=== PATIENT | female | born 1930 | race Caucasian/White ===

== ENCOUNTER 2017-12-12 15:03 | Inpatient (IN) | payer MEDICARE, BC ==
[~2017-12-12 15:03] MED LIST: ROCURONIUM BROMIDE INJ 50 MG/5 ML VIAL IV ONE; SUCCINYLCHOLINE CHLORIDE INJ 200 MG/10 ML VIAL ONE
--- NOTE | 2017-12-12 15:18 | ER Document Report ---
ED General - General Stated Complaint: VOMITING Time Seen by Provider: 12/12/17 15:17 Notes: 87-year-old female patient brought to the emergency department by her son for evaluation of nausea and vomiting. Vomiting started on Friday. Has gotten worse. States that she had abdominal pain in the central abdomen. Has never had this pain before. Denies any previous surgeries. Is hard of hearing but otherwise has no major issues. Does have difficulty ambulating but uses a walker. Takes care of her 94-year-old . TRAVEL OUTSIDE OF THE [place] IN LAST 30 DAYS: No - HPI Onset: Other - 3 days ago - Related Data Allergies/Adverse Reactions: No Known Allergies Allergy (Verified 12/12/17 17:51) Past Medical History - General Information source: Patient, Relative - Social History Smoking Status: Never Smoker Cigarette use (# per day): No Frequency of alcohol use: None Drug Abuse: None Lives with: Spouse/Significant other Family History: Reviewed & Not Pertinent - Past Medical History Cardiac Medical History: Reports: None Pulmonary Medical History: Reports: None Other: Glaucoma Neurological Medical History: Reports: None Endocrine Medical History: Reports: None Renal/ Medical History: Reports: None GI Medical History: Reports: None Psychiatric Medical History: Reports: Hx Dementia Infectious Medical History: Reports: None Past Surgical History: Reports: None Review of Systems - Review of Systems Constitutional: denies: Chills, Diaphoresis, Malaise, Weakness EENT: denies: Throat pain, Difficulty swallowing, Mouth swelling, Dental problem Respiratory: denies: Cough, Short of breath, Wheezing Gastrointestinal: Abdominal pain, Diarrhea, Nausea, Vomiting Musculoskeletal: No symptoms reported Skin: No symptoms reported Neurological/Psychological: No symptoms reported Physical Exam - Vital signs Vitals: Resp Pulse Ox 17 93 12/12/17 16:34 12/12/17 16:34 Interpretation: Tachycardic - General General appearance: Appears well, Alert - HEENT Head: Normocephalic, Atraumatic Eyes: Normal Pupils: PERRL Mucous membranes: Dry - Respiratory Respiratory status: No respiratory distress Chest status: Nontender Breath sounds: Normal Chest palpation: Normal - Cardiovascular Rhythm: Tachycardia Heart sounds: Normal auscultation Murmur: No - Abdominal Inspection: Normal Distension: No distension Bowel sounds: Normal Tenderness: Tender, Other - neg guarding, negative rebound, diffuse tenderness of the abdomen Organomegaly: No organomegaly - Back Back: Normal, Nontender - Extremities General upper extremity: Normal inspection, Nontender, Normal color, Normal ROM , Normal temperature General lower extremity: Normal inspection, Nontender, Normal color, Normal ROM , Normal temperature, Normal weight bearing. No: Summer's sign - Neurological Neuro grossly intact: Yes Cognition: Normal Orientation: AAOx4 [place] Coma Scale Eye Opening: Spontaneous Jinny Coma Scale Verbal: Oriented Pil[place] Coma Scale Motor: Obeys Commands Pilger Coma Scale Total: 15 Speech: Normal Motor strength normal: LUE, RUE, LLE, RLE Sensory: Normal - Psychological Associated symptoms: Normal affect, Normal mood - Skin Skin Temperature: Warm Skin Moisture: Dry Skin Color: Normal Course - Re-evaluation Re-evalutation: 12/12/17 16:56 CT scan of the abdomen and pelvis, labs, IV fluids, nausea control and reassess. 12/12/17 19:07 Patient now vomiting of bilious emesis. Will take to CT as continuing to drink contrast is futile. Favor more of a bowel obstruction pattern at this time. 12/12/17 19:33 CT scan reveals small bowel obstruction. NG tube ordered and will consult with surgery. Anticipate admit. 12/12/17 20:[address] Maldonado with general surgery. He will see patient shortly. 12/12/17 20:34 Surgeon in to see patient at this time. 12/12/17 20:54 Dr. Maldonado has seen patient. Will take to the OR tonight. - Vital Signs Vital signs: Temp Pulse Resp BP Pulse Ox 18 141/70 H 93 12/12/17 19:36 12/12/17 19:36 12/12/17 19:36 - Laboratory Result Diagrams: 12/12/17 16:25 12/12/17 16:25 Laboratory results interpreted by me: 12/12/17 12/12/17 12/12/17 16:25 16:25 18:30 WBC 13.0 H Seg Neutrophils % 78.4 H Lymphocytes % 9.9 L Absolute Neutrophils 10.2 H Absolute Monocytes 1.5 H Chloride 93 L Carbon Dioxide 38 H BUN 51 H Creatinine 1.31 H Est GFR ( Amer) 46 L Est GFR (Non-Af Amer) 38 L AST 59 H Urine Protein 30 H Urine Ketones TRACE H Urine Blood SMALL H Urine Urobilinogen 2.0 H Ur Leukocyte Esterase MODERATE H - EKG Interpretation by Me EKG shows normal: [place], Intervals, QRS Complexes, ST-T Waves Rate: Tachycardia Discharge - Discharge Clinical Impression: Small bowel obstruction Condition: Good Disposition: ADMITTED INPATIENT Admitting Provider: Radha Joyce [facility] [place] Unit Admitted: Medical Floor Referrals: CHINA CHAMBERLAIN FNP [Primary Care Provider] - Follow up as needed
[2017-12-12] MEDS ORDERED: ONDANSETRON HCL INJ/PF 4 MG/2 ML SDV IV ONE (15:53)
[2017-12-12 16:43] LABS: ABSOLUTE LYMPHOCYTES (AUTO) 1.3 10^3/uL (0.5-4.7); ABSOLUTE MONOCYTES (AUTO) 1.5 10^3/uL (0.1-1.4); ABSOLUTE NEUT (AUTO) 10.2 10^3/uL (1.7-8.2); BASOPHILS % (AUTO) 0.3 % (0-2); EOSINOPHILS % (AUTO) 0.2 % (0-6); HEMATOCRIT 39.4 % (36.0-47.0); HEMOGLOBIN 13.3 g/dL (12.0-15.5); LYMPHOCYTES % (AUTO) 9.9 % (13-45); MEAN CORPUSCULAR HEMOGLOBIN 32.1 pg (27.0-33.4); MEAN CORPUSCULAR HGB CONC 33.8 g/dL (32.0-36.0); MEAN CORPUSCULAR VOLUME 95 fl (80-97); MONOCYTES % (AUTO) 11.2 % (3-13); PLATELET COUNT 260 10^3/uL (150-450); RED BLOOD COUNT 4.15 10^6/uL (3.72-5.28); RED CELL DISTRIBUTION WIDTH 13.5 % (11.5-14.0); SEGMENTED NEUTROPHILS % (AUTO) 78.4 % (42-78); TOTAL CELLS COUNTED % (AUTO) 100 %
[2017-12-12 17:04] LABS: ALANINE AMINOTRANSFERASE 47 U/L (9-52); ALKALINE PHOSPHATASE 75 U/L (38-126); ANION GAP 10 (5-19); ASPARTATE AMINO TRANSFERASE 59 U/L (14-36); BILIRUBIN,DIRECT 0.3 mg/dL (0.0-0.4); BILIRUBIN,TOTAL 0.5 mg/dL (0.2-1.3); BLOOD UREA NITROGEN 51 mg/dL (7-20); CALCIUM 9.4 mg/dL (8.4-10.2); CARBON DIOXIDE 38 mmol/L (22-30); CHLORIDE 93 mmol/L (98-107); GLUCOSE 108 mg/dL (75-110); LIPASE 208.7 U/L (23-300); POTASSIUM 4.2 mmol/L (3.6-5.0); SODIUM 141.2 mmol/L (137-145); TOTAL PROTEIN 6.5 g/dL (6.3-8.2)
[2017-12-12] MEDS ORDERED: NORMAL SALINE 1000 ML 1,000 ML IV ONE (18:21)
[2017-12-12 19:05] LABS: A TYPE INFLUENZA AG NEGATIVE (NEGATIVE)
[2017-12-12 19:06] LABS: B INFLUENZA AG NEGATIVE (NEGATIVE)
[2017-12-12 19:18] LABS: APPEARANCE,URINE SLIGHTLY-CLOUDY; BILIRUBIN,URINE NEGATIVE (NEGATIVE); COLOR,URINE YELLOW; GLUCOSE, URINE NEGATIVE (NEGATIVE); KETONES,URINE TRACE mg/dL (NEGATIVE); LEUKOCYTE ESTERASE,URINE MODERATE (NEGATIVE); NITRITE,URINE NEGATIVE (NEGATIVE); PROTEIN,URINE 30 mg/dL (NEGATIVE); URINE SPECIFIC GRAVITY 1.019
--- NOTE | 2017-12-12 19:28 | RADIOLOGY REPORT (SQ) ---
EXAM DESCRIPTION: CT ABD/PELVIS WITH IV ORAL COMPLETED DATE/TIME: 12/12/2017 7:14 pm REASON FOR STUDY: diffuse abd pain COMPARISON: None. TECHNIQUE: CT scan of the abdomen and pelvis performed using helical scanning technique with dynamic intravenous contrast injection. Oral contrast also administered. Images reviewed with lung, soft ti ssue, and bone windows. Reconstructed coronal and sagittal MPR images reviewed. Delayed images for ev aluation of the urinary system also acquired. All images stored on PACS. All CT scanners at this facility use dose modulation, iterative reconstruction, and/or weight based d osing when appropriate to reduce radiation dose to as low as reasonably achievable (ALARA). [facility]: Dose Right [facility]: CareDose [facility]: Dose Right [facility]: Teradose 4D [facility]: Deskarma CONTRAST TYPE AND DOSE: contrast/concentration: Isovue 370.00 mg/ml; Total Contrast Delivered: 98.0 ml; Total Saline Delivered: 72.1 ml RENAL FUNCTION: Creatinine measures 1.31 RADIATION DOSE: CT Rad equipment meets quality standard of care and radiation dose reduction techniq ues were employed. CTDIvol: 6.0 - 8.3 mGy. DLP: 711 mGy-cm.. LIMITATIONS: None. FINDINGS: LOWER CHEST: Mild dependent subsegmental atelectasis. Small left pleural effusion. LIVER: Normal size. No masses. No dilated ducts. SPLEEN: Normal size. No focal lesions. PANCREAS: No masses. No significant calcifications. No adjacent inflammation or peripancreatic fluid collections. Pancreatic duct not dilated. GALLBLADDER: No identified stones by CT criteria. No inflammatory changes to suggest cholecystitis. ADRENAL GLANDS: No significant masses or asymmetry. RIGHT KIDNEY AND URETER: No solid masses. No significant calcifications. No hydronephrosis or hyd roureter. LEFT KIDNEY AND URETER: No solid masses. No significant calcifications. No hydronephrosis or hydr oureter. AORTA AND VESSELS: No aneurysm. No dissection. Renal arteries, SMA, celiac without stenosis. RETROPERITONEUM: No retroperitoneal adenopathy, hemorrhage or masses. BOWEL AND PERITONEAL CAVITY: There is fluid distended loops of small bowel measuring up to 4.2 cm. T here is a transition point is seen within the right lower quadrant on series 3, image 53 in series 60 1 image 31 compatible with high-grade small bowel obstruction. Note is made of inflammatory change i nvolving the terminal ileum distal to this transition point raising suspicion of infectious or inflam matory bowel disease. The colon is decompressed. There is mild stranding in nodularity involving th e omentum best seen on sagittal images 602 image 41 presumably reactive to the obstruction. There is no pneumatosis or free air. APPENDIX: Not visualized. PELVIS: No mass. No free fluid. Normal bladder. ABDOMINAL WALL: No masses. No hernias. BONES: No significant or acute findings. OTHER: No other significant finding. IMPRESSION: CT FINDINGS COMPATIBLE WITH HIGH GRADE DISTAL SMALL BOWEL OBSTRUCTION WITH TRANSITION PO INT IN THE RIGHT LOWER QUADRANT. ADDITIONAL NOTE MADE OF INFLAMMATION INVOLVING THE TERMINAL ILEUM S USPICIOUS FOR INFECTIOUS OR INFLAMMATORY BOWEL DISEASE. CORRELATE WITH PATIENT'S CLINICAL HISTORY. SMALL LEFT PLEURAL EFFUSION IN NODULAR INFLAMMATORY CHANGE INVOLVING THE OMENTUM PRESUMABLY REACTIVE TO OBSTRUCTION. TECHNICAL DOCUMENTATION: JOB ID: [id number] Quality ID # [id number]: Final reports with documentation of one or more dose reduction techniques (e.g., Au tomated exposure control, adjustment of the mA and/or kV according to patient size, use of iterative reconstruction technique) 2010 [employer]- All Rights Reserved
--- NOTE | 2017-12-12 21:00 | PDOC H&P ---
History of Present Illness Admission Date/PCP: DARRICK MONAHAN Patient complains of: nausea and bilious vomiting x 3 days History of Present Illness: BENJAMIN PRAJAPATI is a 87 year old female with 3 day hx of nausea and emesis, now bilious, progressive abdominal discomfort, obstipation for several days (not clear, she has poor memory). She has been brought ot the ER by her son who has provided most of the history. A CT scan AP has been done and it is significant for small bowel mechanical obstruction. She denies a previous hx of abdominal surgery. Past Medical History Cardiac Medical History: Reports: None Pulmonary Medical History: Reports: None Neurological Medical History: Reports: None Endocrine Medical History: Reports: None Renal/ Medical History: Reports: None GI Medical History: Reports: None Psychiatric Medical History: Reports: Dementia Infectious Medical History: Reports: None Past Surgical History Past Surgical History: Reports: None Social History Lives with: Spouse/Significant other Smoking Status: Never Smoker Family History Family History: Reviewed & Not Pertinent Parental Family History Reviewed: No Children Family History Reviewed: No Sibling(s) Family History Reviewed.: No Medication/Allergy Home Medications: Aspirin [Aspirin 81 mg Chewable Tablet] 81 mg PO DAILY 12/12/17 Brimonidine Tartrate [Alphagan P] 1 drop OD BID 12/12/17 Garlic 1,000 mg PO DAILY 12/12/17 Latanoprost [Latanoprost] 1 drop OU NOON 12/12/17 Lorazepam [Ativan 0.5 mg Tablet] 0.5 mg PO DAILY 12/12/17 Memantine HCl [Namenda 10 mg Tablet] 10 mg PO DAILY 12/12/17 Multivit with Iron,Minerals [Polyvitamin with Iron] 1 each PO DAILY 12/12/17 Ondansetron [Zofran Odt 4 mg Tablet] 1 - 2 tab PO Q4HP PRN 12/12/17 Sertraline HCl [Zoloft 50 mg Tablet] 75 mg PO DAILY 12/12/17 Spironolact/Hydrochlorothiazid [Aldactazide 50-50 Tablet] 1 each PO DAILY Allergies/Adverse Reactions: No Known Allergies Allergy (Verified 12/12/17 17:51) Physical Exam Vital Signs: Temp Pulse Resp BP Pulse Ox 18 141/70 H 93 12/12/17 19:36 12/12/17 19:36 12/12/17 19:36 General appearance: PRESENT: mild distress Head exam: PRESENT: normocephalic Eye exam: PRESENT: EOMI Neck exam: PRESENT: full ROM Cardiovascular exam: PRESENT: RRR GI/Abdominal exam: PRESENT: diminished bowel sounds, distended, tenderness - diffusely with facial grimacing Rectal exam: PRESENT: deferred Extremities exam: PRESENT: full ROM Neurological exam: PRESENT: alert, oriented to time, oriented to situation Skin exam: PRESENT: dry Results Laboratory Results: 12/12/17 16:25 12/12/17 16:25 12/12/17 12/12/17 12/12/17 16:25 16:25 16:25 WBC 13.0 H RBC 4.15 Hgb 13.3 Hct 39.4 MCV 95 MCH 32.1 MCHC 33.8 RDW 13.5 Plt Count 260 Seg Neutrophils % 78.4 H Lymphocytes % 9.9 L Monocytes % 11.2 Eosinophils % 0.2 Basophils % 0.3 Absolute Neutrophils 10.2 H Absolute Lymphocytes 1.3 Absolute Monocytes 1.5 H Absolute Eosinophils 0.0 Absolute Basophils 0.0 Sodium 141.2 Potassium 4.2 Chloride 93 L Carbon Dioxide 38 H Anion Gap 10 BUN 51 H Creatinine 1.31 H Est GFR ( Amer) 46 L Est GFR (Non-Af Amer) 38 L Glucose 108 Lactic Acid 1.0 Calcium 9.4 Total Bilirubin 0.5 AST 59 H ALT 47 Alkaline Phosphatase 75 Total Protein 6.5 Albumin 4.0 Lipase 208.7 Urine Color Urine Appearance Urine pH Ur Specific [place] Urine Protein Urine Glucose (UA) Urine Ketones Urine Blood Urine Nitrite Ur Leukocyte Esterase Urine WBC (Auto) Urine RBC (Auto) 12/12/17 18:30 WBC RBC Hgb Hct MCV MCH MCHC RDW Plt Count Seg Neutrophils % Lymphocytes % Monocytes % Eosinophils % Basophils % Absolute Neutrophils Absolute Lymphocytes Absolute Monocytes Absolute Eosinophils Absolute Basophils Sodium Potassium Chloride Carbon Dioxide Anion Gap BUN Creatinine Est GFR ( Amer) Est GFR (Non-Af Amer) Glucose Lactic Acid Calcium Total Bilirubin AST ALT Alkaline Phosphatase Total Protein Albumin Lipase Urine Color YELLOW Urine Appearance SLIGHTLY-CLOUDY Urine pH 6.0 Ur Specific [place] 1.019 Urine Protein 30 H Urine Glucose (UA) NEGATIVE Urine Ketones TRACE H Urine Blood SMALL H Urine Nitrite NEGATIVE Ur Leukocyte Esterase MODERATE H Urine WBC (Auto) 57 Urine RBC (Auto) 2 12/12/17 16:25 Troponin I 0.026 Impressions: Abdomen/Pelvis CT 12/12/17 00:00 IMPRESSION: CT FINDINGS COMPATIBLE WITH HIGH GRADE DISTAL SMALL BOWEL OBSTRUCTION WITH TRANSITION POINT IN THE RIGHT LOWER QUADRANT. ADDITIONAL NOTE MADE OF INFLAMMATION INVOLVING THE TERMINAL ILEUM SUSPICIOUS FOR INFECTIOUS OR INFLAMMATORY BOWEL DISEASE. CORRELATE WITH PATIENT'S CLINICAL HISTORY. SMALL LEFT PLEURAL EFFUSION IN NODULAR INFLAMMATORY CHANGE INVOLVING THE OMENTUM PRESUMABLY REACTIVE TO OBSTRUCTION. Assessment & Plan - Plan Summary Plan Summary: IV Aggressive hydration NGT placement preop Consent for exploratory laparotomy, lysis of adhesions, bowel resection, possible ostomy emergently tonight Procedure, risks benefits, complications, including infection, stroke, discussed with the patient and son; their questions were answered and the patient decided to proceed.
[2017-12-12] MEDS ORDERED: NORMAL SALINE 1000 ML 1,000 ML IV PRN (21:05)
[2017-12-12] MEDS ORDERED: MIDAZOLAM 2 MG/2 ML INJ ONE (21:17)
[2017-12-12] MEDS ORDERED: FENTANYL CITRATE INJ/PF 100 MCG/2 ML AMPUL ONE (21:17)
[2017-12-12] MEDS ORDERED: PROPOFOL INJ 200 MG/20 ML VIAL IV ONE (21:17)
[2017-12-12] MEDS ORDERED: MORPHINE SULFATE 10 MG/ML INJ ONE (21:18)
[2017-12-12] MEDS ORDERED: ACETAMINOPHEN 0 ML IV ONE (21:18)
[2017-12-12] MEDS ORDERED: EPHEDRINE SULFATE INJ 50 MG/1 ML AMPULE ONE (21:29)
[2017-12-12] MEDS ORDERED: BUPIVACAINE HCL 0.25 % INJ/PF (2.5 MG/1 ML) 30 ML VIAL ONE (21:29)
[2017-12-12] MEDS ORDERED: BUPIVACAINE INJ/PF LIPOSOME/PF 266 MG/20 ML SDV ONE (21:29)
[2017-12-12] MEDS ORDERED: FAMOTIDINE INJ/PF 20 MG/2 ML SDV IV SCH (22:00)
[2017-12-12] MEDS ORDERED: BUPIVACAINE HCL 0.25% /EPINEPHRINE INJ/PF 30 ML SDV ONE (22:34)
[2017-12-12] MEDS ORDERED: BUPIVACAINE HCL 0.5%-EPI 1:200000 INJ/PF 30 ML VIAL ONE ×2 (22:34→22:39)
[2017-12-12] MEDS ORDERED: CEFOXITIN 1 GM/D5W RTU 2 GM/100 ML RTUPB IV ONE (22:37)
[2017-12-12] MEDS ORDERED: MORPHINE SULFATE 10 MG/ML INJ IV PRN (23:22)
--- NOTE | 2017-12-12 23:22 | Operative Report ---
Operative Report DATE OF SURGERY: 12/12/17 PREOPERATIVE DIAGNOSIS: mechanical small bowel obstruction POSTOPERATIVE DIAGNOSIS: same, secondary to adhesions OPERATION: eexploratory laparotomy, lysis of adhesions SURGEON: JANI SALGUERO 1ST THROUGH FREIGHT ENGINEER: none ANESTHESIA: GA - plus 40 mL 05% marcaine with epi COMPLICATIONS: none ESTIMATED BLOOD LOSS: < 10 mL INTRAOPERATIVE FINDINGS: adhesive bands which were compressing the lumen of two loops if terminal ileum PROCEDURE: Exploratory laparotomy, lysis of adhesions
[2017-12-12] MEDS ORDERED: PROPOFOL 100 ML IV ONE (23:37)
--- NOTE | 2017-12-13 00:38 | RADIOLOGY REPORT (SQ) ---
EXAM DESCRIPTION: CHEST SINGLE VIEW CLINICAL HISTORY: 87 years, Female, intubation COMPARISON: None. NUMBER OF VIEWS: 1 LIMITATIONS: None. FINDINGS: Mild emphysematous hyperinflation, small left basilar opacity-effusion, tip of an endotracheal tube is likely 2.8 cm from the juan a; juan a is partially obscured by an overlying EKG leads. Normal cardiac silhouette. Atherosclerosis. Likely adequate enteric tube partially obscured at its tip. No pneumothorax. Mild osteoarthritis. IMPRESSION: Small left basilar opacity-fusion. Lines and tubes. 2010 [employer]- All Rights Reserved
[2017-12-13] MEDS: CEFOXITIN 1 GM/D5W RTU 1 GM/50 ML RTUPB IV SCH ×4 (02:29→21:10)
[2017-12-13] MEDS: FAMOTIDINE INJ/PF 20 MG/2 ML SDV IV SCH ×2 (02:29→21:11)
[2017-12-13] MEDS: HYDROMORPHONE HCL INJ/PF 2 MG/ML AMPULE IV PRN ×2 (02:39→08:01)
[2017-12-13 05:28] LABS: HEMATOCRIT 35.7 % (36.0-47.0); HEMOGLOBIN 12.3 g/dL (12.0-15.5); MEAN CORPUSCULAR HEMOGLOBIN 32.6 pg (27.0-33.4); MEAN CORPUSCULAR HGB CONC 34.4 g/dL (32.0-36.0); MEAN CORPUSCULAR VOLUME 95 fl (80-97); PLATELET COUNT 205 10^3/uL (150-450); RED BLOOD COUNT 3.78 10^6/uL (3.72-5.28); RED CELL DISTRIBUTION WIDTH 13.2 % (11.5-14.0); WHITE BLOOD COUNT 17.6 10^3/uL (4.0-10.5)
[2017-12-13 05:53] LABS: ARTERIAL BLOOD BASE EXCESS 8.2 mmol/L; ARTERIAL BLOOD H2CO3 1.06 mmol/L (1.05-1.35); ARTERIAL BLOOD HCO3 30.7 mmol/L (20-26); ARTERIAL BLOOD O2 SATURATION 95.4 % (94-98); ARTERIAL BLOOD PCO2 35.1 mmHg (35-45); ARTERIAL BLOOD PH 7.56 (7.35-7.45); ARTERIAL BLOOD PO2 66.2 mmHg (80-100); ARTERIAL BLOOD TOTAL CO2 31.8 mmol/L (21-25)
[2017-12-13 05:54] LABS: ANION GAP 7 (5-19); BLOOD UREA NITROGEN 35 mg/dL (7-20); CALCIUM 7.8 mg/dL (8.4-10.2); CARBON DIOXIDE 32 mmol/L (22-30); CHLORIDE 101 mmol/L (98-107); GLUCOSE 108 mg/dL (75-110); MAGNESIUM 2.2 mg/dL (1.6-2.3); POTASSIUM 3.3 mmol/L (3.6-5.0); SODIUM 139.9 mmol/L (137-145)
[2017-12-13 05:57] LABS: ARTERIAL BLOOD FIO2 40%
[2017-12-13] MEDS: PROPOFOL 100 ML IV PRN ×2 (06:09→19:32)
--- NOTE | 2017-12-13 07:46 | RADIOLOGY REPORT (SQ) ---
EXAM DESCRIPTION: CHEST SINGLE VIEW CLINICAL HISTORY: 87 years, Female, ETT COMPARISON: 12/12/17. NUMBER OF VIEWS: 1 LIMITATIONS: None. FINDINGS: Small bibasilar opacity-effusion, moderate lung volume, adequate appearing endotracheal tube and enteric tube, no pneumothorax, normal cardiac silhouette, atherosclerosis, and mild osteoarthritis. IMPRESSION: No significant change.
--- NOTE | 2017-12-13 08:53 | PDOC PROGRESS REPORT ---
Subjective Progress Note for:: 12/13/17 Subjective:: intubated, comfortable, off sedation Reason For Visit: SMALL BOWEL OBSTRUCTION Physical Exam Vital Signs: Temp Pulse Resp BP Pulse Ox 98.8 F 69 12 114/56 L 96 12/13/17 08:00 12/13/17 08:00 12/13/17 08:00 12/13/17 08:00 12/13/17 08:00 Intake & Output 12/12/17 12/13/17 12/14/17 06:59 06:59 06:59 Intake Total 2878 Output Total 2009 50 Balance 868 -50 Weight 55.6 kg General appearance: PRESENT: no acute distress Respiratory exam: PRESENT: clear to auscultation sacha Cardiovascular exam: PRESENT: RRR GI/Abdominal exam: PRESENT: soft Results Laboratory Results: 12/13/17 05:10 12/13/17 05:10 12/12/17 12/13/17 12/13/17 22:05 05:10 05:10 WBC 17.6 H RBC 3.78 Hgb 12.3 Hct 35.7 L MCV 95 MCH 32.6 MCHC 34.4 RDW 13.2 Plt Count 205 Carbonic Acid HCO3/H2CO3 Ratio ABG pH ABG pCO2 ABG pO2 ABG HCO3 ABG O2 Saturation ABG Base Excess FiO2 Sodium 139.9 Potassium 3.3 L Chloride 101 Carbon Dioxide 32 H Anion Gap 7 BUN 35 H Creatinine 1.09 Est GFR ( Amer) 57 L Est GFR (Non-Af Amer) 47 L Glucose 108 Calcium 7.8 L Magnesium 2.2 Blood Type B NEGATIVE Antibody Screen POSITIVE 12/13/17 05:30 WBC RBC Hgb Hct MCV MCH MCHC RDW Plt Count Carbonic Acid 1.06 HCO3/H2CO3 Ratio 28:1 ABG pH 7.56 H ABG pCO2 35.1 ABG pO2 66.2 L ABG HCO3 30.7 H ABG O2 Saturation 95.4 ABG Base Excess 8.2 FiO2 40% Sodium Potassium Chloride Carbon Dioxide Anion Gap BUN Creatinine Est GFR ( Amer) Est GFR (Non-Af Amer) Glucose Calcium Magnesium Blood Type Antibody Screen Impressions: Abdomen/Pelvis CT 12/12/17 00:00 IMPRESSION: CT FINDINGS COMPATIBLE WITH HIGH GRADE DISTAL SMALL BOWEL OBSTRUCTION WITH TRANSITION POINT IN THE RIGHT LOWER QUADRANT. ADDITIONAL NOTE MADE OF INFLAMMATION INVOLVING THE TERMINAL ILEUM SUSPICIOUS FOR INFECTIOUS OR INFLAMMATORY BOWEL DISEASE. CORRELATE WITH PATIENT'S CLINICAL HISTORY. SMALL LEFT PLEURAL EFFUSION IN NODULAR INFLAMMATORY CHANGE INVOLVING THE OMENTUM PRESUMABLY REACTIVE TO OBSTRUCTION. Chest X-Ray 12/13/17 06:00 IMPRESSION: No significant change. Assessment & Plan - Plan Summary Plan Summary: A/ Apneic episodes off sedation POD #1 after expl. laparotomy, SHANKAR good UO still moderate NGT output Low K marginal ABG's P/ Replace K 40 mEq IVPB Continue IVF/NPO I would keep patient in the ICU for today Slow extubation
--- NOTE | 2017-12-13 08:54 | PDOC CONSULTATION ---
Consultation Consult Date: 12/13/17 Attending physician:: Dr Maldonado Consult reason:: Postoperative medical management History of Present Illness Admission Date/PCP: 12/12/17 21:01 DARRICK MONAHAN Patient complains of: Severe abdominal pain History of Present Illness: This is an 87-year-old old who presented to the ED with severe abdominal pain and was diagnosed of small bowel obstruction Patient underwent laparotomy with lysis of adhesions on Surgery was uncomplicated, patient was left intubated overnight in the intensive care unit Past Medical History Cardiac Medical History: Reports: None Pulmonary Medical History: Reports: None EENT Medical History: Reports: Other - Glaucoma Neurological Medical History: Reports: None Endocrine Medical History: Reports: None Renal/ Medical History: Reports: None GI Medical History: Reports: None Psychiatric Medical History: Reports: Dementia Infectious Medical History: Reports: None Past Surgical History Past Surgical History: Reports: None Social History Information Source: Relative Lives with: Spouse/Significant other Smoking Status: Unknown if Ever Smoked Frequency of Alcohol Use: None Hx Recreational Drug Use: No - unk Drugs: None Hx Prescription Drug Abuse: No - Advance Directive Resuscitation Status: Full Code Surrogate healthcare decision maker:: Cali Richard Family History Parental Family History Reviewed: Yes - Father of an [place] ; mother had dementia Children Family History Reviewed: NA Sibling(s) Family History Reviewed.: NA - Patient is an only child Medication/Allergy Home Medications: Aspirin [Aspirin 81 mg Chewable Tablet] 81 mg PO DAILY 12/12/17 Brimonidine Tartrate [Alphagan P] 1 drop OD BID 12/12/17 Garlic 1,000 mg PO DAILY 12/12/17 Latanoprost [Latanoprost] 1 drop OU NOON 12/12/17 Lorazepam [Ativan 0.5 mg Tablet] 0.5 mg PO DAILY 12/12/17 Memantine HCl [Namenda 10 mg Tablet] 10 mg PO DAILY 12/12/17 Multivit with Iron,Minerals [Polyvitamin with Iron] 1 each PO DAILY 12/12/17 Ondansetron [Zofran Odt 4 mg Tablet] 1 - 2 tab PO Q4HP PRN 12/12/17 Sertraline HCl [Zoloft 50 mg Tablet] 75 mg PO DAILY 12/12/17 Spironolact/Hydrochlorothiazid [Aldactazide 50-50 Tablet] 1 each PO DAILY Allergies/Adverse Reactions: No Known Allergies Allergy (Verified 12/12/17 17:51) Review of Systems ROS unobtainable: Due to endotracheal tube Physical Exam Vital Signs: Temp Pulse Resp BP Pulse Ox 98.8 F 69 12 114/56 L 96 12/13/17 08:00 12/13/17 08:00 12/13/17 08:00 12/13/17 08:00 12/13/17 08:00 Intake & Output 12/12/17 12/13/17 12/14/17 00:59 00:59 00:59 Intake Total 2000 878 Output Total 1610 450 Balance 390 428 Weight 55.6 kg General appearance: PRESENT: no acute distress, well-developed, well-nourished Head exam: PRESENT: atraumatic, normocephalic Eye exam: PRESENT: conjunctiva pink, EOMI, PERRLA. ABSENT: scleral icterus Ear exam: PRESENT: normal external ear exam Mouth exam: PRESENT: moist, tongue midline Neck exam: ABSENT: carotid bruit, JVD, lymphadenopathy, thyromegaly Respiratory exam: PRESENT: clear to auscultation sacha. ABSENT: rales, rhonchi, wheezes Cardiovascular exam: PRESENT: RRR. ABSENT: diastolic murmur, rubs, systolic murmur Pulses: PRESENT: normal dorsalis pedis pul Vascular exam: PRESENT: normal capillary refill GI/Abdominal exam: PRESENT: normal bowel sounds, soft. ABSENT: distended, guarding, mass, organolmegaly, rebound, tenderness Rectal exam: PRESENT: deferred Neurological exam: PRESENT: other - Cannot evaluate patient is intubated and sedated Skin exam: PRESENT: dry, intact, warm. ABSENT: cyanosis, rash Results Laboratory Results: 12/13/17 05:10 12/13/17 05:10 12/12/17 12/13/17 12/13/17 22:05 05:10 05:10 WBC 17.6 H RBC 3.78 Hgb 12.3 Hct 35.7 L MCV 95 MCH 32.6 MCHC 34.4 RDW 13.2 Plt Count 205 Carbonic Acid HCO3/H2CO3 Ratio ABG pH ABG pCO2 ABG pO2 ABG HCO3 ABG O2 Saturation ABG Base Excess FiO2 Sodium 139.9 Potassium 3.3 L Chloride 101 Carbon Dioxide 32 H Anion Gap 7 BUN 35 H Creatinine 1.09 Est GFR ( Amer) 57 L Est GFR (Non-Af Amer) 47 L Glucose 108 Calcium 7.8 L Magnesium 2.2 Blood Type B NEGATIVE Antibody Screen POSITIVE 12/13/17 05:30 WBC RBC Hgb Hct MCV MCH MCHC RDW Plt Count Carbonic Acid 1.06 HCO3/H2CO3 Ratio 28:1 ABG pH 7.56 H ABG pCO2 35.1 ABG pO2 66.2 L ABG HCO3 30.7 H ABG O2 Saturation 95.4 ABG Base Excess 8.2 FiO2 40% Sodium Potassium Chloride Carbon Dioxide Anion Gap BUN Creatinine Est GFR ( Amer) Est GFR (Non-Af Amer) Glucose Calcium Magnesium Blood Type Antibody Screen EKG Comments: SINUS TACHYCARDIA [MVSPC] . MULTIPLE PREMATURE COMPLEXES, VENT & SUPRAVEN Impressions: Abdomen/Pelvis CT 12/12/17 00:00 IMPRESSION: CT FINDINGS COMPATIBLE WITH HIGH GRADE DISTAL SMALL BOWEL OBSTRUCTION WITH TRANSITION POINT IN THE RIGHT LOWER QUADRANT. ADDITIONAL NOTE MADE OF INFLAMMATION INVOLVING THE TERMINAL ILEUM SUSPICIOUS FOR INFECTIOUS OR INFLAMMATORY BOWEL DISEASE. CORRELATE WITH PATIENT'S CLINICAL HISTORY. SMALL LEFT PLEURAL EFFUSION IN NODULAR INFLAMMATORY CHANGE INVOLVING THE OMENTUM PRESUMABLY REACTIVE TO OBSTRUCTION. Chest X-Ray 12/13/17 06:00 IMPRESSION: No significant change. Assessment & Plan - Diagnosis (1) UTI (urinary tract infection) Is this a current diagnosis for this admission?: Yes Plan: Patient does have leukocytosis in the urine analysis is suggestive of UTI She is currently on cefoxitin which is adequate coverage for UTI Continue present medications Her urine cultures pending (2) Small bowel obstruction Is this a current diagnosis for this admission?: Yes Plan: Management as per surgery Patient is status post laparotomy and lysis of adhesions (3) Glaucoma Qualifiers: Open angle glaucoma type: unspecified type Laterality: unspecified laterality Glaucoma stage: stage unspecified Is this a current diagnosis for this admission?: Yes Plan: Resume prior meds (4) Dementia Qualifiers: Dementia type: unspecified type Dementia behavioral disturbance: without behavioral disturbance Qualified Code(s): F03.90 - Unspecified dementia without behavioral disturbance Is this a current diagnosis for this admission?: Yes Plan: Avoid opiates and benzos (5) Ambulatory dysfunction Is this a current diagnosis for this admission?: Yes Plan: PT evaluation when clinically possible - Time Time Spent with patient: Patient will be extubated this morning We will follow Time Spent: 50 to 70 Minutes
[2017-12-13] MEDS: POTASSI CL 20 MEQ/50 ML RIDER 20 MEQ/50 ML RTUPB IV SCH ×2 (09:52→12:00)
[2017-12-13] MEDS: ENOXAPARIN SODIUM INJ 30 MG/0.3 ML DISP.SYRIN SUBCUT SCH (09:53)
[2017-12-13] MEDS ORDERED: DILTIAZEM HCL INJ 25 MG/5 ML VIAL ONE (10:03)
--- NOTE | 2017-12-13 10:16 | EKG REPORT ---
SEVERITY:- ABNORMAL ECG - SINUS TACHYCARDIA MULTIPLE PREMATURE COMPLEXES, SUPRAVEN : Confirmed by: Suri Wade 13-Dec-2017 10:16:28
--- NOTE | 2017-12-13 10:17 | EKG REPORT ---
SEVERITY:- ABNORMAL ECG - SINUS TACHYCARDIA PROBABLE POSTERIOR INFARCT : Confirmed by: Suri Wade 13-Dec-2017 10:16:33
[2017-12-13] MEDS ORDERED: DILTIAZEM HCL INJ 25 MG/5 ML VIAL IV ONE (10:30)
[2017-12-13] MEDS ORDERED: NORMAL SALINE 500 ML IV ONE (10:30)
[2017-12-13] MEDS ORDERED: NORMAL SALINE 500 ML IV PRN (11:40)
--- NOTE | 2017-12-13 11:45 | Progress Note ---
Provider Note Provider Note: Patient had an episode of paroxysmal A. fib at a rate of 140-160 She responded to fluid bolus and Cardizem 10 mg IV push She is now in A. fib at a rate of 100 with a blood pressure systolic at 90/50 We will order an EKG CT of the chest to rule out PE, serial troponins Attempt to withdraw ventilatory support earlier this morning failed this patient had apneic episodes cardiology and pulmonary consult were requested
[2017-12-13] MEDS ORDERED: MORPHINE SULFATE 10 MG/ML INJ ONE (13:09)
[2017-12-13] MEDS: DILTIAZEM HCL/D5W 125 MG/125 ML RTUINJ IV PRN (16:20)
[2017-12-13] MEDS: MORPHINE SULFATE 10 MG/ML INJ IV PRN ×2 (17:24→21:13)
[2017-12-13] MEDS: LATANOPROST 0.005% OPH SOLN 2.5 ML OU SCH (18:50)
--- NOTE | 2017-12-13 19:03 | OPERATIVE REPORT E ---
Operative Report NAME: BENJAMIN PRAJAPATI : 1930 AGE: 87Y DATE OF SURGERY: 12/12/2017 ROOM: 606 PREOPERATIVE DIAGNOSIS: MECHANICAL SMALL-BOWEL OBSTRUCTION. POSTOPERATIVE DIAGNOSIS: MECHANICAL SMALL-BOWEL OBSTRUCTION SECONDARY TO ADHESIONS. PROCEDURES: 1. Exploratory laparotomy. 2. Lysis of adhesions. SURGEON: JANI SALGUERO M.D. FORMATION FRACTURING OPERATOR: None. ESTIMATED BLOOD LOSS: Less than 10 mL. COMPLICATIONS: None. ANESTHESIA: General plus 40 mL of 0.5% Marcaine with epinephrine. FLUIDS: 2000 URINE OUTPUT: 50 DRAINS: None. INDICATION AND FINDINGS: An 87-year-old female with a 3-4 day history of abdominal pain, distention, nausea, vomiting, now bilious, who presents to the emergency room with the above symptoms. CT scan of the abdomen and pelvis was done with IV and oral contrast, demonstrating a small-bowel obstruction. The patient was quickly prepared for surgery by administration of IV fluids and scheduled to undergo exploratory laparotomy, possible lysis of adhesions, possible bowel resection, possible ostomy. Procedures, benefits, complications explained to the patient and her son. She was told the above and decided to proceed. DESCRIPTION OF PROCEDURE: It was done in the operating room. The patient was placed in supine position. General anesthesia induced by endotracheal intubation. Snider catheter and NGT were placed. Abdomen was prepped and draped in the usual fashion. Following a timeout, an incision was made along the midline from above to just below the umbilicus. The linea alba was divided with a Bovie. The peritoneal cavity was entered. A small amount of ascites was identified and aspirated. The small bowel was then eviscerated. The proximal jejunum and ileum were found to be completely distended. Terminal ileum was found to be collapsed. During evisceration of the small bowel, several bands of scar tissue causing kinking and compression of the lumen of the mid ileum were bluntly divided. The first small bowel was completely eviscerated. The ileocecal valve and the terminal ileum were identified. The small bowel was then traced in a distal-proximal fashion, and then again in a proximal-distal fashion, without evidence of additional adhesive bands. The small bowel vascularity was checked with the Doppler and found to be acceptable throughout the entire loops of jejunum and ileum. The nasogastric tube position was then verified by hand. The small bowel was replaced within the peritoneal cavity. The linea alba was then closed with a running #1 looped PDS suture. The subcutaneous tissue was infiltrated with Marcaine 0.5% with epinephrine. The skin edges were then closed with jennifer. Sterile dressings were applied. The patient tolerated the procedure well, left intubated, and transferred to the ICU in satisfactory condition. DICTATING PHYSICIAN: JANI SALGUERO M.D. [id number] PHY#: [id number] ID: [id number] JOB#: [id number] ACCT: [id number] cc:JANI SALGUERO M.D. > MTDD
[2017-12-13] MEDS ORDERED: BRIMONIDINE TARTRATE 0.2% OPH SOLN 5 ML ONE (19:35)
[2017-12-13] MEDS: BRIMONIDINE TARTRATE 0.2% OPH SOLN 5 ML OD SCH (19:48)
--- NOTE | 2017-12-13 22:11 | EKG REPORT ---
SEVERITY:- BORDERLINE ECG - SINUS RHYTHM BORDERLINE PROLONGED QT INTERVAL : Confirmed by: Suri Wade 13-Dec-2017 22:10:37
[2017-12-13 22:37] LABS: ARTERIAL BLOOD BASE EXCESS 0.2 mmol/L; ARTERIAL BLOOD HCO3 25.3 mmol/L (20-26); ARTERIAL BLOOD O2 SATURATION 95.6 % (94-98); ARTERIAL BLOOD PCO2 43.1 mmHg (35-45); ARTERIAL BLOOD PH 7.39 (7.35-7.45); ARTERIAL BLOOD PO2 79.4 mmHg (80-100); ARTERIAL BLOOD TOTAL CO2 26.7 mmol/L (21-25)
[2017-12-13 22:38] LABS: ARTERIAL BLOOD FIO2 35%
[2017-12-13] MEDS: LEVALBUTEROL HCL NEB 0.63 MG/3 ML AMPUL NEB SCH (23:35)
[2017-12-14] MEDS ORDERED: FENTANYL CITRATE INJ/PF 100 MCG/2 ML AMPUL IV ONE (02:15)
[2017-12-14 04:24] LABS: ABSOLUTE LYMPHOCYTES (AUTO) 0.9 10^3/uL (0.5-4.7); ABSOLUTE NEUT (AUTO) 9.6 10^3/uL (1.7-8.2); BASOPHILS % (AUTO) 0.1 % (0-2); EOSINOPHILS % (AUTO) 0.2 % (0-6); HEMATOCRIT 31.9 % (36.0-47.0); HEMOGLOBIN 10.5 g/dL (12.0-15.5); LYMPHOCYTES % (AUTO) 7.8 % (13-45); MEAN CORPUSCULAR HEMOGLOBIN 31.8 pg (27.0-33.4); MEAN CORPUSCULAR HGB CONC 33.1 g/dL (32.0-36.0); MEAN CORPUSCULAR VOLUME 96 fl (80-97); MONOCYTES % (AUTO) 8.8 % (3-13); PLATELET COUNT 181 10^3/uL (150-450); RED BLOOD COUNT 3.31 10^6/uL (3.72-5.28); RED CELL DISTRIBUTION WIDTH 13.5 % (11.5-14.0); SEGMENTED NEUTROPHILS % (AUTO) 83.1 % (42-78); TOTAL CELLS COUNTED % (AUTO) 100 %; WHITE BLOOD COUNT 11.5 10^3/uL (4.0-10.5)
[2017-12-14 04:35] LABS: ARTERIAL BLOOD BASE EXCESS -0.3 mmol/L; ARTERIAL BLOOD H2CO3 1.01 mmol/L (1.05-1.35); ARTERIAL BLOOD HCO3 23.2 mmol/L (20-26); ARTERIAL BLOOD O2 SATURATION 96.3 % (94-98); ARTERIAL BLOOD PCO2 33.7 mmHg (35-45); ARTERIAL BLOOD PH 7.46 (7.35-7.45); ARTERIAL BLOOD PO2 78.6 mmHg (80-100); ARTERIAL BLOOD TOTAL CO2 24.2 mmol/L (21-25)
[2017-12-14 04:41] LABS: ALANINE AMINOTRANSFERASE 40 U/L (9-52); ALBUMIN 2.5 g/dL (3.5-5.0); ALKALINE PHOSPHATASE 52 U/L (38-126); ANION GAP 7 (5-19); ASPARTATE AMINO TRANSFERASE 37 U/L (14-36); BILIRUBIN,DIRECT 0.4 mg/dL (0.0-0.4); BILIRUBIN,TOTAL 0.5 mg/dL (0.2-1.3); BLOOD UREA NITROGEN 24 mg/dL (7-20); CALCIUM 7.7 mg/dL (8.4-10.2); CARBON DIOXIDE 24 mmol/L (22-30); CHLORIDE 109 mmol/L (98-107); GLUCOSE 92 mg/dL (75-110); MAGNESIUM 2.2 mg/dL (1.6-2.3); POTASSIUM 3.7 mmol/L (3.6-5.0); SODIUM 140.4 mmol/L (137-145); TOTAL PROTEIN 4.4 g/dL (6.3-8.2)
[2017-12-14 04:41] LABS: ARTERIAL BLOOD FIO2 35%
[2017-12-14] MEDS: CEFOXITIN 1 GM/D5W RTU 1 GM/50 ML RTUPB IV SCH ×2 (05:46→14:39)
[2017-12-14] MEDS: DILTIAZEM HCL/D5W 125 MG/125 ML RTUINJ IV PRN ×2 (05:46→14:52)
[2017-12-14] MEDS: LEVALBUTEROL HCL NEB 0.63 MG/3 ML AMPUL NEB SCH ×3 (07:30→23:33)
--- NOTE | 2017-12-14 07:56 | RADIOLOGY REPORT (SQ) ---
EXAM DESCRIPTION: CHEST SINGLE VIEW CLINICAL HISTORY: 87 years, Female, resp failure COMPARISON: 12/13/17. NUMBER OF VIEWS: 1 LIMITATIONS: None. FINDINGS: Moderate left basilar opacity, small right basilar patchiness, no pneumothorax, normal cardiac silhouette, atherosclerosis, adequate appearing and endotracheal tube, likely adequate enteric tube obscured distally, mild/moderate osteoarthritis. IMPRESSION: No significant change.
--- NOTE | 2017-12-14 08:40 | PDOC PROGRESS REPORT ---
Subjective Progress Note for:: 12/14/17 Subjective:: alert, intubated, off sedation, responsive to commands Reason For Visit: SMALL BOWEL OBSTRUCTION Physical Exam Vital Signs: Temp Pulse Resp BP Pulse Ox 99.8 F 112 H 21 H 135/54 H 100 12/14/17 07:56 12/14/17 08:02 12/14/17 07:56 12/14/17 07:56 12/14/17 07:56 Intake & Output 12/13/17 12/14/17 12/15/17 06:59 06:59 06:59 Intake Total 287 3177 Output Total 20095 90 Balance 868 2482 -90 Weight 55.6 kg General appearance: PRESENT: no acute distress, cooperative Respiratory exam: PRESENT: clear to auscultation sacha Cardiovascular exam: PRESENT: RRR GI/Abdominal exam: PRESENT: normal bowel sounds, soft, other - wound c/d/i, Neurological exam: PRESENT: alert, other - 4 exrtemities motor function intact Results Laboratory Results: 12/14/17 04:14 12/14/17 04:14 12/12/17 12/13/17 12/13/17 22:05 18:36 22:30 WBC RBC Hgb Hct MCV MCH MCHC RDW Plt Count Seg Neutrophils % Lymphocytes % Monocytes % Eosinophils % Basophils % Absolute Neutrophils Absolute Lymphocytes Absolute Monocytes Absolute Eosinophils Absolute Basophils Carbonic Acid 1.30 HCO3/H2CO3 Ratio 19:1 ABG pH 7.39 ABG pCO2 43.1 ABG pO2 79.4 L ABG HCO3 25.3 ABG O2 Saturation 95.6 ABG Base Excess 0.2 FiO2 35% Sodium Potassium 3.8 Chloride Carbon Dioxide Anion Gap BUN Creatinine Est GFR ( Amer) Est GFR (Non-Af Amer) Glucose Calcium Magnesium Total Bilirubin AST ALT Alkaline Phosphatase Total Protein Albumin Blood Type B NEGATIVE Antibody Screen POSITIVE 12/14/17 12/14/17 12/14/17 04:14 04:14 04:20 WBC 11.5 H RBC 3.31 L Hgb 10.5 L Hct 31.9 L MCV 96 MCH 31.8 MCHC 33.1 RDW 13.5 Plt Count 181 Seg Neutrophils % 83.1 H Lymphocytes % 7.8 L Monocytes % 8.8 Eosinophils % 0.2 Basophils % 0.1 Absolute Neutrophils 9.6 H Absolute Lymphocytes 0.9 Absolute Monocytes 1.0 Absolute Eosinophils 0.0 Absolute Basophils 0.0 Carbonic Acid 1.01 L HCO3/H2CO3 Ratio 22:1 ABG pH 7.46 H ABG pCO2 33.7 L ABG pO2 78.6 L ABG HCO3 23.2 ABG O2 Saturation 96.3 ABG Base Excess -0.3 FiO2 35% Sodium 140.4 Potassium 3.7 Chloride 109 H Carbon Dioxide 24 Anion Gap 7 BUN 24 H Creatinine 0.81 Est GFR ( Amer) > 60 Est GFR (Non-Af Amer) > 60 Glucose 92 Calcium 7.7 L Magnesium 2.2 Total Bilirubin 0.5 AST 37 H ALT 40 Alkaline Phosphatase 52 Total Protein 4.4 L Albumin 2.5 L Blood Type Antibody Screen 12/13/17 12/13/17 12/14/17 12:33 18:36 00:30 Troponin I 0.021 0.018 0.020 Impressions: Abdomen/Pelvis CT 12/12/17 00:00 IMPRESSION: CT FINDINGS COMPATIBLE WITH HIGH GRADE DISTAL SMALL BOWEL OBSTRUCTION WITH TRANSITION POINT IN THE RIGHT LOWER QUADRANT. ADDITIONAL NOTE MADE OF INFLAMMATION INVOLVING THE TERMINAL ILEUM SUSPICIOUS FOR INFECTIOUS OR INFLAMMATORY BOWEL DISEASE. CORRELATE WITH PATIENT'S CLINICAL HISTORY. SMALL LEFT PLEURAL EFFUSION IN NODULAR INFLAMMATORY CHANGE INVOLVING THE OMENTUM PRESUMABLY REACTIVE TO OBSTRUCTION. Chest X-Ray 12/14/17 06:00 IMPRESSION: No significant change. Assessment & Plan - Diagnosis (1) Small bowel obstruction Is this a current diagnosis for this admission?: Yes - Plan Summary Plan Summary: A/ POD#2 after expl. laparotomy, SHANKAR VSS, AF Alert, cooperative after sedation off PE unremarkable good ABG's lab work acceptable P/ Extubation as per Pulmonary today clamp NGT after extubation, if residual < 150 mL, remove NGT and start clear liquid diet
[2017-12-14] MEDS: ENOXAPARIN SODIUM INJ 30 MG/0.3 ML DISP.SYRIN SUBCUT SCH (09:00)
[2017-12-14] MEDS: BRIMONIDINE TARTRATE 0.2% OPH SOLN 5 ML OD SCH (09:02)
--- NOTE | 2017-12-14 10:15 | PDOC PROGRESS REPORT ---
Subjective Progress Note for:: 12/14/17 Subjective:: 87-year-old female with past medical history of Dementia Glaucoma Presented to the hospital on December 12 with a 3 day history of nausea vomiting abdominal pain and obstipation. She was brought to the emergency room by her son who provided most of the history. CAT scan of the abdomen and pelvis showed significant small bowel mechanical obstruction. Was taken for emergent exploratory laparotomy lysis of adhesions and bowel resection. Surgery was uncomplicated, patient was left intubated and transferred to the ICU. She is currently undergoing a trial of wean. Her eyes are open. She follows commands. She is on a Cardizem drip at 10 mg/h. She is in atrial fibrillation which is rate controlled. Reason For Visit: SMALL BOWEL OBSTRUCTION Physical Exam Vital Signs: Temp Pulse Resp BP Pulse Ox 98.9 F 88 7 L 98/50 L 99 12/13/17 18:00 12/13/17 23:40 12/14/17 02:46 12/14/17 02:45 12/14/17 04:00 Intake & Output 12/12/17 12/13/17 12/14/17 06:59 06:59 06:59 Intake Total 2878 2097 Output Total 2009 Balance 868 1402 Weight 55.6 kg Additional comments: Frail elderly female lying in bed she is dated and undergoing trial of wean NG tube to low wall suction Pupils equal and reactive light moist pink oropharyngeal mucosa Neck is supple Lungs: Clear to auscultation bilaterally Cardiac: S1-S2 irregular no peripheral edema no cyanosis no calf tenderness Abdomen: Midline surgical scar present, mild generalized tenderness, normal bowel sounds Skin: Warm and dry Results Laboratory Results: 12/14/17 04:14 12/14/17 04:14 12/12/17 12/13/17 12/13/17 22:05 18:36 22:30 WBC RBC Hgb Hct MCV MCH MCHC RDW Plt Count Seg Neutrophils % Lymphocytes % Monocytes % Eosinophils % Basophils % Absolute Neutrophils Absolute Lymphocytes Absolute Monocytes Absolute Eosinophils Absolute Basophils Carbonic Acid 1.30 HCO3/H2CO3 Ratio 19:1 ABG pH 7.39 ABG pCO2 43.1 ABG pO2 79.4 L ABG HCO3 25.3 ABG O2 Saturation 95.6 ABG Base Excess 0.2 FiO2 35% Sodium Potassium 3.8 Chloride Carbon Dioxide Anion Gap BUN Creatinine Est GFR ( Amer) Est GFR (Non-Af Amer) Glucose Calcium Magnesium Total Bilirubin AST ALT Alkaline Phosphatase Total Protein Albumin Blood Type B NEGATIVE Antibody Screen POSITIVE 12/14/17 12/14/17 12/14/17 04:14 04:14 04:20 WBC 11.5 H RBC 3.31 L Hgb 10.5 L Hct 31.9 L MCV 96 MCH 31.8 MCHC 33.1 RDW 13.5 Plt Count 181 Seg Neutrophils % 83.1 H Lymphocytes % 7.8 L Monocytes % 8.8 Eosinophils % 0.2 Basophils % 0.1 Absolute Neutrophils 9.6 H Absolute Lymphocytes 0.9 Absolute Monocytes 1.0 Absolute Eosinophils 0.0 Absolute Basophils 0.0 Carbonic Acid 1.01 L HCO3/H2CO3 Ratio 22:1 ABG pH 7.46 H ABG pCO2 33.7 L ABG pO2 78.6 L ABG HCO3 23.2 ABG O2 Saturation 96.3 ABG Base Excess -0.3 FiO2 35% Sodium 140.4 Potassium 3.7 Chloride 109 H Carbon Dioxide 24 Anion Gap 7 BUN 24 H Creatinine 0.81 Est GFR ( Amer) > 60 Est GFR (Non-Af Amer) > 60 Glucose 92 Calcium 7.7 L Magnesium 2.2 Total Bilirubin 0.5 AST 37 H ALT 40 Alkaline Phosphatase 52 Total Protein 4.4 L Albumin 2.5 L Blood Type Antibody Screen 12/13/17 12/13/17 12/14/17 12:33 18:36 00:30 Troponin I 0.021 0.018 0.020 Impressions: Abdomen/Pelvis CT 12/12/17 00:00 IMPRESSION: CT FINDINGS COMPATIBLE WITH HIGH GRADE DISTAL SMALL BOWEL OBSTRUCTION WITH TRANSITION POINT IN THE RIGHT LOWER QUADRANT. ADDITIONAL NOTE MADE OF INFLAMMATION INVOLVING THE TERMINAL ILEUM SUSPICIOUS FOR INFECTIOUS OR INFLAMMATORY BOWEL DISEASE. CORRELATE WITH PATIENT'S CLINICAL HISTORY. SMALL LEFT PLEURAL EFFUSION IN NODULAR INFLAMMATORY CHANGE INVOLVING THE OMENTUM PRESUMABLY REACTIVE TO OBSTRUCTION. Chest X-Ray 12/13/17 06:00 IMPRESSION: No significant change. Assessment & Plan - Diagnosis (1) UTI (urinary tract infection) Is this a current diagnosis for this admission?: Yes Plan: Day 3 of Cefoxitin. Urine cultures are growing gram-negative rods. Identification pending. (2) Small bowel obstruction Is this a current diagnosis for this admission?: Yes Plan: Management per surgical service. (3) Ambulatory dysfunction Is this a current diagnosis for this admission?: Yes (4) Dementia Qualifiers: Dementia type: unspecified type Dementia behavioral disturbance: without behavioral disturbance Qualified Code(s): F03.90 - Unspecified dementia without behavioral disturbance Is this a current diagnosis for this admission?: Yes (5) Glaucoma Qualifiers: Open angle glaucoma type: unspecified type Laterality: unspecified laterality Glaucoma stage: stage unspecified Is this a current diagnosis for this admission?: Yes Plan: Continue eyedrops.
--- NOTE | 2017-12-14 17:37 | PDOC CONSULTATION ---
Consultation Consult Date: 12/13/17 Attending physician:: JEFF DEL CID Consult reason:: resp failure History of Present Illness Admission Date/PCP: 12/12/17 21:01 DARRICK MONAHAN History of Present Illness: All history from chart:This is an 87-year-old old who presented to the ED with severe abdominal pain and was diagnosed of small bowel obstruction Patient underwent laparotomy with lysis of adhesions on Surgery was uncomplicated, patient was left intubated overnight in the intensive care unit Past Medical History Cardiac Medical History: Reports: None Pulmonary Medical History: Reports: None EENT Medical History: Reports: Other - Glaucoma Denies: Ears Neurological Medical History: Reports: None Denies: Multiple Sclerosis, Seizures Endocrine Medical History: Reports: None Denies: Gestational Diabetes, Obesity Renal/ Medical History: Denies: Nephrolithiasis GI Medical History: Denies: Crohn's Disease, Ulcerative Colitis Musculoskeltal Medical History: Denies: Fibromyalgia Skin Medical History: Denies: Psoriasis Psychiatric Medical History: Reports: Dementia Traumatic Medical History: Denies: Traumatic Brain Injury Hematology: Reports: Other - Glaucoma Denies: Sickle Cell Disease Infectious Medical History: Denies: Hepatitis B, Hepatitis C Past Surgical History Past Surgical History: Reports: None Social History Information Source: [facility] Records Lives with: Spouse/Significant other Smoking Status: Unknown if Ever Smoked Frequency of Alcohol Use: None Hx Recreational Drug Use: No - unk Drugs: None Hx Prescription Drug Abuse: No Do you have pets?: No Have you had any respiratory illnesses as a child?: No Have you travelled outside of [place] in the past 12 months?: No - Advance Directive Resuscitation Status: Full Code Family History Parental Family History Reviewed: No Children Family History Reviewed: No Sibling(s) Family History Reviewed.: No Medication/Allergy Home Medications: Brimonidine Tartrate [Alphagan P] 1 drop OD BID 12/13/17 Latanoprost [Xalatan] 1 drop OU QHS 12/13/17 Lorazepam [Ativan 0.5 mg Tablet] 0.5 mg PO BIDP PRN 12/13/17 Memantine HCl [Namenda 10 mg Tablet] 10 mg PO DAILY 12/13/17 Sertraline HCl [Zoloft 50 mg Tablet] 75 mg PO DAILY 12/13/17 Spironolactone [Aldactone] 50 mg PO QAMP PRN 12/13/17 Allergies/Adverse Reactions: No Known Allergies Allergy (Verified 12/12/17 17:51) Review of Systems ROS unobtainable: Due to endotracheal tube Physical Exam Vital Signs: Temp Pulse Resp BP Pulse Ox 98.9 F 105 H 14 96/56 L 96 12/13/17 18:00 12/13/17 18:00 12/13/17 19:45 12/13/17 19:45 12/13/17 19:45 Intake & Output 12/12/17 12/13/17 12/14/17 06:59 06:59 06:59 Intake Total 2878 7 Output Total 2009 260 Balance 868 1837 Weight 55.6 kg General appearance: PRESENT: no acute distress, disheveled, thin. ABSENT: cooperative, mild distress, morbidly obese, obese, severe distress Head exam: PRESENT: atraumatic, normocephalic Eye exam: PRESENT: conjunctiva pale. ABSENT: conjunctival injection, conjunctiva pink, nystagmus, periorbital swelling, scleral icterus Mouth exam: PRESENT: dry mucosa, neck supple, tongue midline, other - ET tube. ABSENT: laceration, moist Neck exam: ABSENT: carotid bruit, JVD, lymphadenopathy, thyromegaly, tracheal deviation, tracheostomy Respiratory exam: PRESENT: decreased breath sounds, prolonged expiratory phas, rhonchi, symmetrical, unlabored. ABSENT: accessory muscle use, chest wall tenderness, clear to auscultation sacha, crackles, rales, retraction, stridor, tachypnea Cardiovascular exam: PRESENT: RRR, +S1, +S2 Pulses: PRESENT: normal radial pulses GI/Abdominal exam: PRESENT: other - s/p surdery Gentrourinary exam: PRESENT: indwelling catheter Extremities exam: ABSENT: clubbing, joint swelling Musculoskeletal exam: ABSENT: ambulatory, deformity, dislocation Neurological exam: ABSENT: alert, awake Skin exam: PRESENT: dry, warm Results Laboratory Results: 12/13/17 05:10 12/13/17 18:36 12/12/17 12/13/17 12/13/17 22:05 05:10 05:10 WBC 17.6 H RBC 3.78 Hgb 12.3 Hct 35.7 L MCV 95 MCH 32.6 MCHC 34.4 RDW 13.2 Plt Count 205 Carbonic Acid HCO3/H2CO3 Ratio ABG pH ABG pCO2 ABG pO2 ABG HCO3 ABG O2 Saturation ABG Base Excess FiO2 Sodium 139.9 Potassium 3.3 L Chloride 101 Carbon Dioxide 32 H Anion Gap 7 BUN 35 H Creatinine 1.09 Est GFR ( Amer) 57 L Est GFR (Non-Af Amer) 47 L Glucose 108 Calcium 7.8 L Magnesium 2.2 Blood Type B NEGATIVE Antibody Screen POSITIVE 12/13/17 12/13/17 05:30 18:36 WBC RBC Hgb Hct MCV MCH MCHC RDW Plt Count Carbonic Acid 1.06 HCO3/H2CO3 Ratio 28:1 ABG pH 7.56 H ABG pCO2 35.1 ABG pO2 66.2 L ABG HCO3 30.7 H ABG O2 Saturation 95.4 ABG Base Excess 8.2 FiO2 40% Sodium Potassium 3.8 Chloride Carbon Dioxide Anion Gap BUN Creatinine Est GFR ( Amer) Est GFR (Non-Af Amer) Glucose Calcium Magnesium Blood Type Antibody Screen 12/13/17 12/13/17 12:33 18:36 Troponin I 0.021 0.018 Impressions: Abdomen/Pelvis CT 12/12/17 00:00 IMPRESSION: CT FINDINGS COMPATIBLE WITH HIGH GRADE DISTAL SMALL BOWEL OBSTRUCTION WITH TRANSITION POINT IN THE RIGHT LOWER QUADRANT. ADDITIONAL NOTE MADE OF INFLAMMATION INVOLVING THE TERMINAL ILEUM SUSPICIOUS FOR INFECTIOUS OR INFLAMMATORY BOWEL DISEASE. CORRELATE WITH PATIENT'S CLINICAL HISTORY. SMALL LEFT PLEURAL EFFUSION IN NODULAR INFLAMMATORY CHANGE INVOLVING THE OMENTUM PRESUMABLY REACTIVE TO OBSTRUCTION. Chest X-Ray 12/13/17 06:00 IMPRESSION: No significant change. Assessment & Plan - Diagnosis (1) Ambulatory dysfunction Is this a current diagnosis for this admission?: Yes (2) Dementia Qualifiers: Dementia type: unspecified type Dementia behavioral disturbance: without behavioral disturbance Qualified Code(s): F03.90 - Unspecified dementia without behavioral disturbance Is this a current diagnosis for this admission?: Yes (3) Glaucoma Qualifiers: Open angle glaucoma type: unspecified type Laterality: unspecified laterality Glaucoma stage: stage unspecified Is this a current diagnosis for this admission?: Yes (4) Small bowel obstruction Is this a current diagnosis for this admission?: Yes Plan: as per surgery - Time Total Critical Time (Minutes): 60
--- NOTE | 2017-12-14 17:41 | PDOC PROGRESS REPORT ---
Subjective Progress Note for:: 12/14/17 Subjective:: awake Reason For Visit: SMALL BOWEL OBSTRUCTION Physical Exam Vital Signs: Temp Pulse Resp BP Pulse Ox 98.9 F 88 21 H 117/57 L 96 12/13/17 18:00 12/13/17 23:40 12/14/17 06:45 12/14/17 06:30 12/14/17 06:45 Intake & Output 12/13/17 12/14/17 12/15/17 06:59 06:59 06:59 Intake Total 2878 3177 Output Total 2009 Balance 868 2482 Weight 55.6 kg General appearance: PRESENT: no acute distress, disheveled, thin. ABSENT: mild distress, morbidly obese, obese, severe distress Head exam: PRESENT: atraumatic, normocephalic Eye exam: PRESENT: conjunctiva pale, EOMI. ABSENT: conjunctival injection, conjunctiva pink, nystagmus, periorbital swelling, scleral icterus Mouth exam: PRESENT: dry mucosa. ABSENT: laceration, moist Neck exam: ABSENT: carotid bruit, JVD, lymphadenopathy, thyromegaly, tracheal deviation, tracheostomy Respiratory exam: PRESENT: decreased breath sounds, prolonged expiratory phas, rales, rhonchi, symmetrical, unlabored. ABSENT: accessory muscle use, chest wall tenderness, clear to auscultation sacha, crackles, retraction, stridor, tachypnea Cardiovascular exam: PRESENT: RRR, +S1, +S2 Pulses: PRESENT: normal radial pulses GI/Abdominal exam: PRESENT: other - s/p surgery Gentrourinary exam: PRESENT: indwelling catheter Extremities exam: ABSENT: clubbing, joint swelling Musculoskeletal exam: ABSENT: ambulatory, deformity, dislocation Neurological exam: PRESENT: awake Focused psych exam: PRESENT: delusional Skin exam: PRESENT: dry, warm Results Laboratory Results: 12/14/17 04:14 12/14/17 04:14 12/12/17 12/13/17 12/13/17 22:05 18:36 22:30 WBC RBC Hgb Hct MCV MCH MCHC RDW Plt Count Seg Neutrophils % Lymphocytes % Monocytes % Eosinophils % Basophils % Absolute Neutrophils Absolute Lymphocytes Absolute Monocytes Absolute Eosinophils Absolute Basophils Carbonic Acid 1.30 HCO3/H2CO3 Ratio 19:1 ABG pH 7.39 ABG pCO2 43.1 ABG pO2 79.4 L ABG HCO3 25.3 ABG O2 Saturation 95.6 ABG Base Excess 0.2 FiO2 35% Sodium Potassium 3.8 Chloride Carbon Dioxide Anion Gap BUN Creatinine Est GFR ( Amer) Est GFR (Non-Af Amer) Glucose Calcium Magnesium Total Bilirubin AST ALT Alkaline Phosphatase Total Protein Albumin Blood Type B NEGATIVE Antibody Screen POSITIVE 12/14/17 12/14/17 12/14/17 04:14 04:14 04:20 WBC 11.5 H RBC 3.31 L Hgb 10.5 L Hct 31.9 L MCV 96 MCH 31.8 MCHC 33.1 RDW 13.5 Plt Count 181 Seg Neutrophils % 83.1 H Lymphocytes % 7.8 L Monocytes % 8.8 Eosinophils % 0.2 Basophils % 0.1 Absolute Neutrophils 9.6 H Absolute Lymphocytes 0.9 Absolute Monocytes 1.0 Absolute Eosinophils 0.0 Absolute Basophils 0.0 Carbonic Acid 1.01 L HCO3/H2CO3 Ratio 22:1 ABG pH 7.46 H ABG pCO2 33.7 L ABG pO2 78.6 L ABG HCO3 23.2 ABG O2 Saturation 96.3 ABG Base Excess -0.3 FiO2 35% Sodium 140.4 Potassium 3.7 Chloride 109 H Carbon Dioxide 24 Anion Gap 7 BUN 24 H Creatinine 0.81 Est GFR ( Amer) > 60 Est GFR (Non-Af Amer) > 60 Glucose 92 Calcium 7.7 L Magnesium 2.2 Total Bilirubin 0.5 AST 37 H ALT 40 Alkaline Phosphatase 52 Total Protein 4.4 L Albumin 2.5 L Blood Type Antibody Screen 12/13/17 12/13/17 12/14/17 12:33 18:36 00:30 Troponin I 0.021 0.018 0.020 Impressions: Abdomen/Pelvis CT 12/12/17 00:00 IMPRESSION: CT FINDINGS COMPATIBLE WITH HIGH GRADE DISTAL SMALL BOWEL OBSTRUCTION WITH TRANSITION POINT IN THE RIGHT LOWER QUADRANT. ADDITIONAL NOTE MADE OF INFLAMMATION INVOLVING THE TERMINAL ILEUM SUSPICIOUS FOR INFECTIOUS OR INFLAMMATORY BOWEL DISEASE. CORRELATE WITH PATIENT'S CLINICAL HISTORY. SMALL LEFT PLEURAL EFFUSION IN NODULAR INFLAMMATORY CHANGE INVOLVING THE OMENTUM PRESUMABLY REACTIVE TO OBSTRUCTION. Assessment & Plan - Diagnosis (1) Respiratory failure Is this a current diagnosis for this admission?: Yes Plan: per pcp extubate exspect she will do well (2) Ambulatory dysfunction Is this a current diagnosis for this admission?: Yes (3) Dementia Qualifiers: Dementia type: unspecified type Dementia behavioral disturbance: without behavioral disturbance Qualified Code(s): F03.90 - Unspecified dementia without behavioral disturbance Is this a current diagnosis for this admission?: Yes (4) Glaucoma Qualifiers: Open angle glaucoma type: unspecified type Laterality: unspecified laterality Glaucoma stage: stage unspecified Is this a current diagnosis for this admission?: Yes (5) Small bowel obstruction Is this a current diagnosis for this admission?: Yes Plan: as per surgery - Time Total Critical Time (Minutes): 45
[2017-12-14] MEDS: LATANOPROST 0.005% OPH SOLN 2.5 ML OU SCH (18:06)
[2017-12-14] MEDS: NORMAL SALINE 1000 ML 1,000 ML IV PRN (18:37)
[2017-12-14] MEDS ORDERED: DIPHENHYDRAMINE HCL 25 MG CAPSULE ONE (20:14)
[2017-12-14] MEDS ORDERED: DIPHENHYDRAMINE HCL 50 MG CAPSULE PO ONE (20:15)
[2017-12-15] MEDS: MORPHINE SULFATE 10 MG/ML INJ IV PRN ×2 (02:31→21:00)
[2017-12-15] MEDS: BRIMONIDINE TARTRATE 0.2% OPH SOLN 5 ML OD SCH ×3 (06:27→21:00)
[2017-12-15] MEDS: CEFOXITIN 1 GM/D5W RTU 1 GM/50 ML RTUPB IV SCH ×2 (06:28→06:31)
[2017-12-15] MEDS: FAMOTIDINE INJ/PF 20 MG/2 ML SDV IV SCH ×2 (06:31→21:01)
[2017-12-15 06:43] LABS: ABSOLUTE EOSINOPHILS # (AUTO) 0.1 10^3/uL (0.0-0.6); ABSOLUTE MONOCYTES (AUTO) 0.9 10^3/uL (0.1-1.4); ABSOLUTE NEUT (AUTO) 8.4 10^3/uL (1.7-8.2); BASOPHILS % (AUTO) 0.2 % (0-2); EOSINOPHILS % (AUTO) 0.9 % (0-6); HEMATOCRIT 28.4 % (36.0-47.0); HEMOGLOBIN 9.6 g/dL (12.0-15.5); LYMPHOCYTES % (AUTO) 9.7 % (13-45); MEAN CORPUSCULAR HEMOGLOBIN 32.5 pg (27.0-33.4); MEAN CORPUSCULAR HGB CONC 33.8 g/dL (32.0-36.0); MEAN CORPUSCULAR VOLUME 96 fl (80-97); MONOCYTES % (AUTO) 8.9 % (3-13); PLATELET COUNT 172 10^3/uL (150-450); RED BLOOD COUNT 2.96 10^6/uL (3.72-5.28); RED CELL DISTRIBUTION WIDTH 13.4 % (11.5-14.0); SEGMENTED NEUTROPHILS % (AUTO) 80.3 % (42-78); TOTAL CELLS COUNTED % (AUTO) 100 %; WHITE BLOOD COUNT 10.5 10^3/uL (4.0-10.5)
[2017-12-15 07:07] LABS: BLOOD UREA NITROGEN 16 mg/dL (7-20); CALCIUM 7.8 mg/dL (8.4-10.2); CARBON DIOXIDE 24 mmol/L (22-30); CHLORIDE 113 mmol/L (98-107); GLUCOSE 95 mg/dL (75-110); POTASSIUM 3.2 mmol/L (3.6-5.0); SODIUM 142.5 mmol/L (137-145)
[2017-12-15 07:08] LABS: ANION GAP 6 (5-19); MAGNESIUM 2.2 mg/dL (1.6-2.3)
[2017-12-15 07:56] LABS: ARTERIAL BLOOD BASE EXCESS -1.1 mmol/L; ARTERIAL BLOOD FIO2 7L; ARTERIAL BLOOD H2CO3 1.25 mmol/L (1.05-1.35); ARTERIAL BLOOD O2 SATURATION 98.2 % (94-98); ARTERIAL BLOOD PCO2 41.6 mmHg (35-45); ARTERIAL BLOOD PH 7.38 (7.35-7.45); ARTERIAL BLOOD PO2 116.1 mmHg (80-100); ARTERIAL BLOOD TOTAL CO2 25.3 mmol/L (21-25)
[2017-12-15] MEDS: LEVALBUTEROL HCL NEB 0.63 MG/3 ML AMPUL NEB SCH ×2 (08:46→15:59)
--- NOTE | 2017-12-15 08:50 | RADIOLOGY REPORT (SQ) ---
EXAM DESCRIPTION: CHEST SINGLE VIEW COMPLETED DATE/TIME: 12/15/2017 7:41 am REASON FOR STUDY: resp failure COMPARISON: Chest films 12/13/2017, 12/14/2017 EXAM PARAMETERS: NUMBER OF VIEWS: One view. TECHNIQUE: Single frontal radiographic view of the chest acquired. RADIATION DOSE: NA LIMITATIONS: Kyphotic patient FINDINGS: LUNGS AND PLEURA: Loss of the discrete left hemidiaphragm with retrocardiac air bronchogra ms from left lower lobe airspace disease atelectasis versus pneumonia. This is new compared to 2017. Right lung grossly clear. No gross pleural effusions or pneumothorax. MEDIASTINUM AND HILAR STRUCTURES: No masses. Contour normal. HEART AND VASCULAR STRUCTURES: Moderate cardiomegaly BONES: No acute findings. HARDWARE: None in the chest. OTHER: No other significant finding. IMPRESSION: Left retrocardiac consolidation atelectasis versus pneumonia TECHNICAL DOCUMENTATION: JOB ID: [id number] [email or web address]- All Rights Reserved
--- NOTE | 2017-12-15 09:46 | PDOC PROGRESS REPORT ---
Subjective Progress Note for:: 12/15/17 Subjective:: Patient confused overnight. Did receive morphine earlier this morning; following simple commands Reason For Visit: SMALL BOWEL OBSTRUCTION Physical Exam Vital Signs: Temp Pulse Resp BP Pulse Ox 99.5 F 89 13 112/60 98 12/15/17 08:00 12/15/17 09:19 12/15/17 08:00 12/15/17 08:00 12/15/17 08:00 Intake & Output 12/14/17 12/15/17 12/16/17 06:59 06:59 06:59 Intake Total 3177 1293 Output Total 695 820 60 Balance 2482 473 -60 General appearance: PRESENT: other - Eyes open; follows simple commands Respiratory exam: PRESENT: other - Some upper respiratory gurgling GI/Abdominal exam: PRESENT: other - Dressing removed; jennifer intact. Results Laboratory Results: 12/15/17 06:18 12/15/17 06:18 12/15/17 12/15/17 12/15/17 06:18 06:18 07:30 WBC 10.5 RBC 2.96 L Hgb 9.6 L Hct 28.4 L MCV 96 MCH 32.5 MCHC 33.8 RDW 13.4 Plt Count 172 Seg Neutrophils % 80.3 H Lymphocytes % 9.7 L Monocytes % 8.9 Eosinophils % 0.9 Basophils % 0.2 Absolute Neutrophils 8.4 H Absolute Lymphocytes 1.0 Absolute Monocytes 0.9 Absolute Eosinophils 0.1 Absolute Basophils 0.0 Carbonic Acid 1.25 HCO3/H2CO3 Ratio 19:1 ABG pH 7.38 ABG pCO2 41.6 ABG pO2 116.1 H ABG HCO3 24.0 ABG O2 Saturation 98.2 H ABG Base Excess -1.1 FiO2 7L Sodium 142.5 Potassium 3.2 L Chloride 113 H Carbon Dioxide 24 Anion Gap 6 BUN 16 Creatinine 0.73 Est GFR ( Amer) > 60 Est GFR (Non-Af Amer) > 60 Glucose 95 Calcium 7.8 L Magnesium 2.2 12/13/17 12/13/17 12/14/17 12:33 18:36 00:30 Troponin I 0.021 0.018 0.020 Impressions: Abdomen/Pelvis CT 12/12/17 00:00 IMPRESSION: CT FINDINGS COMPATIBLE WITH HIGH GRADE DISTAL SMALL BOWEL OBSTRUCTION WITH TRANSITION POINT IN THE RIGHT LOWER QUADRANT. ADDITIONAL NOTE MADE OF INFLAMMATION INVOLVING THE TERMINAL ILEUM SUSPICIOUS FOR INFECTIOUS OR INFLAMMATORY BOWEL DISEASE. CORRELATE WITH PATIENT'S CLINICAL HISTORY. SMALL LEFT PLEURAL EFFUSION IN NODULAR INFLAMMATORY CHANGE INVOLVING THE OMENTUM PRESUMABLY REACTIVE TO OBSTRUCTION. Chest X-Ray 12/15/17 06:00 IMPRESSION: Left retrocardiac consolidation atelectasis versus pneumonia Status: Imported from PACS Assessment & Plan - Diagnosis (1) Small bowel obstruction Is this a current diagnosis for this admission?: Yes Plan: Patient now postoperative day 3 status post exploratory laparotomy, moderate extensive lysis of adhesions open, doing reasonably well, extubated, tolerating clear liquids; pulmonary toilet needs closer attention. Plan: 1. Discontinue IV antibiotics 2. Will step up pulmonary toilet, cough and deep breathing coughing and out of bed to chair: Will get speech therapy involved. 3. Potentially transfer patient to the floor. 4. Potassium of 3.2 being replaced intravenously.
--- NOTE | 2017-12-15 10:29 | PDOC PROGRESS REPORT ---
Subjective Progress Note for:: 12/15/17 Subjective:: 87-year-old female with past medical history of Dementia Glaucoma She presented to the hospital on December 12 with a 3 day history of nausea vomiting abdominal pain and obstipation. CAT scan of the abdomen and pelvis showed significant small bowel mechanical obstruction. Was taken for emergent exploratory laparotomy lysis of adhesions and bowel resection. Surgery was uncomplicated, patient was left intubated and transferred to the ICU. She developed A. fib RVR and was up on a Cardizem drip. She was successfully extubated on December 14. Reason For Visit: SMALL BOWEL OBSTRUCTION Physical Exam Vital Signs: Temp Pulse Resp BP Pulse Ox 99.5 F 89 13 112/60 98 12/15/17 08:00 12/15/17 09:19 12/15/17 08:00 12/15/17 08:00 12/15/17 08:00 Intake & Output 12/14/17 12/15/17 12/16/17 06:59 06:59 06:59 Intake Total 3177 1293 Output Total 695 820 60 Balance 2482 473 -60 Additional comments: Frail elderly female lying in bed not in acute distress, she has a nonrebreather. Pupils equal and reactive light moist pink oropharyngeal mucosa Neck is supple, trachea is midline Lungs: Clear to auscultation bilaterally Cardiac: S1-S2 irregular no peripheral edema no cyanosis no calf tenderness Abdomen: Midline surgical scar present, mild generalized tenderness, normal bowel sounds Skin: Warm and dry Results Laboratory Results: 12/15/17 06:18 12/15/17 06:18 12/15/17 12/15/17 12/15/17 06:18 06:18 07:30 WBC 10.5 RBC 2.96 L Hgb 9.6 L Hct 28.4 L MCV 96 MCH 32.5 MCHC 33.8 RDW 13.4 Plt Count 172 Seg Neutrophils % 80.3 H Lymphocytes % 9.7 L Monocytes % 8.9 Eosinophils % 0.9 Basophils % 0.2 Absolute Neutrophils 8.4 H Absolute Lymphocytes 1.0 Absolute Monocytes 0.9 Absolute Eosinophils 0.1 Absolute Basophils 0.0 Carbonic Acid 1.25 HCO3/H2CO3 Ratio 19:1 ABG pH 7.38 ABG pCO2 41.6 ABG pO2 116.1 H ABG HCO3 24.0 ABG O2 Saturation 98.2 H ABG Base Excess -1.1 FiO2 7L Sodium 142.5 Potassium 3.2 L Chloride 113 H Carbon Dioxide 24 Anion Gap 6 BUN 16 Creatinine 0.73 Est GFR ( Amer) > 60 Est GFR (Non-Af Amer) > 60 Glucose 95 Calcium 7.8 L Magnesium 2.2 12/13/17 12/13/17 12/14/17 12:33 18:36 00:30 Troponin I 0.021 0.018 0.020 Impressions: Abdomen/Pelvis CT 12/12/17 00:00 IMPRESSION: CT FINDINGS COMPATIBLE WITH HIGH GRADE DISTAL SMALL BOWEL OBSTRUCTION WITH TRANSITION POINT IN THE RIGHT LOWER QUADRANT. ADDITIONAL NOTE MADE OF INFLAMMATION INVOLVING THE TERMINAL ILEUM SUSPICIOUS FOR INFECTIOUS OR INFLAMMATORY BOWEL DISEASE. CORRELATE WITH PATIENT'S CLINICAL HISTORY. SMALL LEFT PLEURAL EFFUSION IN NODULAR INFLAMMATORY CHANGE INVOLVING THE OMENTUM PRESUMABLY REACTIVE TO OBSTRUCTION. Chest X-Ray 12/15/17 06:00 IMPRESSION: Left retrocardiac consolidation atelectasis versus pneumonia Assessment & Plan - Diagnosis (1) UTI (urinary tract infection) Is this a current diagnosis for this admission?: Yes Plan: Day 4 of Cefoxitin. Urine cultures are growing E. coli. (2) Small bowel obstruction Is this a current diagnosis for this admission?: Yes Plan: Management per surgical service. (3) Ambulatory dysfunction Is this a current diagnosis for this admission?: Yes Plan: PT evaluation, discharge planning consult for possible SNF placement for subacute rehabilitation. (4) Dementia Qualifiers: Dementia type: unspecified type Dementia behavioral disturbance: without behavioral disturbance Qualified Code(s): F03.90 - Unspecified dementia without behavioral disturbance Is this a current diagnosis for this admission?: Yes (5) Glaucoma Qualifiers: Open angle glaucoma type: unspecified type Laterality: unspecified laterality Glaucoma stage: stage unspecified Is this a current diagnosis for this admission?: Yes Plan: Continue eyedrops. (6) Atrial fibrillation Is this a current diagnosis for this admission?: Yes Plan: We will start her on p.o. Cardizem. - Time Time Spent with patient: 35 or more minutes
[2017-12-15] MEDS: ENOXAPARIN SODIUM INJ 30 MG/0.3 ML DISP.SYRIN SUBCUT SCH (10:56)
[2017-12-15] MEDS ORDERED: FUROSEMIDE INJ/PF 20 MG/2 ML SDV IV ONE (12:00)
[2017-12-15] MEDS ORDERED: DILTIAZEM HCL 30 MG TABLET PO SCH (12:00)
[2017-12-15] MEDS ORDERED: DIGOXIN INJ 0.5 MG/2 ML AMPULE IV ONE (13:00)
[2017-12-15] MEDS ORDERED: DILTIAZEM HCL INJ 25 MG/5 ML VIAL IV ONE (13:00)
[2017-12-15] MEDS: NORMAL SALINE 1000 ML 1,000 ML IV PRN ×2 (13:28→19:32)
[2017-12-15] MEDS: POTASSI CL 20 MEQ/50 ML RIDER 20 MEQ/50 ML RTUPB IV SCH ×2 (13:28→15:20)
--- NOTE | 2017-12-15 17:16 | PDOC PROGRESS REPORT ---
Subjective Progress Note for:: 12/15/17 Subjective:: Lethargic but awake Reason For Visit: SMALL BOWEL OBSTRUCTION Physical Exam Vital Signs: Temp Pulse Resp BP Pulse Ox 99.5 F 89 13 112/60 98 12/15/17 08:00 12/15/17 09:19 12/15/17 08:00 12/15/17 08:00 12/15/17 08:00 Intake & Output 12/14/17 12/15/17 12/16/17 06:59 06:59 06:59 Intake Total 3177 1293 Output Total 695 820 60 Balance 2482 473 -60 General appearance: PRESENT: no acute distress, cooperative, disheveled, thin. ABSENT: mild distress, morbidly obese, obese, severe distress Head exam: PRESENT: atraumatic, normocephalic Eye exam: PRESENT: conjunctiva pale. ABSENT: conjunctival injection, conjunctiva pink, nystagmus, periorbital swelling, scleral icterus Mouth exam: PRESENT: laceration, neck supple, tongue midline. ABSENT: dry mucosa, moist Neck exam: ABSENT: carotid bruit, JVD, lymphadenopathy, thyromegaly, tracheal deviation, tracheostomy Respiratory exam: PRESENT: decreased breath sounds, prolonged expiratory phas, rhonchi, symmetrical, unlabored. ABSENT: accessory muscle use, chest wall tenderness, clear to auscultation sacha, crackles, rales, retraction, stridor, tachypnea Cardiovascular exam: PRESENT: RRR, +S1, +S2 Pulses: PRESENT: normal radial pulses GI/Abdominal exam: PRESENT: other - Status post surgical intervention Extremities exam: ABSENT: clubbing, full ROM, joint swelling Musculoskeletal exam: ABSENT: ambulatory, deformity, dislocation, full ROM Neurological exam: PRESENT: altered Skin exam: PRESENT: dry, warm Results Laboratory Results: 12/15/17 06:18 12/15/17 06:18 12/15/17 12/15/17 12/15/17 06:18 06:18 07:30 WBC 10.5 RBC 2.96 L Hgb 9.6 L Hct 28.4 L MCV 96 MCH 32.5 MCHC 33.8 RDW 13.4 Plt Count 172 Seg Neutrophils % 80.3 H Lymphocytes % 9.7 L Monocytes % 8.9 Eosinophils % 0.9 Basophils % 0.2 Absolute Neutrophils 8.4 H Absolute Lymphocytes 1.0 Absolute Monocytes 0.9 Absolute Eosinophils 0.1 Absolute Basophils 0.0 Carbonic Acid 1.25 HCO3/H2CO3 Ratio 19:1 ABG pH 7.38 ABG pCO2 41.6 ABG pO2 116.1 H ABG HCO3 24.0 ABG O2 Saturation 98.2 H ABG Base Excess -1.1 FiO2 7L Sodium 142.5 Potassium 3.2 L Chloride 113 H Carbon Dioxide 24 Anion Gap 6 BUN 16 Creatinine 0.73 Est GFR ( Amer) > 60 Est GFR (Non-Af Amer) > 60 Glucose 95 Calcium 7.8 L Magnesium 2.2 12/13/17 12/13/17 12/14/17 12:33 18:36 00:30 Troponin I 0.021 0.018 0.020 Impressions: Abdomen/Pelvis CT 12/12/17 00:00 IMPRESSION: CT FINDINGS COMPATIBLE WITH HIGH GRADE DISTAL SMALL BOWEL OBSTRUCTION WITH TRANSITION POINT IN THE RIGHT LOWER QUADRANT. ADDITIONAL NOTE MADE OF INFLAMMATION INVOLVING THE TERMINAL ILEUM SUSPICIOUS FOR INFECTIOUS OR INFLAMMATORY BOWEL DISEASE. CORRELATE WITH PATIENT'S CLINICAL HISTORY. SMALL LEFT PLEURAL EFFUSION IN NODULAR INFLAMMATORY CHANGE INVOLVING THE OMENTUM PRESUMABLY REACTIVE TO OBSTRUCTION. Chest X-Ray 12/15/17 06:00 IMPRESSION: Left retrocardiac consolidation atelectasis versus pneumonia Assessment & Plan - Diagnosis (1) Ambulatory dysfunction Is this a current diagnosis for this admission?: Yes (2) Dementia Qualifiers: Dementia type: unspecified type Dementia behavioral disturbance: without behavioral disturbance Qualified Code(s): F03.90 - Unspecified dementia without behavioral disturbance Is this a current diagnosis for this admission?: Yes (3) Glaucoma Qualifiers: Open angle glaucoma type: unspecified type Laterality: unspecified laterality Glaucoma stage: stage unspecified Is this a current diagnosis for this admission?: Yes (4) Small bowel obstruction Is this a current diagnosis for this admission?: Yes Plan: as per surgery (5) Respiratory failure Is this a current diagnosis for this admission?: Yes Plan: 24 hours status post extubation stable at this time
[2017-12-15] MEDS ORDERED: ACETAMINOPHEN 650 MG SUPP.RECT PR PRN (17:32)
--- NOTE | 2017-12-15 17:58 | XCELERA REPORT ---
[address] [address] Transthoracic Echocardiogram Report Name: BENJAMIN PRAJAPATI Age: 87 yrs Gender: Female : 1930 Patient Status: Inpatient Patient Location: ICU^606^A Study Date: 12/15/2017 03:04 PM Height: 63 in Weight: 122 lb BSA: 1.6 m2 Procedure: A two-dimensional transthoracic echocardiogram with color flow Doppler was performed. Study Quality: Fair. Reason For Study: Atrial fib / chf History: Atrial fib / chf. Ordering Physician: ROSETTE OLIVER Performed By: Soila Lewis Interpretation Summary A two-dimensional transthoracic echocardiogram with color flow Doppler was performed. Atrial fib / chf The left ventricle is normal in size. There is normal left ventricular wall thickness. LV EF is > than 60% Left ventricular systolic function is normal. Doppler measurements suggest normal left ventricular diastolic function The left ventricular wall motion is normal. There is no thrombus. The right ventricle is normal in size and function. The right atrium is normal. The left atrial size is normal. There is no evidence of mitral valve prolapse. There is no mitral valve stenosis. There is a trace amount of mitral regurgitation There is no aortic valvular vegetation. There is no aortic valve stenosis No aortic regurgitation is present. There is no tricuspid stenosis. There is a mild to moderate amount of tricuspid regurgitation There is moderate pulmonary hypertension by echo RVSP is 50 mm of Hg , with RA mean of 10. There is no pulmonic valvular stenosis. There is a trace amount of pulmonic regurgitation The aortic root is normal size. There is no pericardial effusion. MMode/2D Measurements & Calculations RVDd: 2.4 cm LVIDd: 3.5 cm FS: 26.9 % Ao root diam: 2.4 cm IVSd: 0.96 cm LVIDs: 2.5 cm EDV(Teich): 50.3 ml LVPWd: 0.96 cm ESV(Teich): 23.3 ml Ao root area: 4.5 cm2 EF(Teich): 53.6 % LA dimension: 3.0 cm Doppler Measurements & Calculations MV E max eun: MV P1/2t max eun: Ao V2 max: LV V1 max P.9 cm/sec 123.9 cm/sec 114.6 cm/sec 4.8 mmHg MV A max eun: MV P1/2t: 55.6 msec Ao max PG: LV V1 max: 113.5 cm/sec 5.3 mmHg 109.6 cm/sec MV E/A: 1.1 MVA(P1/2t): 4.0 cm2 MV dec slope: 652.9 cm/sec2 MV dec time: 0.18 sec PA V2 max: PI end-d eun: TR max eun: 75.5 cm/sec 115.4 cm/sec 316.3 cm/sec PA max PG: TR max P.3 mmHg 40.0 mmHg Left Ventricle The left ventricle is normal in size. There is normal left ventricular wall thickness. LV EF is > than 60%. Left ventricular systolic function is normal. Doppler measurements suggest normal left ventricular diastolic function. The left ventricular wall motion is normal. There is no thrombus. Right Ventricle The right ventricle is normal in size and function. Atria The right atrium is normal. The left atrial size is normal. Mitral Valve There is mild mitral annular calcification. There is no evidence of mitral valve prolapse. There is no vegetation seen on the mitral valve. There is no mitral valve stenosis. There is a trace amount of mitral regurgitation. Aortic Valve There is no aortic valvular vegetation. There is no aortic valve stenosis. There is no LVOT obstruction. No aortic regurgitation is present. Tricuspid Valve There is no tricuspid stenosis. There is a mild to moderate amount of tricuspid regurgitation. There is moderate pulmonary hypertension by echo. RVSP is 50 mm of Hg , with RA mean of 10. Pulmonic Valve There is no pulmonic valvular stenosis. There is a trace amount of pulmonic regurgitation. Great Vessels The aortic root is normal size. Effusions There is no pericardial effusion. : ROSETTE OLIVER > Rosette Oliver
[2017-12-15] MEDS ORDERED: FUROSEMIDE INJ/PF 20 MG/2 ML SDV IV SCH (18:00)
--- NOTE | 2017-12-15 18:30 | EKG REPORT ---
SEVERITY:- ABNORMAL ECG - ATRIAL FLUTTER FIBRILLATION CONSIDER POSTERIOR INFARCT MINIMAL ST DEPRESSION, DIFFUSE LEADS : Confirmed by: Suri Wade 15-Dec-2017 18:29:33
[2017-12-15] MEDS: LATANOPROST 0.005% OPH SOLN 2.5 ML OU SCH (19:31)
[2017-12-15] MEDS: DILTIAZEM HCL/D5W 125 MG/125 ML RTUINJ IV PRN (19:33)
[2017-12-15] MEDS ORDERED: LORAZEPAM INJ 2 MG/1 ML VIAL ONE (21:31)
[2017-12-15] MEDS ORDERED: LORAZEPAM INJ 2 MG/1 ML VIAL IV SCH (22:00)
[2017-12-15] MEDS ORDERED: LEVOFLOXACIN 500 MG/D5W RTU 500 MG/100 ML RTUPB IV ONE (23:00)
--- NOTE | 2017-12-15 23:14 | CONSULTATION REPORT E ---
Consultation Report NAME: BENJAMIN PRAJAPATI : 1930 AGE: 87Y DATE: 12/15/2017 606 A TO: ANGÉLICA OLIVER M.D. FROM: CARLO MARTIN M.D. Requesting Physician Note, 45 minutes spent on this patient, with more than 50% of the time spent on direct patient care. Note that the patient is demented and cannot give a history. History obtained from the patient's son, who has the healthcare power of criminal attorney on the patient. HISTORY OF PRESENT ILLNESS: Patient is an 87-year-old female admitted on 12/12/2017 with a 3-day history of vomiting, nausea and abdominal pain. The patient, on the 12 of December, underwent surgery for a mechanical small bowel obstruction, secondary to adhesions, and had an exploratory laparotomy and lysis of adhesions. The patient subsequently was doing well and was left on the ventilator. She had a brief run of atrial fibrillation, which converted to sinus rhythm after the patient was given some intravenous Cardizem 2 days ago; that is, on the . Subsequently today, the patient has gone back into atrial fibrillation with ventricular response being 119 beats per minute. The patient appears to be comfortable, although the patient is presently confused. The patient does not seem to be in any acute distress. Her blood pressure is on the lower side. As per the patient's son, the patient has no past history of atrial fibrillation, except for this brief episode 2 days ago. PAST MEDICAL HISTORY: Negative for any history of coronary artery disease, hypertension, diabetes mellitus, asthma, COPD, sleep apnea or congestive heart failure or cardiac arrhythmia. PAST SURGICAL HISTORY: The present surgery that she had on the , which is exploratory laparotomy and lysis of adhesions for releasing the small bowel obstruction. SOCIAL HISTORY: The patient has never smoked. There is no history of ETOH abuse. FAMILY HISTORY: Positive for patient's father dying of an MT and mother had dementia. ALLERGIES: The patient has no known allergies. MEDICATIONS: Include: 1. Cardizem drip at 10 mg/hr. 2. Tylenol *------* mg per rectally q.4 hours p.r.n. 3. Brimonidine tartrate 1 drop, right eye, q.12 hours. 4. Lovenox 30 mg subcutaneously b.i.d. 5. Pepcid 20 mg IV at bedtime. 6. Lasix 40 mg IV push x1. 7. Normal saline at 150 mL/hr. 8. Xalatan 1 drop both eyes q. p.m. 9. Xopenex 0.63 nebulizer treatment q.8 hours. 10. Lorazepam 2 mg IV x1. 11. Lorazepam 0.5 mg IV at bedtime. 12. Morphine sulfate 0.5 mg IV q.4 hours p.r.n. REVIEW OF SYSTEMS: CONSTITUTIONAL: As per the patient's son, there is no history of fever, chills or rigors. NEUROLOGIC: There are no headaches or dizziness. EYES: No history of amblyopia or diplopia. She has a history of glaucoma and is on drops for that. EARS: No history of hearing loss. No history of tinnitus. No recurrent ear infections. NOSE: No history of nosebleeds. No history of hay fever. MOUTH: No history of ulcers in the mouth or bleeding from the gums. THROAT: No odynophagia or dysphagia. SKIN: No skin rashes. No petechiae or ecchymosis. No skin cancer. No pruritus. No yellowish discoloration of the skin. NECK: No symptoms of C-spine arthritis. No goiter. LUNGS: No history of asthma or COPD. No history of cough or sputum production. The patient's chest x-ray today shows moderate cardiomegaly. No congestive heart failure. Left lower lobe azygos disease. Atelectasis with pneumonia. This is new compared to 12/14/2017. It seems to be a consolidation in the left retrocardiac area. No history of sleep apnea. No history of wheezing. No history of cough with sputum production. No pleuritic chest pain. No hemoptysis. No history of pulmonary embolism. CARDIAC: No history of hypertension. No history of coronary artery disease. No anginal symptoms. No chest pain. No history of syncope. No history of PND, orthopnea or leg edema. No history of congestive heart failure. MUSCULOSKELETAL: No history of arthritis or cardiovascular disease. RENAL: No history of chronic kidney disease. No symptoms of UTI. No history of hematuria or dysuria. ENDOCRINE: No history of diabetes mellitus. No history of thyroid disease. No history of polydipsia or polyuria. GI: History of abdominal pain, as mentioned earlier, with patient having small bowel mechanical obstruction status post surgery in the form of exploratory laparotomy and lysis of adhesions. There is no prior history of giardia or GI bleed. No history of jaundice. No history of cirrhosis. No history of fatty food intolerance. IS SUPPORT ANALYST: No history of TIA or CVA. No history of headaches, migraines or seizures. The patient has significant dementia. As per the son, the patient, prior to her having abdominal pain, was walking around and eating well, and had a good appetite. PSYCHIATRIC: Patient has dementia without any behavioral changes. There is no agitation. HEMATOLOGIC: No history of bleeding diastasis. No history of clotting disorders. PHYSICAL EXAMINATION: VITAL SIGNS: Patient's temperature is 99.4 degrees Fahrenheit, pulse is 108 beats per minute, which is atrial fibrillation. Blood pressure initially was 115/57; subsequently went to a heart rate of 85 beats per minute with atrial fibrillation and blood pressure of 99/51. Her respirations are 14 per minute. O2 sats are 94% on 2 liters nasal cannula. HEENT: Head is atraumatic, normocephalic. Eyes: Pupils are equal, round, regular, reactive to light and accommodation. Extraocular movements are normal. Ears: Tympanic membranes are intact. External auditory canals are clear. Nose: There is no deviated nasal septum. There is no inflammation of nasal mucous membranes. Mouth: Mucous membranes of the mouth are moist. Tongue is moist. There are no ulcerations. There is no bleeding from the gums. Throat: There is no redness of the oropharynx. There are no exudates. SKIN: There are no skin rashes. There is no petechia or ecchymosis. There are no skin lesions. NECK: Supple. There is no JVD. Carotids are equal. There is no bruit. There is no goiter. There is no lymphadenopathy. There is no accessory muscle respiration use. LUNGS: There are dry crackles at the left base and egophony at the left base suggestive of lower lobe consolidation/pneumonia. There is no chest wall tenderness. CARDIAC: S1, S2 are heard. S1 is of variable intensity. There is no S3 gallop. There is no S4 gallop. There is a systolic murmur at left sternal border, at the apex. There is no rub. ABDOMEN: Soft, nontender. There is no hepatosplenomegaly. Bowel sounds are well-heard. There are no tender areas or masses. The dressing is dry. Note that the patient has not had a bowel movement as yet. She started clear liquids yesterday, without nausea or vomiting. EXTREMITIES: Femorals are diminished. There are no femoral bruits. Leg pulses are diminished. There is no pedal edema. There is no cyanosis or clubbing. There is no cellulitis or DVT. There is no calf tenderness. There is no pedal edema. IS SUPPORT ANALYST: The patient is conscious, awake, but pleasantly confused, but moves all 4 extremities. PSYCHIATRIC: The patient does not appear to be agitated. DIAGNOSTIC STUDIES: As mentioned earlier, the patient's chest x-ray shows moderate cardiomegaly, with evidence of pneumonia in the left retrocardiac area. The patient's EKG shows atrial fibrillation, nonspecific ST depression, inferior leads. The patient's echocardiogram shows left ventricle is normal size. Left ventricular wall thickness is normal. There is no LVH. LV ejection fraction is 16%. There is no wall motion abnormality. Doppler measurements suggest normal left ventricular diastolic function. Right atrium is normal. Left atrial size is normal. There is no evidence of mitral reflux. There is a trace amount of mitral regurgitation. There is no mitral valve stenosis. There is no aortic valve stenosis. There is no aortic regurgitation. There is no tricuspid regurgitation. There is mild to moderate amount of tricuspid regurgitation. There is moderate pulmonary hypertension by echo. Right ventricular systolic pressure is 50 mmHg, with an artery mean of 10. There is no pericardial effusion. The patient's white count is 10,500, hemoglobin is 9.6, hematocrit is 28.4 and the platelet count is 172,000. The patient's sodium is 142.5, potassium is low at 3.2, chloride is 113, CO2 is 24. The patient's BUN is 16, creatinine 0.73. GFR is greater than 60. Glucose is 95. Her calcium is 7.8 and her magnesium is 2.2. The patient's liver function tests showed an elevated AST yesterday of 37. The rest of the liver function tests were normal. The patient's albumin is low at 2.5. Total protein is 4.4. Troponin I is negative x4. The patient's anti-proBNP is 4580. IMPRESSION: 1. Atrial fibrillation with somewhat fast ventricular response. Note that the patient's blood pressure is coming down. We will give 1 dose of Digoxin 0.125 mg IV and Cardizem 5 mg bolus x1, and decrease the patient's Cardizem drip to 5 mg per hour. Note that the patient's age and the patient's frail build and dementia make the patient a high risk for chronic anticoagulation therapy. This has been discussed in detail with the son; hence, will not use chronic anticoagulation therapy. 2. Hypokalemia. The patient did get 2 x 20 mEq potassium riders intravenously. 3. Status post surgery for small bowel obstruction. 4. Left lower lobe/retrocardiac pneumonia. 5. Severe dementia. 6. Glaucoma. 7. Moderate pulmonary hypertension. RECOMMENDATIONS: Would replete the patient's potassium, as has been done. Continue the patient on IV Cardizem and use Digoxin periodically. Continue hydration. Would not use Lasix, since anti-proBNP can be elevated in pneumonia and pulmonary hypertension. Would recommend starting the patient on antibiotic, in view of the patient's pneumonia. Note that the patient was on ceftriaxone until yesterday, which has been discontinued. Continue respiratory treatments. Continue glaucoma medication. Note, 45 minutes spent on this patient, with more than 50% of the time spent on direct patient care. Discussed the case with the patient's son and also with the attending physician on the case. Patient's medications were reviewed and medication changes made, as mentioned earlier. Echo findings have been discussed with the patient's son. Dr. Wade will follow the patient tomorrow. Note, medical decision-making is of high complexity. Thanking you. DICTATING PHYSICIAN: ANGÉLICA OLIVER M.D. [id number] [facility]#: [id number] ID: [id number] JOB#: [id number] ACCT: [id number] cc:ANGÉLICA OLIVER M.D. >
[2017-12-16] MEDS: LEVALBUTEROL HCL NEB 0.63 MG/3 ML AMPUL NEB SCH ×3 (00:22→16:25)
[2017-12-16] MEDS ORDERED: LORAZEPAM INJ 2 MG/1 ML VIAL IV ONE (01:30)
[2017-12-16] MEDS: NORMAL SALINE 1000 ML 1,000 ML IV PRN ×2 (03:26→11:30)
[2017-12-16 04:11] LABS: HEMATOCRIT 30.1 % (36.0-47.0); HEMOGLOBIN 10.1 g/dL (12.0-15.5); MEAN CORPUSCULAR HEMOGLOBIN 32.5 pg (27.0-33.4); MEAN CORPUSCULAR HGB CONC 33.7 g/dL (32.0-36.0); MEAN CORPUSCULAR VOLUME 96 fl (80-97); PLATELET COUNT 180 10^3/uL (150-450); RED BLOOD COUNT 3.13 10^6/uL (3.72-5.28); RED CELL DISTRIBUTION WIDTH 13.5 % (11.5-14.0); WHITE BLOOD COUNT 10.9 10^3/uL (4.0-10.5)
[2017-12-16 04:30] LABS: ALANINE AMINOTRANSFERASE 36 U/L (9-52); ALBUMIN 2.6 g/dL (3.5-5.0); ALKALINE PHOSPHATASE 57 U/L (38-126); ANION GAP 8 (5-19); ASPARTATE AMINO TRANSFERASE 30 U/L (14-36); BILIRUBIN,DIRECT 0.3 mg/dL (0.0-0.4); BILIRUBIN,TOTAL 0.4 mg/dL (0.2-1.3); BLOOD UREA NITROGEN 13 mg/dL (7-20); CALCIUM 7.9 mg/dL (8.4-10.2); CARBON DIOXIDE 21 mmol/L (22-30); CHLORIDE 114 mmol/L (98-107); GLUCOSE 83 mg/dL (75-110); PHOSPHORUS 1.6 mg/dL (2.5-4.5); POTASSIUM 3.5 mmol/L (3.6-5.0); TOTAL PROTEIN 4.5 g/dL (6.3-8.2)
[2017-12-16 05:40] LABS: ABSOLUTE LYMPHOCYTES# (MANUAL) 0.4 10^3/uL (0.5-4.7); ABSOLUTE MONOCYTES # (MANUAL) 0.1 10^3/uL (0.1-1.4); ABSOLUTE NEUTROPHILS# (MANUAL) 10.2 10^3/uL (1.7-8.2); BAND NEUTROPHILS % (MANUAL) 6 % (3-5); BASOPHILS % (MANUAL) 0 % (0-2); EOSINOPHILS % (MANUAL) 1 % (0-6); LYMPHOCYTES % (MANUAL) 4 % (13-45); MONOCYTES % (MANUAL) 1 % (3-13); TOTAL CELLS COUNTED 100
[2017-12-16 05:42] LABS: PLATELET COMMENT ADEQUATE; SCHISTOCYTES 1+; TEAR DROP CELLS SLIGHT; TOXIC GRANULATION 1+
--- NOTE | 2017-12-16 09:07 | PDOC PROGRESS REPORT ---
Subjective Progress Note for:: 12/16/17 Subjective:: Confused, alert, not swallowing, gurgling noise while breathing Reason For Visit: SMALL BOWEL OBSTRUCTION Physical Exam Vital Signs: Temp Pulse Resp BP Pulse Ox 98.2 F 92 18 128/75 H 94 12/16/17 08:00 12/16/17 08:23 12/16/17 08:00 12/16/17 08:00 12/16/17 08:00 Intake & Output 12/15/17 12/16/17 12/17/17 06:59 06:59 06:59 Intake Total 1293 2979 Output Total 820 1290 225 Balance 473 1689 -225 Weight 62.4 kg 62.4 kg General appearance: PRESENT: mild distress, thin Respiratory exam: PRESENT: clear to auscultation sacha Cardiovascular exam: PRESENT: RRR GI/Abdominal exam: PRESENT: normal bowel sounds, soft, other - wound c/d/i Results Laboratory Results: 12/16/17 03:45 12/16/17 03:45 12/13/17 12/16/17 12/16/17 10:50 03:45 03:45 WBC 10.9 H RBC 3.13 L Hgb 10.1 L Hct 30.1 L MCV 96 MCH 32.5 MCHC 33.7 RDW 13.5 Plt Count 180 Seg Neutrophils % Not Reportable Lymphocytes % Not Reportable Monocytes % Not Reportable Eosinophils % Not Reportable Basophils % Not Reportable Absolute Neutrophils Not Reportable Absolute Lymphocytes Not Reportable Absolute Monocytes Not Reportable Absolute Eosinophils Not Reportable Absolute Basophils Not Reportable Sodium Cancelled 143.0 Potassium Cancelled 3.5 L Chloride Cancelled 114 H Carbon Dioxide Cancelled 21 L Anion Gap Cancelled 8 BUN Cancelled 13 Creatinine Cancelled 0.62 Est GFR ( Amer) Cancelled > 60 Est GFR (Non-Af Amer) Cancelled > 60 Glucose Cancelled 83 Calcium Cancelled 7.9 L Phosphorus 1.6 L Magnesium 2.0 Total Bilirubin Cancelled 0.4 AST Cancelled 30 ALT Cancelled 36 Alkaline Phosphatase Cancelled 57 Total Protein Cancelled 4.5 L Albumin Cancelled 2.6 L Triglycerides Cancelled Cholesterol Cancelled LDL Cholesterol Direct Cancelled VLDL Cholesterol Cancelled HDL Cholesterol Cancelled 12/13/17 12/13/17 12/14/17 12:33 18:36 00:30 Troponin I 0.021 0.018 0.020 NT-Pro-B Natriuret Pep 12/15/17 12/16/17 06:18 03:45 Troponin I NT-Pro-B Natriuret Pep 4580 H 4980 H Impressions: Abdomen/Pelvis CT 12/12/17 00:00 IMPRESSION: CT FINDINGS COMPATIBLE WITH HIGH GRADE DISTAL SMALL BOWEL OBSTRUCTION WITH TRANSITION POINT IN THE RIGHT LOWER QUADRANT. ADDITIONAL NOTE MADE OF INFLAMMATION INVOLVING THE TERMINAL ILEUM SUSPICIOUS FOR INFECTIOUS OR INFLAMMATORY BOWEL DISEASE. CORRELATE WITH PATIENT'S CLINICAL HISTORY. SMALL LEFT PLEURAL EFFUSION IN NODULAR INFLAMMATORY CHANGE INVOLVING THE OMENTUM PRESUMABLY REACTIVE TO OBSTRUCTION. Chest X-Ray 12/15/17 06:00 IMPRESSION: Left retrocardiac consolidation atelectasis versus pneumonia Assessment & Plan - Diagnosis (1) Small bowel obstruction Is this a current diagnosis for this admission?: Yes - Plan Summary Plan Summary: A/ POD #4 s/p exploratory laparotomy / SHANKAR VSS, AF Heart rate under good control with Cardizem drip Alert, but disoriented and confused (pain meds and narcotics?) Patient not swallowing with gurgling noise while breathing Good urine output No bowel function present, despite good bowel sounds P/ Ok to floor Up in chair Sitter Keep patient off narcotics Tylenol only for pain Dulcolax suppository Speech and Swallow therapist to evaluate patient Decrease IVF
[2017-12-16] MEDS ORDERED: DIPHENHYDRAMINE HCL 50 MG/ML VIAL IV PRN (09:17)
[2017-12-16] MEDS: BRIMONIDINE TARTRATE 0.2% OPH SOLN 5 ML OD SCH ×2 (09:18→22:44)
[2017-12-16] MEDS: ENOXAPARIN SODIUM INJ 30 MG/0.3 ML DISP.SYRIN SUBCUT SCH (09:21)
[2017-12-16] MEDS: BISACODYL 10 MG SUPP.RECT PR SCH ×2 (10:09→17:29)
[2017-12-16] MEDS: POTASSI CL 20 MEQ/50 ML RIDER 20 MEQ/50 ML RTUPB IV SCH ×2 (10:09→11:36)
--- NOTE | 2017-12-16 11:12 | PDOC PROGRESS REPORT ---
Subjective Progress Note for:: 12/16/17 Subjective:: Patient seems to be doing better with gradual improvement. Pt is denying any chest arm or neck discomfort. Patient denying any PND, orthopnea. Patient denied any sustained palpitations, dizziness, syncope, near syncope. Patient denying any fever chills. Patient denying any other significant discomfort. Patient is maintaining atrial fibrillation heart rates somewhat on the high side. Patient noted to tolerate pured diet. Review of systems: Rest review of systems negative. Medications: Medications have been reviewed. Reason For Visit: SMALL BOWEL OBSTRUCTION Physical Exam Vital Signs: Temp Pulse Resp BP Pulse Ox 98.2 F 102 H 18 128/75 H 97 12/16/17 08:00 12/16/17 08:39 12/16/17 08:39 12/16/17 08:00 12/16/17 08:39 Intake & Output 12/15/17 12/16/17 12/17/17 06:59 06:59 06:59 Intake Total 1293 2979 Output Total 820 1290 225 Balance 473 1689 -225 Weight 62.4 kg 62.4 kg Exam: GENERAL: well-nourished and in no acute distress. Patient is alert but not oriented to place time or person. HEAD: Atraumatic, normocephalic. EYES: Pupils equal round and reactive to light, extraocular movements intact, sclera anicteric, conjunctiva are normal. ENT: TMs normal, nares patent, oropharynx clear without exudates. Moist mucous membranes. No oral ulcerations or bleeding gums noted NECK: supple without lymphadenopathy or JVD. Trachea is central. No cervical or axillary lymphadenopathy noted. Carotids are 2+ LUNGS: Breath sounds bibasilar fine crackles at bases. No significant dullness noted. CHEST: Palpation of chest wall shows no significant chest wall tenderness. 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 ABDOMEN: Soft, no significant tenderness appreciated, normoactive bowel sounds. No guarding, no rebound. No rigidity noted . No masses appreciated. EXTREMITIES: Pedal pulses are 1-2+, no calf tenderness noted, Trace + pedal edema noted. No clubbing or cyanosis. NEUROLOGICAL: Patient is alert but is not able to participate in neurological exam because of patient's current mental status PSYCH: Patient cannot participate in a neurologic and psych exam because of the patient's current mental status SKIN: No significant ecchymosis, rash, ulcerations or signs of pruritus noted. MUSCULOSKELETAL EXAM: No significant joint swelling noted. Results Laboratory Results: 12/16/17 03:45 12/16/17 03:45 12/13/17 12/16/17 12/16/17 10:50 03:45 03:45 WBC 10.9 H RBC 3.13 L Hgb 10.1 L Hct 30.1 L MCV 96 MCH 32.5 MCHC 33.7 RDW 13.5 Plt Count 180 Seg Neutrophils % Not Reportable Lymphocytes % Not Reportable Monocytes % Not Reportable Eosinophils % Not Reportable Basophils % Not Reportable Absolute Neutrophils Not Reportable Absolute Lymphocytes Not Reportable Absolute Monocytes Not Reportable Absolute Eosinophils Not Reportable Absolute Basophils Not Reportable Sodium Cancelled 143.0 Potassium Cancelled 3.5 L Chloride Cancelled 114 H Carbon Dioxide Cancelled 21 L Anion Gap Cancelled 8 BUN Cancelled 13 Creatinine Cancelled 0.62 Est GFR ( Amer) Cancelled > 60 Est GFR (Non-Af Amer) Cancelled > 60 Glucose Cancelled 83 Calcium Cancelled 7.9 L Phosphorus 1.6 L Magnesium 2.0 Total Bilirubin Cancelled 0.4 AST Cancelled 30 ALT Cancelled 36 Alkaline Phosphatase Cancelled 57 Total Protein Cancelled 4.5 L Albumin Cancelled 2.6 L Triglycerides Cancelled Cholesterol Cancelled LDL Cholesterol Direct Cancelled VLDL Cholesterol Cancelled HDL Cholesterol Cancelled 12/13/17 12/13/17 12/14/17 12:33 18:36 00:30 Troponin I 0.021 0.018 0.020 NT-Pro-B Natriuret Pep 12/15/17 12/16/17 06:18 03:45 Troponin I NT-Pro-B Natriuret Pep 4580 H 4980 H EKG Comments: Showed atrial fibrillation with controlled ventricular response. Impressions: Abdomen/Pelvis CT 12/12/17 00:00 IMPRESSION: CT FINDINGS COMPATIBLE WITH HIGH GRADE DISTAL SMALL BOWEL OBSTRUCTION WITH TRANSITION POINT IN THE RIGHT LOWER QUADRANT. ADDITIONAL NOTE MADE OF INFLAMMATION INVOLVING THE TERMINAL ILEUM SUSPICIOUS FOR INFECTIOUS OR INFLAMMATORY BOWEL DISEASE. CORRELATE WITH PATIENT'S CLINICAL HISTORY. SMALL LEFT PLEURAL EFFUSION IN NODULAR INFLAMMATORY CHANGE INVOLVING THE OMENTUM PRESUMABLY REACTIVE TO OBSTRUCTION. Chest X-Ray 12/15/17 06:00 IMPRESSION: Left retrocardiac consolidation atelectasis versus pneumonia Assessment & Plan - Diagnosis (1) Atrial fibrillation Qualifiers: Atrial fibrillation type: persistent Qualified Code(s): I48.1 - Persistent atrial fibrillation Is this a current diagnosis for this admission?: Yes (2) Respiratory failure Is this a current diagnosis for this admission?: Yes (3) Small bowel obstruction Is this a current diagnosis for this admission?: Yes (4) Dementia Qualifiers: Dementia type: unspecified type Dementia behavioral disturbance: without behavioral disturbance Qualified Code(s): F03.90 - Unspecified dementia without behavioral disturbance Is this a current diagnosis for this admission?: Yes (5) Hypokalemia Is this a current diagnosis for this admission?: Yes (6) Pneumonia Qualifiers: Pneumonia type: due to unspecified organism Lung location: unspecified part of lung Is this a current diagnosis for this admission?: Yes - Notes Notes: Atrial fibrillation with rapid ventricular response. Currently seems persistent. Currently on Cardizem drip. Will switch patient to p.o. Cardizem, 60 mg every 6. Parameters written for holding Cardizem. Respiratory failure: Patient has been extubated and maintaining her O2 sat. Continue oxygen saturation. Patient noted to have atelectasis versus pneumonia on yesterday's chest x-ray. Recommend pulmonary toilet and antibiotics as needed. Pneumonia: Continue antibiotic therapy. Hypokalemia: Potassium improved but still on the low side. Small bowel obstruction: Patient is status post surgical intervention currently stable. Dementia: Chronic. We will continue to follow patient expectantly. - Time Time with patient: Greater than 35 minutes - CODE STATUS was discussed, patient remains full code. Surrogate decision-maker unchanged. Multiple medical problems were addressed. More than 50% of the time spent coordinating care, discussing management plans with involved caregivers. Management plans discussed with involved personnels. Medical decision making was of moderate to high complexity, patient's has multiple comorbidities. Medications reviewed and adjusted accordingly: Yes
[2017-12-16] MEDS: DILTIAZEM HCL 60 MG TABLET PO SCH ×2 (11:30→17:29)
[2017-12-16] MEDS ORDERED: LORAZEPAM 0.5 MG TABLET PO PRN (13:50)
--- NOTE | 2017-12-16 14:31 | PDOC PROGRESS REPORT ---
Subjective Progress Note for:: 12/16/17 Subjective:: Patient is a 87-year-old female with a history of dementia and glaucoma who presented with a 3 day history of abdominal pain, obstipation and nausea and vomiting and was found to have a significant small bowel mechanical obstruction. Patient taken to the OR and is status post ex-exploratory laparotomy with lysis of adhesions and bowel resection. Patient was intubated and placed in ICU. Patient was extubated on December 14. Patient did develop A. fib with RVR was on Cardizem drip. Patient does have a history of dementia but is having some delirium with hallucinations. Patient is seeing worms in stating that they are crawling around because of food. Patient's son is at the bedside and stated that this is the first time this has ever happened. Patient normally takes Ativan as needed at home and an antidepressant which have been discontinued during this hospitalization. Reason For Visit: SMALL BOWEL OBSTRUCTION Physical Exam Vital Signs: Temp Pulse Resp BP Pulse Ox 98.2 F 103 H 21 H 123/66 100 12/16/17 08:00 12/16/17 10:00 12/16/17 13:20 12/16/17 13:20 12/16/17 13:20 Intake & Output 12/15/17 12/16/17 12/17/17 06:59 06:59 06:59 Intake Total 1293 2979 Output Total 820 1290 425 Balance 473 1689 -425 Weight 62.4 kg 62.4 kg General appearance: PRESENT: no acute distress, well-developed, well-nourished, other - Up in chair Head exam: PRESENT: normocephalic Eye exam: PRESENT: EOMI. ABSENT: scleral icterus Ear exam: PRESENT: normal external ear exam Mouth exam: PRESENT: moist Neck exam: ABSENT: carotid bruit, JVD, lymphadenopathy, thyromegaly Respiratory exam: PRESENT: clear to auscultation sacha. ABSENT: rales, rhonchi, wheezes Cardiovascular exam: PRESENT: RRR. ABSENT: diastolic murmur, rubs, systolic murmur Pulses: PRESENT: normal dorsalis pedis pul Vascular exam: PRESENT: normal capillary refill GI/Abdominal exam: PRESENT: normal bowel sounds, soft, other - Surgical dressing in place. ABSENT: distended, guarding, mass, organolmegaly, rebound, tenderness Rectal exam: PRESENT: deferred Extremities exam: PRESENT: full ROM. ABSENT: calf tenderness, clubbing, pedal edema Neurological exam: PRESENT: alert, awake, oriented to person, oriented to time, CN II-XII grossly intact, other. ABSENT: motor sensory deficit Psychiatric exam: PRESENT: appropriate affect, normal mood. ABSENT: homicidal ideation, suicidal ideation Focused psych exam: PRESENT: delusional Skin exam: PRESENT: dry, intact, warm. ABSENT: cyanosis, rash Results Laboratory Results: 12/16/17 03:45 12/16/17 03:45 12/16/17 12/16/17 03:45 03:45 WBC 10.9 H RBC 3.13 L Hgb 10.1 L Hct 30.1 L MCV 96 MCH 32.5 MCHC 33.7 RDW 13.5 Plt Count 180 Seg Neutrophils % Not Reportable Lymphocytes % Not Reportable Monocytes % Not Reportable Eosinophils % Not Reportable Basophils % Not Reportable Absolute Neutrophils Not Reportable Absolute Lymphocytes Not Reportable Absolute Monocytes Not Reportable Absolute Eosinophils Not Reportable Absolute Basophils Not Reportable Sodium 143.0 Potassium 3.5 L Chloride 114 H Carbon Dioxide 21 L Anion Gap 8 BUN 13 Creatinine 0.62 Est GFR ( Amer) > 60 Est GFR (Non-Af Amer) > 60 Glucose 83 Calcium 7.9 L Phosphorus 1.6 L Magnesium 2.0 Total Bilirubin 0.4 AST 30 ALT 36 Alkaline Phosphatase 57 Total Protein 4.5 L Albumin 2.6 L 12/13/17 12/13/17 12/14/17 12:33 18:36 00:30 Troponin I 0.021 0.018 0.020 NT-Pro-B Natriuret Pep 12/15/17 12/16/17 06:18 03:45 Troponin I NT-Pro-B Natriuret Pep 4580 H 4980 H Impressions: Abdomen/Pelvis CT 12/12/17 00:00 IMPRESSION: CT FINDINGS COMPATIBLE WITH HIGH GRADE DISTAL SMALL BOWEL OBSTRUCTION WITH TRANSITION POINT IN THE RIGHT LOWER QUADRANT. ADDITIONAL NOTE MADE OF INFLAMMATION INVOLVING THE TERMINAL ILEUM SUSPICIOUS FOR INFECTIOUS OR INFLAMMATORY BOWEL DISEASE. CORRELATE WITH PATIENT'S CLINICAL HISTORY. SMALL LEFT PLEURAL EFFUSION IN NODULAR INFLAMMATORY CHANGE INVOLVING THE OMENTUM PRESUMABLY REACTIVE TO OBSTRUCTION. Chest X-Ray 12/15/17 06:00 IMPRESSION: Left retrocardiac consolidation atelectasis versus pneumonia Assessment & Plan - Diagnosis (1) UTI (urinary tract infection) Is this a current diagnosis for this admission?: Yes Plan: No E. coli UTI. Patient was on Levaquin however due to her advanced age and dementia thought it was best to switch her to something like ceftriaxone. (2) Ambulatory dysfunction Is this a current diagnosis for this admission?: Yes Plan: PT OT consulted plan is for discharge to [facility] for rehabilitation. (3) Atrial fibrillation Qualifiers: Atrial fibrillation type: persistent Qualified Code(s): I48.1 - Persistent atrial fibrillation Is this a current diagnosis for this admission?: Yes Plan: Appears to be new onset. Cardiology consulted. Patient on Cardizem drip. Heart rate still in the high 90s to low 100s. Patient started on oral diltiazem 60 mg every 6 by cardiology. (4) Dementia Qualifiers: Dementia type: unspecified type Dementia behavioral disturbance: without behavioral disturbance Qualified Code(s): F03.90 - Unspecified dementia without behavioral disturbance Is this a current diagnosis for this admission?: Yes Plan: Patient now having some delirium along with her dementia. Patient restarted on her home Namenda. Patient normally takes benzos and this has been discontinued however concerned that patient may be having some withdrawal will restart patient on her Ativan. Per patient's son patient takes this medication scheduled. Also will restart her Zoloft. (5) Glaucoma Qualifiers: Open angle glaucoma type: unspecified type Laterality: unspecified laterality Glaucoma stage: stage unspecified Is this a current diagnosis for this admission?: Yes Plan: Continue her medicated eyedrops. (6) Respiratory failure Is this a current diagnosis for this admission?: Yes Plan: She was intubated during the procedure and is currently extubated and doing well. (7) Small bowel obstruction Is this a current diagnosis for this admission?: Yes Plan: Patient is status post exploratory lap with lysis of adhesions and resection of bowel. Patient is currently doing well. Patient did eat a little today. Treatment per surgery. (8) Volume overload Qualifiers: Hypervolemia type: unspecified Qualified Code(s): E87.70 - Fluid overload, unspecified Is this a current diagnosis for this admission?: Yes Plan: She became volume overloaded after she is receiving IV fluids. The infusion was decreased and patient was diuresed with IV Lasix. Patient no longer sounds congested. - Time Time Spent with patient: 15-24 minutes Anticipated discharge: SNF - Inpatient Certification Medical Necessity: Need for IV Antibiotics, Other - Decision to discharge patient is per surgery's recommendations as they are the primary service.
[2017-12-16] MEDS ORDERED: DIGOXIN INJ 0.5 MG/2 ML AMPULE IV ONE (17:00)
[2017-12-16] MEDS: LATANOPROST 0.005% OPH SOLN 2.5 ML OU SCH (17:31)
[2017-12-16] MEDS ORDERED: (PENDING PHARMACY ID) (Brimonidine Tartrate [Alphagan P] 1 DROP) OD SCH (18:00)
[2017-12-16] MEDS ORDERED: LEVOFLOXACIN 500 MG/D5W RTU 500 MG/100 ML RTUPB IV SCH (22:00)
[2017-12-16] MEDS: LORAZEPAM 0.5 MG TABLET PO SCH (22:40)
[2017-12-16] MEDS: FAMOTIDINE INJ/PF 20 MG/2 ML SDV IV SCH (22:40)
[2017-12-17] MEDS: LEVALBUTEROL HCL NEB 0.63 MG/3 ML AMPUL NEB SCH ×3 (00:07→15:56)
[2017-12-17] MEDS: DILTIAZEM HCL 60 MG TABLET PO SCH ×4 (00:50→17:18)
[2017-12-17 06:53] LABS: HEMOGLOBIN 10.8 g/dL (12.0-15.5); MEAN CORPUSCULAR HEMOGLOBIN 32.4 pg (27.0-33.4); MEAN CORPUSCULAR HGB CONC 33.8 g/dL (32.0-36.0); MEAN CORPUSCULAR VOLUME 96 fl (80-97); PLATELET COUNT 244 10^3/uL (150-450); RED BLOOD COUNT 3.34 10^6/uL (3.72-5.28); WHITE BLOOD COUNT 11.1 10^3/uL (4.0-10.5)
[2017-12-17 07:19] LABS: ANION GAP 7 (5-19); BLOOD UREA NITROGEN 11 mg/dL (7-20); CALCIUM 8.1 mg/dL (8.4-10.2); CARBON DIOXIDE 22 mmol/L (22-30); CHLORIDE 114 mmol/L (98-107); GLUCOSE 104 mg/dL (75-110); POTASSIUM 3.7 mmol/L (3.6-5.0); SODIUM 142.6 mmol/L (137-145)
[2017-12-17 07:37] LABS: ABSOLUTE LYMPHOCYTES# (MANUAL) 1.2 10^3/uL (0.5-4.7); ABSOLUTE MONOCYTES # (MANUAL) 1.1 10^3/uL (0.1-1.4); ABSOLUTE NEUTROPHILS# (MANUAL) 8.3 10^3/uL (1.7-8.2); BAND NEUTROPHILS % (MANUAL) 4 % (3-5); BASOPHILS % (MANUAL) 0 % (0-2); EOSINOPHILS % (MANUAL) 4 % (0-6); LYMPHOCYTES % (MANUAL) 10 % (13-45); METAMYELOCYTES % (MANUAL) 2 % (0); MONOCYTES % (MANUAL) 10 % (3-13); OVALOCYTES 1+; PLATELET COMMENT ADEQUATE; POIKILOCYTOSIS 1+; SEGMENTED NEUTROPHILS % (MAN) 69 % (42-78); TOTAL CELLS COUNTED 100; TOXIC GRANULATION SLIGHT
[2017-12-17] MEDS: BRIMONIDINE TARTRATE 0.2% OPH SOLN 5 ML OD SCH ×2 (09:40→22:07)
[2017-12-17] MEDS: MEMANTINE HCL 10 MG TABLET PO SCH (09:41)
[2017-12-17] MEDS: LORAZEPAM 0.5 MG TABLET PO SCH (09:41)
[2017-12-17] MEDS: NORMAL SALINE 1000 ML 1,000 ML IV PRN (09:42)
[2017-12-17] MEDS: ENOXAPARIN SODIUM INJ 30 MG/0.3 ML DISP.SYRIN SUBCUT SCH (09:42)
[2017-12-17] MEDS: BISACODYL 10 MG SUPP.RECT PR SCH ×2 (09:49→17:18)
[2017-12-17 09:52] LABS: SEGMENTED NEUTROPHILS % (MAN) 88 % (42-78)
[2017-12-17 09:57] LABS: PATH REVIEW PATHOLOGIST REVIEWED
[2017-12-17] MEDS ORDERED: CEFTRIAXONE 1 GM/D5W RTU 1 GM/50 ML RTUPB IV SCH (10:00)
[2017-12-17] MEDS ORDERED: SERTRALINE HCL 50 MG TABLET PO SCH (10:00)
[2017-12-17] MEDS ORDERED: CEFTRIAXONE SODIUM 1,000 MG in DEXTROSE 5%-WATER 50 ML IV SCH (10:00)
[2017-12-17] MEDS ORDERED: ACETAMINOPHEN 650 MG SUPP.RECT PR PRN (13:32)
--- NOTE | 2017-12-17 13:32 | PDOC PROGRESS REPORT ---
Subjective Progress Note for:: 12/17/17 Reason For Visit: SMALL BOWEL OBSTRUCTION Physical Exam Vital Signs: Temp Pulse Resp BP Pulse Ox 97.5 F 91 20 111/53 L 97 12/17/17 12:00 12/17/17 12:00 12/17/17 12:00 12/17/17 12:00 12/17/17 12:00 Intake & Output 12/16/17 12/17/17 12/18/17 06:59 06:59 06:59 Intake Total 2979 1550 50 Output Total 1290 985 300 Balance 1689 565 -250 Weight 62.4 kg 64 kg General appearance: PRESENT: other - sleepy Respiratory exam: PRESENT: clear to auscultation sacha Cardiovascular exam: PRESENT: RRR GI/Abdominal exam: PRESENT: soft, other - wound c/d/i Results Laboratory Results: 12/17/17 06:17 12/17/17 05:17 12/17/17 12/17/17 05:17 06:17 WBC 11.1 H RBC 3.34 L Hgb 10.8 L Hct 32.0 L MCV 96 MCH 32.4 MCHC 33.8 RDW 13.0 Plt Count 244 Seg Neutrophils % Not Reportable Lymphocytes % Not Reportable Monocytes % Not Reportable Eosinophils % Not Reportable Basophils % Not Reportable Absolute Neutrophils Not Reportable Absolute Lymphocytes Not Reportable Absolute Monocytes Not Reportable Absolute Eosinophils Not Reportable Absolute Basophils Not Reportable Sodium 142.6 Potassium 3.7 Chloride 114 H Carbon Dioxide 22 Anion Gap 7 BUN 11 Creatinine 0.65 Est GFR ( Amer) > 60 Est GFR (Non-Af Amer) > 60 Glucose 104 Calcium 8.1 L 12/13/17 12/13/17 12/14/17 12:33 18:36 00:30 Troponin I 0.021 0.018 0.020 NT-Pro-B Natriuret Pep 12/15/17 12/16/17 06:18 03:45 Troponin I NT-Pro-B Natriuret Pep 4580 H 4980 H Impressions: Abdomen/Pelvis CT 12/12/17 00:00 IMPRESSION: CT FINDINGS COMPATIBLE WITH HIGH GRADE DISTAL SMALL BOWEL OBSTRUCTION WITH TRANSITION POINT IN THE RIGHT LOWER QUADRANT. ADDITIONAL NOTE MADE OF INFLAMMATION INVOLVING THE TERMINAL ILEUM SUSPICIOUS FOR INFECTIOUS OR INFLAMMATORY BOWEL DISEASE. CORRELATE WITH PATIENT'S CLINICAL HISTORY. SMALL LEFT PLEURAL EFFUSION IN NODULAR INFLAMMATORY CHANGE INVOLVING THE OMENTUM PRESUMABLY REACTIVE TO OBSTRUCTION. Chest X-Ray 12/15/17 06:00 IMPRESSION: Left retrocardiac consolidation atelectasis versus pneumonia Assessment & Plan - Diagnosis (1) Small bowel obstruction Is this a current diagnosis for this admission?: Yes - Plan Summary Plan Summary: A/ Sleepy POD #5 after laparotomy SHANKAR VSS, AF Bowel function returned Blood work WNL P/ Stop Ativan encourage oral intake of solids ad fluids Discharge planning involved for post- discharge placement decrease IVF
[2017-12-17] MEDS ORDERED: NORMAL SALINE 1000 ML 1,000 ML IV PRN (13:36)
[2017-12-17] MEDS: LATANOPROST 0.005% OPH SOLN 2.5 ML OU SCH (17:17)
--- NOTE | 2017-12-17 19:16 | PDOC PROGRESS REPORT ---
Subjective Progress Note for:: 12/17/17 Subjective:: Patient's at bedside. Patient noted to be in mild respiratory distress but maintaining good O2 sat. Pt is denying any chest arm or neck discomfort. Patient denying any PND, orthopnea. Patient denied any sustained palpitations, dizziness, syncope, near syncope. Patient denying any fever chills. Patient denying any other significant discomfort. Patient is maintaining atrial fibrillation heart rates somewhat on the high side , but reasonably well-controlled. Review of systems: Rest review of systems negative. Medications: Medications have been reviewed. Reason For Visit: SMALL BOWEL OBSTRUCTION Physical Exam Vital Signs: Temp Pulse Resp BP Pulse Ox 98.4 F 91 22 H 104/51 L 91 L 12/17/17 15:14 12/17/17 15:56 12/17/17 15:56 12/17/17 15:14 12/17/17 15:56 Intake & Output 12/16/17 12/17/17 12/18/17 06:59 06:59 06:59 Intake Total 2979 1550 600 Output Total 1290 985 600 Balance 1689 565 0 Weight 62.4 kg 64 kg Exam: GENERAL: well-nourished and in no acute distress. Patient is alert but not oriented to place time or person. Patient was noted to be lethargic however. HEAD: Atraumatic, normocephalic. EYES: Pupils equal round and reactive to light, extraocular movements intact, sclera anicteric, conjunctiva are normal. ENT: TMs normal, nares patent, oropharynx clear without exudates. Moist mucous membranes. No oral ulcerations or bleeding gums noted NECK: supple without lymphadenopathy or JVD. Trachea is central. No cervical or axillary lymphadenopathy noted. Carotids are 2+ LUNGS: Breath sounds bibasilar fine crackles at bases. Bibasilar mild wheezing noted. No significant dullness noted. CHEST: Palpation of chest wall shows no significant chest wall tenderness. 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 ABDOMEN: Soft, no significant tenderness appreciated, normoactive bowel sounds. No guarding, no rebound. No rigidity noted . No masses appreciated. EXTREMITIES: Pedal pulses are 1-2+, no calf tenderness noted, Trace + pedal edema noted. No clubbing or cyanosis. NEUROLOGICAL: Patient is alert but is not able to participate in neurological exam because of patient's current mental status PSYCH: Patient cannot participate in a neurologic and psych exam because of the patient's current mental status SKIN: No significant ecchymosis, rash, ulcerations or signs of pruritus noted. MUSCULOSKELETAL EXAM: No significant joint swelling noted. Results Laboratory Results: 12/17/17 06:17 12/17/17 05:17 12/17/17 12/17/17 05:17 06:17 WBC 11.1 H RBC 3.34 L Hgb 10.8 L Hct 32.0 L MCV 96 MCH 32.4 MCHC 33.8 RDW 13.0 Plt Count 244 Seg Neutrophils % Not Reportable Lymphocytes % Not Reportable Monocytes % Not Reportable Eosinophils % Not Reportable Basophils % Not Reportable Absolute Neutrophils Not Reportable Absolute Lymphocytes Not Reportable Absolute Monocytes Not Reportable Absolute Eosinophils Not Reportable Absolute Basophils Not Reportable Sodium 142.6 Potassium 3.7 Chloride 114 H Carbon Dioxide 22 Anion Gap 7 BUN 11 Creatinine 0.65 Est GFR ( Amer) > 60 Est GFR (Non-Af Amer) > 60 Glucose 104 Calcium 8.1 L 12/13/17 12/13/17 12/14/17 12:33 18:36 00:30 Troponin I 0.021 0.018 0.020 NT-Pro-B Natriuret Pep 12/15/17 12/16/17 06:18 03:45 Troponin I NT-Pro-B Natriuret Pep 4580 H 4980 H EKG Comments: Showed atrial fibrillation with reasonably well-controlled heart rate. Impressions: Abdomen/Pelvis CT 12/12/17 00:00 IMPRESSION: CT FINDINGS COMPATIBLE WITH HIGH GRADE DISTAL SMALL BOWEL OBSTRUCTION WITH TRANSITION POINT IN THE RIGHT LOWER QUADRANT. ADDITIONAL NOTE MADE OF INFLAMMATION INVOLVING THE TERMINAL ILEUM SUSPICIOUS FOR INFECTIOUS OR INFLAMMATORY BOWEL DISEASE. CORRELATE WITH PATIENT'S CLINICAL HISTORY. SMALL LEFT PLEURAL EFFUSION IN NODULAR INFLAMMATORY CHANGE INVOLVING THE OMENTUM PRESUMABLY REACTIVE TO OBSTRUCTION. Chest X-Ray 12/15/17 06:00 IMPRESSION: Left retrocardiac consolidation atelectasis versus pneumonia Assessment & Plan - Diagnosis (1) Atrial fibrillation Qualifiers: Atrial fibrillation type: persistent Qualified Code(s): I48.1 - Persistent atrial fibrillation Is this a current diagnosis for this admission?: Yes (2) Respiratory failure Is this a current diagnosis for this admission?: Yes (3) Small bowel obstruction Is this a current diagnosis for this admission?: Yes (4) Dementia Qualifiers: Dementia type: unspecified type Dementia behavioral disturbance: without behavioral disturbance Qualified Code(s): F03.90 - Unspecified dementia without behavioral disturbance Is this a current diagnosis for this admission?: Yes (5) Hypokalemia Is this a current diagnosis for this admission?: Yes (6) Pneumonia Qualifiers: Pneumonia type: due to unspecified organism Lung location: unspecified part of lung Is this a current diagnosis for this admission?: Yes - Notes Notes: Respiratory failure: Stable. Improving Atrial fibrillation: Rate better controlled. Pneumonia: Continue antibiotic therapy. Hypokalemia: Potassium improved but still on the low side. Patient remains quite sick with some mild respiratory distress. Generally however she is much improved. Patient remains in atrial fibrillation. Do not feel if whether patient would be a good candidate for chronic anticoagulation in view of dementia, marked general debility. If Eliquis is used, would recommend low-dose at 2.5 mg p.o. twice daily. Maybe it is best left to patient 's primary care md. Will continue to follow. - Time Time with patient: 15-25 minutes - CODE STATUS was discussed, patient remains full code. Surrogate decision-maker patient's in conjunction with son. Multiple medical problems were addressed. More than 50% of the time spent coordinating care, discussing management plans with involved caregivers. Management plans discussed with involved personnels. Medical decision making was of moderate to high complexity, patient's has multiple comorbidities. Medications reviewed and adjusted accordingly: Yes
[2017-12-17] MEDS: DIPHENHYDRAMINE HCL 50 MG/ML VIAL IV PRN (22:06)
[2017-12-17] MEDS: GABAPENTIN 100 MG CAPSULE PO SCH (22:06)
--- NOTE | 2017-12-17 23:53 | PDOC PROGRESS REPORT ---
Subjective Progress Note for:: 12/17/17 Subjective:: Patient is a 87-year-old female with a history of dementia and glaucoma who presented with a 3 day history of abdominal pain, obstipation and nausea and vomiting and was found to have a significant small bowel mechanical obstruction. Patient taken to the OR and is status post ex-exploratory laparotomy with lysis of adhesions and bowel resection. Patient was intubated and placed in ICU. Patient was extubated on December 14. Patient did develop A. fib with RVR was on Cardizem drip. Patient no longer with hallucinations. Shes just stating she would like to go home. Reason For Visit: SMALL BOWEL OBSTRUCTION Physical Exam Vital Signs: Temp Pulse Resp BP Pulse Ox 97.9 F 97 20 133/63 H 92 12/17/17 21:23 12/17/17 21:23 12/17/17 21:23 12/17/17 21:23 12/17/17 21:23 Intake & Output 12/16/17 12/17/17 12/18/17 06:59 06:59 06:59 Intake Total 2979 1550 600 Output Total 1290 985 600 Balance 1689 565 0 Weight 62.4 kg 64 kg General appearance: PRESENT: no acute distress, well-developed, well-nourished Head exam: PRESENT: normocephalic Eye exam: ABSENT: scleral icterus Mouth exam: PRESENT: moist, tongue midline Neck exam: ABSENT: carotid bruit, JVD, lymphadenopathy, thyromegaly Respiratory exam: PRESENT: clear to auscultation sacha. ABSENT: rales, rhonchi, wheezes Cardiovascular exam: PRESENT: RRR. ABSENT: diastolic murmur, rubs, systolic murmur Pulses: PRESENT: normal dorsalis pedis pul Vascular exam: PRESENT: normal capillary refill GI/Abdominal exam: PRESENT: normal bowel sounds, soft, other - mildline jennifer in place.. ABSENT: distended, guarding, mass, organolmegaly, rebound, tenderness Rectal exam: PRESENT: deferred Extremities exam: PRESENT: full ROM. ABSENT: calf tenderness, clubbing, pedal edema Neurological exam: PRESENT: alert, awake, oriented to person, oriented to place , oriented to time, oriented to situation, CN II-XII grossly intact. ABSENT: motor sensory deficit Psychiatric exam: PRESENT: appropriate affect, normal mood. ABSENT: homicidal ideation, suicidal ideation Skin exam: PRESENT: dry, intact, warm. ABSENT: cyanosis, rash Results Laboratory Results: 12/17/17 06:17 12/17/17 05:17 12/17/17 12/17/17 05:17 06:17 WBC 11.1 H RBC 3.34 L Hgb 10.8 L Hct 32.0 L MCV 96 MCH 32.4 MCHC 33.8 RDW 13.0 Plt Count 244 Seg Neutrophils % Not Reportable Lymphocytes % Not Reportable Monocytes % Not Reportable Eosinophils % Not Reportable Basophils % Not Reportable Absolute Neutrophils Not Reportable Absolute Lymphocytes Not Reportable Absolute Monocytes Not Reportable Absolute Eosinophils Not Reportable Absolute Basophils Not Reportable Sodium 142.6 Potassium 3.7 Chloride 114 H Carbon Dioxide 22 Anion Gap 7 BUN 11 Creatinine 0.65 Est GFR ( Amer) > 60 Est GFR (Non-Af Amer) > 60 Glucose 104 Calcium 8.1 L 12/13/17 12/13/17 12/14/17 12:33 18:36 00:30 Troponin I 0.021 0.018 0.020 NT-Pro-B Natriuret Pep 12/15/17 12/16/17 06:18 03:45 Troponin I NT-Pro-B Natriuret Pep 4580 H 4980 H Impressions: Abdomen/Pelvis CT 12/12/17 00:00 IMPRESSION: CT FINDINGS COMPATIBLE WITH HIGH GRADE DISTAL SMALL BOWEL OBSTRUCTION WITH TRANSITION POINT IN THE RIGHT LOWER QUADRANT. ADDITIONAL NOTE MADE OF INFLAMMATION INVOLVING THE TERMINAL ILEUM SUSPICIOUS FOR INFECTIOUS OR INFLAMMATORY BOWEL DISEASE. CORRELATE WITH PATIENT'S CLINICAL HISTORY. SMALL LEFT PLEURAL EFFUSION IN NODULAR INFLAMMATORY CHANGE INVOLVING THE OMENTUM PRESUMABLY REACTIVE TO OBSTRUCTION. Chest X-Ray 12/15/17 06:00 IMPRESSION: Left retrocardiac consolidation atelectasis versus pneumonia Assessment & Plan - Diagnosis (1) UTI (urinary tract infection) Is this a current diagnosis for this admission?: Yes Plan: E. coli UTI. Continue ceftrixaxone for 2 more days. (2) Ambulatory dysfunction Is this a current diagnosis for this admission?: Yes Plan: PT OT consulted plan is for discharge to [facility] for rehabilitation. Awaiting placement. (3) Atrial fibrillation Qualifiers: Atrial fibrillation type: persistent Qualified Code(s): I48.1 - Persistent atrial fibrillation Is this a current diagnosis for this admission?: Yes Plan: Appears to be new onset. Cardiology consulted. Now in sinus rhythm. Continue oral diltiazem 60 mg every 6 by cardiology. (4) Dementia Qualifiers: Dementia type: unspecified type Dementia behavioral disturbance: without behavioral disturbance Qualified Code(s): F03.90 - Unspecified dementia without behavioral disturbance Is this a current diagnosis for this admission?: Yes Plan: Patient now having some delirium along with her dementia. Patient restarted on her home Namenda. Patient normally takes benzos and SSRI scheduled. These should not be abruptly discontinued if possible. Weaning is best. However since they were discontinued, will try to stopped possible withdrawal symptoms by starting patient on gabapentin scheduled. (5) Glaucoma Qualifiers: Open angle glaucoma type: unspecified type Laterality: unspecified laterality Glaucoma stage: stage unspecified Is this a current diagnosis for this admission?: Yes Plan: Continue medicated eyedrops. (6) Respiratory failure Is this a current diagnosis for this admission?: Yes Plan: She was intubated during the procedure and is currently extubated and doing well. (7) Small bowel obstruction Is this a current diagnosis for this admission?: Yes Plan: Patient is status post exploratory lap with lysis of adhesions and resection of bowel. Patient is currently doing well. Patient did eat a little today. Treatment per surgery. (8) Volume overload Qualifiers: Hypervolemia type: unspecified Qualified Code(s): E87.70 - Fluid overload, unspecified Is this a current diagnosis for this admission?: Yes Plan: She became volume overloaded after she is receiving IV fluids. The infusion was decreased and patient was diuresed with IV Lasix. Patient no longer sounds congested. - Time Time Spent with patient: Less than 15 minutes Anticipated discharge: SNF Within: when bed available
[2017-12-18] MEDS: LEVALBUTEROL HCL NEB 0.63 MG/3 ML AMPUL NEB SCH ×3 (00:14→16:36)
[2017-12-18] MEDS: DILTIAZEM HCL 60 MG TABLET PO SCH ×4 (00:50→17:38)
[2017-12-18 05:21] LABS: HEMATOCRIT 31.4 % (36.0-47.0); HEMOGLOBIN 10.7 g/dL (12.0-15.5); MEAN CORPUSCULAR HEMOGLOBIN 32.4 pg (27.0-33.4); MEAN CORPUSCULAR VOLUME 95 fl (80-97); PLATELET COUNT 240 10^3/uL (150-450); RED CELL DISTRIBUTION WIDTH 13.4 % (11.5-14.0)
[2017-12-18 05:49] LABS: ANION GAP 7 (5-19); BLOOD UREA NITROGEN 8 mg/dL (7-20); CALCIUM 7.9 mg/dL (8.4-10.2); CARBON DIOXIDE 23 mmol/L (22-30); CHLORIDE 113 mmol/L (98-107); GLUCOSE 97 mg/dL (75-110); POTASSIUM 3.7 mmol/L (3.6-5.0); SODIUM 142.8 mmol/L (137-145)
[2017-12-18 05:51] LABS: ABSOLUTE LYMPHOCYTES# (MANUAL) 0.7 10^3/uL (0.5-4.7); BAND NEUTROPHILS % (MANUAL) 4 % (3-5); BASOPHILS % (MANUAL) 0 % (0-2); EOSINOPHILS % (MANUAL) 3 % (0-6); LYMPHOCYTES % (MANUAL) 8 % (13-45); MONOCYTES % (MANUAL) 11 % (3-13); SEGMENTED NEUTROPHILS % (MAN) 74 % (42-78); TOTAL CELLS COUNTED 100
[2017-12-18 05:52] LABS: PLATELET COMMENT ADEQUATE; RBC MORPHOLOGY COMMENT NORMO-CYTIC/CHROMIC; TOXIC GRANULATION SLIGHT; TOXIC VACUOLATION PRESENT
[2017-12-18] MEDS: GABAPENTIN 100 MG CAPSULE PO SCH (06:48)
[2017-12-18] MEDS: BRIMONIDINE TARTRATE 0.2% OPH SOLN 5 ML OD SCH ×2 (11:48→20:54)
[2017-12-18] MEDS: MEMANTINE HCL 10 MG TABLET PO SCH (11:48)
[2017-12-18] MEDS: ENOXAPARIN SODIUM INJ 30 MG/0.3 ML DISP.SYRIN SUBCUT SCH (11:49)
[2017-12-18] MEDS: CEFTRIAXONE SODIUM 1,000 MG in NORMAL SALINE 50 ML IV SCH (11:49)
[2017-12-18] MEDS: BISACODYL 10 MG SUPP.RECT PR SCH ×2 (12:02→17:35)
--- NOTE | 2017-12-18 13:54 | PDOC PROGRESS REPORT ---
Subjective Progress Note for:: 12/16/17 Subjective:: Lethargic Reason For Visit: SMALL BOWEL OBSTRUCTION Physical Exam Vital Signs: Temp Pulse Resp BP Pulse Ox 97.8 F 92 19 136/60 H 94 12/18/17 12:11 12/18/17 12:11 12/18/17 12:11 12/18/17 12:11 12/18/17 12:11 Intake & Output 12/17/17 12/18/17 12/19/17 06:59 06:59 06:59 Intake Total 1550 1160 0 Output Total 985 1050 400 Balance 565 110 -400 Weight 64 kg 64.3 kg General appearance: PRESENT: no acute distress, disheveled, obese Head exam: PRESENT: atraumatic, normocephalic Eye exam: PRESENT: conjunctiva pale, EOMI. ABSENT: conjunctival injection, conjunctiva pink, nystagmus, periorbital swelling, scleral icterus Mouth exam: PRESENT: dry mucosa, neck supple, tongue midline. ABSENT: laceration, moist Neck exam: ABSENT: carotid bruit, JVD, lymphadenopathy, thyromegaly, tracheal deviation, tracheostomy Respiratory exam: PRESENT: decreased breath sounds, prolonged expiratory phas, rhonchi, symmetrical, unlabored. ABSENT: accessory muscle use, chest wall tenderness, clear to auscultation sacha, crackles, retraction Cardiovascular exam: PRESENT: RRR, +S1, +S2 Pulses: PRESENT: normal radial pulses GI/Abdominal exam: PRESENT: diminished bowel sounds, soft Extremities exam: PRESENT: pedal edema. ABSENT: calf tenderness, clubbing, joint swelling Musculoskeletal exam: ABSENT: ambulatory, deformity, dislocation Neurological exam: PRESENT: awake Skin exam: PRESENT: dry, warm Results Laboratory Results: 12/18/17 04:55 12/18/17 04:55 12/18/17 12/18/17 04:55 04:55 WBC 9.0 RBC 3.30 L Hgb 10.7 L Hct 31.4 L MCV 95 MCH 32.4 MCHC 34.0 RDW 13.4 Plt Count 240 Seg Neutrophils % Not Reportable Lymphocytes % Not Reportable Monocytes % Not Reportable Eosinophils % Not Reportable Basophils % Not Reportable Absolute Neutrophils Not Reportable Absolute Lymphocytes Not Reportable Absolute Monocytes Not Reportable Absolute Eosinophils Not Reportable Absolute Basophils Not Reportable Sodium 142.8 Potassium 3.7 Chloride 113 H Carbon Dioxide 23 Anion Gap 7 BUN 8 Creatinine 0.60 Est GFR ( Amer) > 60 Est GFR (Non-Af Amer) > 60 Glucose 97 Calcium 7.9 L 12/13/17 12/13/17 12/14/17 12:33 18:36 00:30 Troponin I 0.021 0.018 0.020 NT-Pro-B Natriuret Pep 12/15/17 12/16/17 06:18 03:45 Troponin I NT-Pro-B Natriuret Pep 4580 H 4980 H Impressions: Abdomen/Pelvis CT 12/12/17 00:00 IMPRESSION: CT FINDINGS COMPATIBLE WITH HIGH GRADE DISTAL SMALL BOWEL OBSTRUCTION WITH TRANSITION POINT IN THE RIGHT LOWER QUADRANT. ADDITIONAL NOTE MADE OF INFLAMMATION INVOLVING THE TERMINAL ILEUM SUSPICIOUS FOR INFECTIOUS OR INFLAMMATORY BOWEL DISEASE. CORRELATE WITH PATIENT'S CLINICAL HISTORY. SMALL LEFT PLEURAL EFFUSION IN NODULAR INFLAMMATORY CHANGE INVOLVING THE OMENTUM PRESUMABLY REACTIVE TO OBSTRUCTION. Chest X-Ray 12/15/17 06:00 IMPRESSION: Left retrocardiac consolidation atelectasis versus pneumonia Assessment & Plan - Diagnosis (1) Ambulatory dysfunction Is this a current diagnosis for this admission?: Yes (2) Dementia Qualifiers: Dementia type: unspecified type Dementia behavioral disturbance: without behavioral disturbance Qualified Code(s): F03.90 - Unspecified dementia without behavioral disturbance Is this a current diagnosis for this admission?: Yes Plan: unchanged (3) Glaucoma Qualifiers: Open angle glaucoma type: unspecified type Laterality: unspecified laterality Glaucoma stage: stage unspecified Is this a current diagnosis for this admission?: Yes (4) Small bowel obstruction Is this a current diagnosis for this admission?: Yes Plan: as per surgery (5) Respiratory failure Is this a current diagnosis for this admission?: Yes Plan: 48 hours status post extubation remains stable at this time
--- NOTE | 2017-12-18 13:58 | PDOC PROGRESS REPORT ---
Subjective Progress Note for:: 12/17/17 Subjective:: awake Reason For Visit: SMALL BOWEL OBSTRUCTION Physical Exam Vital Signs: Temp Pulse Resp BP Pulse Ox 97.8 F 92 19 136/60 H 94 12/18/17 12:11 12/18/17 12:11 12/18/17 12:11 12/18/17 12:11 12/18/17 12:11 Intake & Output 12/17/17 12/18/17 12/19/17 06:59 06:59 06:59 Intake Total 1550 1160 0 Output Total 985 1050 400 Balance 565 110 -400 Weight 64 kg 64.3 kg General appearance: PRESENT: no acute distress, disheveled, obese Head exam: PRESENT: atraumatic, normocephalic Eye exam: PRESENT: conjunctiva pale, EOMI Mouth exam: PRESENT: dry mucosa, neck supple, tongue midline. ABSENT: laceration, moist Neck exam: ABSENT: carotid bruit, JVD, lymphadenopathy, thyromegaly, tracheal deviation, tracheostomy Respiratory exam: PRESENT: decreased breath sounds, prolonged expiratory phas, rhonchi, symmetrical, unlabored. ABSENT: accessory muscle use, chest wall tenderness, clear to auscultation sacha, crackles, retraction, stridor, tachypnea Cardiovascular exam: PRESENT: RRR, +S1, +S2 Pulses: PRESENT: normal radial pulses GI/Abdominal exam: PRESENT: diminished bowel sounds, soft Extremities exam: ABSENT: clubbing, full ROM Musculoskeletal exam: ABSENT: ambulatory, deformity, dislocation Neurological exam: PRESENT: awake Skin exam: PRESENT: dry, warm Results Laboratory Results: 12/18/17 04:55 12/18/17 04:55 12/18/17 12/18/17 04:55 04:55 WBC 9.0 RBC 3.30 L Hgb 10.7 L Hct 31.4 L MCV 95 MCH 32.4 MCHC 34.0 RDW 13.4 Plt Count 240 Seg Neutrophils % Not Reportable Lymphocytes % Not Reportable Monocytes % Not Reportable Eosinophils % Not Reportable Basophils % Not Reportable Absolute Neutrophils Not Reportable Absolute Lymphocytes Not Reportable Absolute Monocytes Not Reportable Absolute Eosinophils Not Reportable Absolute Basophils Not Reportable Sodium 142.8 Potassium 3.7 Chloride 113 H Carbon Dioxide 23 Anion Gap 7 BUN 8 Creatinine 0.60 Est GFR ( Amer) > 60 Est GFR (Non-Af Amer) > 60 Glucose 97 Calcium 7.9 L 12/13/17 12/13/17 12/14/17 12:33 18:36 00:30 Troponin I 0.021 0.018 0.020 NT-Pro-B Natriuret Pep 12/15/17 12/16/17 06:18 03:45 Troponin I NT-Pro-B Natriuret Pep 4580 H 4980 H Impressions: Abdomen/Pelvis CT 12/12/17 00:00 IMPRESSION: CT FINDINGS COMPATIBLE WITH HIGH GRADE DISTAL SMALL BOWEL OBSTRUCTION WITH TRANSITION POINT IN THE RIGHT LOWER QUADRANT. ADDITIONAL NOTE MADE OF INFLAMMATION INVOLVING THE TERMINAL ILEUM SUSPICIOUS FOR INFECTIOUS OR INFLAMMATORY BOWEL DISEASE. CORRELATE WITH PATIENT'S CLINICAL HISTORY. SMALL LEFT PLEURAL EFFUSION IN NODULAR INFLAMMATORY CHANGE INVOLVING THE OMENTUM PRESUMABLY REACTIVE TO OBSTRUCTION. Chest X-Ray 12/15/17 06:00 IMPRESSION: Left retrocardiac consolidation atelectasis versus pneumonia Assessment & Plan - Diagnosis (1) Ambulatory dysfunction Is this a current diagnosis for this admission?: Yes (2) Dementia Qualifiers: Dementia type: unspecified type Dementia behavioral disturbance: without behavioral disturbance Qualified Code(s): F03.90 - Unspecified dementia without behavioral disturbance Is this a current diagnosis for this admission?: Yes Plan: unchanged (3) Glaucoma Qualifiers: Open angle glaucoma type: unspecified type Laterality: unspecified laterality Glaucoma stage: stage unspecified Is this a current diagnosis for this admission?: Yes Plan: Home Meds Table Brimonidine Tartrate [Alphagan P] 1 drop OD BID 12/13/17 Latanoprost [Xalatan] 1 drop OU QHS 12/13/17 (4) Small bowel obstruction Is this a current diagnosis for this admission?: Yes Plan: as per surgery (5) Respiratory failure Is this a current diagnosis for this admission?: Yes Plan: remains stable at this time
--- NOTE | 2017-12-18 14:00 | PDOC PROGRESS REPORT ---
Subjective Progress Note for:: 12/18/17 Subjective:: Lethargic Reason For Visit: SMALL BOWEL OBSTRUCTION Physical Exam Vital Signs: Temp Pulse Resp BP Pulse Ox 97.8 F 92 19 136/60 H 94 12/18/17 12:11 12/18/17 12:11 12/18/17 12:11 12/18/17 12:11 12/18/17 12:11 Intake & Output 12/17/17 12/18/17 12/19/17 06:59 06:59 06:59 Intake Total 1550 1160 0 Output Total 985 1050 400 Balance 565 110 -400 Weight 64 kg 64.3 kg General appearance: PRESENT: no acute distress, disheveled, obese Head exam: PRESENT: atraumatic, normocephalic Eye exam: PRESENT: conjunctiva pale, EOMI Neck exam: ABSENT: carotid bruit, JVD, lymphadenopathy, thyromegaly, tracheal deviation, tracheostomy Respiratory exam: PRESENT: decreased breath sounds, prolonged expiratory phas, rhonchi, symmetrical, unlabored. ABSENT: accessory muscle use, chest wall tenderness, clear to auscultation sacha, crackles, rales, retraction, stridor, tachypnea Cardiovascular exam: PRESENT: RRR, +S1, +S2 Pulses: PRESENT: normal radial pulses GI/Abdominal exam: PRESENT: diminished bowel sounds, soft Extremities exam: ABSENT: clubbing, joint swelling Musculoskeletal exam: ABSENT: ambulatory, deformity, dislocation Neurological exam: PRESENT: awake Skin exam: PRESENT: dry, warm Results Laboratory Results: 12/18/17 04:55 12/18/17 04:55 12/18/17 12/18/17 04:55 04:55 WBC 9.0 RBC 3.30 L Hgb 10.7 L Hct 31.4 L MCV 95 MCH 32.4 MCHC 34.0 RDW 13.4 Plt Count 240 Seg Neutrophils % Not Reportable Lymphocytes % Not Reportable Monocytes % Not Reportable Eosinophils % Not Reportable Basophils % Not Reportable Absolute Neutrophils Not Reportable Absolute Lymphocytes Not Reportable Absolute Monocytes Not Reportable Absolute Eosinophils Not Reportable Absolute Basophils Not Reportable Sodium 142.8 Potassium 3.7 Chloride 113 H Carbon Dioxide 23 Anion Gap 7 BUN 8 Creatinine 0.60 Est GFR ( Amer) > 60 Est GFR (Non-Af Amer) > 60 Glucose 97 Calcium 7.9 L 12/13/17 12/13/17 12/14/17 12:33 18:36 00:30 Troponin I 0.021 0.018 0.020 NT-Pro-B Natriuret Pep 12/15/17 12/16/17 06:18 03:45 Troponin I NT-Pro-B Natriuret Pep 4580 H 4980 H Impressions: Abdomen/Pelvis CT 12/12/17 00:00 IMPRESSION: CT FINDINGS COMPATIBLE WITH HIGH GRADE DISTAL SMALL BOWEL OBSTRUCTION WITH TRANSITION POINT IN THE RIGHT LOWER QUADRANT. ADDITIONAL NOTE MADE OF INFLAMMATION INVOLVING THE TERMINAL ILEUM SUSPICIOUS FOR INFECTIOUS OR INFLAMMATORY BOWEL DISEASE. CORRELATE WITH PATIENT'S CLINICAL HISTORY. SMALL LEFT PLEURAL EFFUSION IN NODULAR INFLAMMATORY CHANGE INVOLVING THE OMENTUM PRESUMABLY REACTIVE TO OBSTRUCTION. Chest X-Ray 12/15/17 06:00 IMPRESSION: Left retrocardiac consolidation atelectasis versus pneumonia Assessment & Plan - Diagnosis (1) Ambulatory dysfunction Is this a current diagnosis for this admission?: Yes (2) Dementia Qualifiers: Dementia type: unspecified type Dementia behavioral disturbance: without behavioral disturbance Qualified Code(s): F03.90 - Unspecified dementia without behavioral disturbance Is this a current diagnosis for this admission?: Yes Plan: unchanged (3) Glaucoma Qualifiers: Open angle glaucoma type: unspecified type Laterality: unspecified laterality Glaucoma stage: stage unspecified Is this a current diagnosis for this admission?: Yes Plan: Home Meds Table Brimonidine Tartrate [Alphagan P] 1 drop OD BID 12/13/17 Latanoprost [Xalatan] 1 drop OU QHS 12/13/17 (4) Small bowel obstruction Is this a current diagnosis for this admission?: Yes Plan: as per surgery (5) Respiratory failure Is this a current diagnosis for this admission?: Yes Plan: remains stable at this time
--- NOTE | 2017-12-18 16:12 | PDOC PROGRESS REPORT ---
Subjective Progress Note for:: 12/18/17 Subjective:: Patient is a 87-year-old female with a history of dementia and glaucoma who presented with a 3 day history of abdominal pain, obstipation and nausea and vomiting and was found to have a significant small bowel mechanical obstruction. Patient taken to the OR and is status post ex-exploratory laparotomy with lysis of adhesions and bowel resection. Patient has been mostly sleeping. Patient was started on gabapentin for concern for possible withdrawal as her SSRI in red cells were discontinued by surgery. Reason For Visit: SMALL BOWEL OBSTRUCTION Physical Exam Vital Signs: Temp Pulse Resp BP Pulse Ox 97.8 F 92 19 136/60 H 94 12/18/17 12:11 12/18/17 12:11 12/18/17 12:11 12/18/17 12:11 12/18/17 12:11 Intake & Output 12/17/17 12/18/17 12/19/17 06:59 06:59 06:59 Intake Total 1550 1160 0 Output Total 985 1050 400 Balance 565 110 -400 Weight 64 kg 64.3 kg General appearance: PRESENT: no acute distress, well-developed, well-nourished Eye exam: ABSENT: scleral icterus Ear exam: PRESENT: normal external ear exam Mouth exam: PRESENT: moist Neck exam: ABSENT: carotid bruit, JVD, lymphadenopathy, thyromegaly Respiratory exam: PRESENT: clear to auscultation sacha. ABSENT: rales, rhonchi, wheezes Cardiovascular exam: PRESENT: RRR. ABSENT: diastolic murmur, rubs, systolic murmur Pulses: PRESENT: normal dorsalis pedis pul GI/Abdominal exam: PRESENT: normal bowel sounds, soft, other - Surgical jennifer midline. ABSENT: distended, guarding, mass, organolmegaly, rebound, tenderness Rectal exam: PRESENT: deferred Extremities exam: PRESENT: full ROM. ABSENT: calf tenderness, clubbing, pedal edema Neurological exam: PRESENT: other - Patient is sleeping deeply. ABSENT: motor sensory deficit Psychiatric exam: ABSENT: homicidal ideation, suicidal ideation Skin exam: PRESENT: dry, intact, warm. ABSENT: cyanosis, rash Results Laboratory Results: 12/18/17 04:55 12/18/17 04:55 12/18/17 12/18/17 04:55 04:55 WBC 9.0 RBC 3.30 L Hgb 10.7 L Hct 31.4 L MCV 95 MCH 32.4 MCHC 34.0 RDW 13.4 Plt Count 240 Seg Neutrophils % Not Reportable Lymphocytes % Not Reportable Monocytes % Not Reportable Eosinophils % Not Reportable Basophils % Not Reportable Absolute Neutrophils Not Reportable Absolute Lymphocytes Not Reportable Absolute Monocytes Not Reportable Absolute Eosinophils Not Reportable Absolute Basophils Not Reportable Sodium 142.8 Potassium 3.7 Chloride 113 H Carbon Dioxide 23 Anion Gap 7 BUN 8 Creatinine 0.60 Est GFR ( Amer) > 60 Est GFR (Non-Af Amer) > 60 Glucose 97 Calcium 7.9 L 12/13/17 12/13/17 12/14/17 12:33 18:36 00:30 Troponin I 0.021 0.018 0.020 NT-Pro-B Natriuret Pep 12/15/17 12/16/17 06:18 03:45 Troponin I NT-Pro-B Natriuret Pep 4580 H 4980 H Impressions: Abdomen/Pelvis CT 12/12/17 00:00 IMPRESSION: CT FINDINGS COMPATIBLE WITH HIGH GRADE DISTAL SMALL BOWEL OBSTRUCTION WITH TRANSITION POINT IN THE RIGHT LOWER QUADRANT. ADDITIONAL NOTE MADE OF INFLAMMATION INVOLVING THE TERMINAL ILEUM SUSPICIOUS FOR INFECTIOUS OR INFLAMMATORY BOWEL DISEASE. CORRELATE WITH PATIENT'S CLINICAL HISTORY. SMALL LEFT PLEURAL EFFUSION IN NODULAR INFLAMMATORY CHANGE INVOLVING THE OMENTUM PRESUMABLY REACTIVE TO OBSTRUCTION. Chest X-Ray 12/15/17 06:00 IMPRESSION: Left retrocardiac consolidation atelectasis versus pneumonia Assessment & Plan - Diagnosis (1) UTI (urinary tract infection) Is this a current diagnosis for this admission?: Yes Plan: E. coli UTI. Continue ceftrixaxone for 1 more day. (2) Ambulatory dysfunction Is this a current diagnosis for this admission?: Yes Plan: PT OT consulted plan is for discharge to [facility]. Awaiting placement. (3) Atrial fibrillation Qualifiers: Atrial fibrillation type: persistent Qualified Code(s): I48.1 - Persistent atrial fibrillation Is this a current diagnosis for this admission?: Yes Plan: Appears to be new onset. Cardiology consulted. Now in sinus rhythm. Continue oral diltiazem 60 mg every 6 by cardiology. Agree with cardiology that patient is not a good candidate for anticoagulation due to her dementia and marked debility and risk of fall. (4) Dementia Qualifiers: Dementia type: unspecified type Dementia behavioral disturbance: without behavioral disturbance Qualified Code(s): F03.90 - Unspecified dementia without behavioral disturbance Is this a current diagnosis for this admission?: Yes Plan: Patient now having some delirium along with her dementia. Patient restarted on her home Namenda. Patient normally takes benzos and SSRI scheduled. These should not be abruptly discontinued if possible. Try to use gabapentin to wicho any signs of withdrawal. Patient however is very drowsy after being started on this medication. Will discontinue gabapentin. Will use Ativan 0.5 mg nightly. (5) Glaucoma Qualifiers: Open angle glaucoma type: unspecified type Laterality: unspecified laterality Glaucoma stage: stage unspecified Is this a current diagnosis for this admission?: Yes Plan: Continue medicated eyedrops. (6) Respiratory failure Is this a current diagnosis for this admission?: Yes Plan: Intubated for the procedure and extubated on 14 December. Patient has not had any further complications. (7) Small bowel obstruction Is this a current diagnosis for this admission?: Yes Plan: Patient is status post exploratory lap with lysis of adhesions and resection of bowel. Patient is currently doing well. Patient is having bowel movements without the use of suppositories. Patient also tolerating diet. Patient however is not eating very much however I do not believe patient was a big eater at baseline. (8) Volume overload Qualifiers: Hypervolemia type: unspecified Qualified Code(s): E87.70 - Fluid overload, unspecified Is this a current diagnosis for this admission?: Yes Plan: She became volume overloaded after she is receiving IV fluids. Will discontinue IV fluids. Encouraged keep patient to eat and drink. - Time Time Spent with patient: Less than 15 minutes Anticipated discharge: SNF Within: when bed available
[2017-12-18] MEDS: LATANOPROST 0.005% OPH SOLN 2.5 ML OU SCH (17:38)
--- NOTE | 2017-12-18 19:16 | PDOC PROGRESS REPORT ---
Subjective Progress Note for:: 12/18/17 Subjective:: It is without complaints. Has been resting comfortably this morning, and had a good night, according to the nursing staff. Reason For Visit: SMALL BOWEL OBSTRUCTION Physical Exam Vital Signs: Temp Pulse Resp BP Pulse Ox 97.9 F 90 20 135/60 H 95 12/18/17 16:45 12/18/17 16:45 12/18/17 16:45 12/18/17 16:45 12/18/17 16:45 Intake & Output 12/17/17 12/18/17 12/19/17 06:59 06:59 06:59 Intake Total 1550 1160 200 Output Total 985 1050 650 Balance 565 110 -450 Weight 64 kg 64.3 kg General appearance: PRESENT: no acute distress Mouth exam: PRESENT: moist, neck supple Respiratory exam: PRESENT: clear to auscultation sacha, unlabored GI/Abdominal exam: PRESENT: normal bowel sounds, soft. ABSENT: distended, guarding, hernia, tenderness Results Laboratory Results: 12/18/17 04:55 12/18/17 04:55 12/18/17 12/18/17 04:55 04:55 WBC 9.0 RBC 3.30 L Hgb 10.7 L Hct 31.4 L MCV 95 MCH 32.4 MCHC 34.0 RDW 13.4 Plt Count 240 Seg Neutrophils % Not Reportable Lymphocytes % Not Reportable Monocytes % Not Reportable Eosinophils % Not Reportable Basophils % Not Reportable Absolute Neutrophils Not Reportable Absolute Lymphocytes Not Reportable Absolute Monocytes Not Reportable Absolute Eosinophils Not Reportable Absolute Basophils Not Reportable Sodium 142.8 Potassium 3.7 Chloride 113 H Carbon Dioxide 23 Anion Gap 7 BUN 8 Creatinine 0.60 Est GFR ( Amer) > 60 Est GFR (Non-Af Amer) > 60 Glucose 97 Calcium 7.9 L 12/13/17 12/13/17 12/14/17 12:33 18:36 00:30 Troponin I 0.021 0.018 0.020 NT-Pro-B Natriuret Pep 12/15/17 12/16/17 06:18 03:45 Troponin I NT-Pro-B Natriuret Pep 4580 H 4980 H Impressions: Abdomen/Pelvis CT 12/12/17 00:00 IMPRESSION: CT FINDINGS COMPATIBLE WITH HIGH GRADE DISTAL SMALL BOWEL OBSTRUCTION WITH TRANSITION POINT IN THE RIGHT LOWER QUADRANT. ADDITIONAL NOTE MADE OF INFLAMMATION INVOLVING THE TERMINAL ILEUM SUSPICIOUS FOR INFECTIOUS OR INFLAMMATORY BOWEL DISEASE. CORRELATE WITH PATIENT'S CLINICAL HISTORY. SMALL LEFT PLEURAL EFFUSION IN NODULAR INFLAMMATORY CHANGE INVOLVING THE OMENTUM PRESUMABLY REACTIVE TO OBSTRUCTION. Chest X-Ray 12/15/17 06:00 IMPRESSION: Left retrocardiac consolidation atelectasis versus pneumonia Assessment & Plan - Diagnosis (1) Small bowel obstruction Is this a current diagnosis for this admission?: Yes - Plan Summary Plan Summary: Patient is tolerating diet, and is awaiting disposition to a senior care of her family's choice.
[2017-12-18] MEDS: LORAZEPAM 0.5 MG TABLET PO SCH (20:53)
[2017-12-19] MEDS: LEVALBUTEROL HCL NEB 0.63 MG/3 ML AMPUL NEB SCH ×3 (00:16→16:04)
[2017-12-19] MEDS: DILTIAZEM HCL 60 MG TABLET PO SCH ×4 (00:52→17:06)
[2017-12-19 05:23] LABS: HEMATOCRIT 31.1 % (36.0-47.0); HEMOGLOBIN 10.6 g/dL (12.0-15.5); MEAN CORPUSCULAR HEMOGLOBIN 32.2 pg (27.0-33.4); MEAN CORPUSCULAR HGB CONC 34.1 g/dL (32.0-36.0); MEAN CORPUSCULAR VOLUME 95 fl (80-97); PLATELET COUNT 247 10^3/uL (150-450); RED BLOOD COUNT 3.29 10^6/uL (3.72-5.28); RED CELL DISTRIBUTION WIDTH 13.1 % (11.5-14.0); WHITE BLOOD COUNT 8.7 10^3/uL (4.0-10.5)
[2017-12-19 05:31] LABS: ANION GAP 6 (5-19); BLOOD UREA NITROGEN 10 mg/dL (7-20); CALCIUM 8.2 mg/dL (8.4-10.2); CARBON DIOXIDE 24 mmol/L (22-30); CHLORIDE 110 mmol/L (98-107); GLUCOSE 99 mg/dL (75-110); POTASSIUM 3.5 mmol/L (3.6-5.0); SODIUM 140.2 mmol/L (137-145)
[2017-12-19 06:33] LABS: ARTERIAL BLOOD BASE EXCESS 1.9 mmol/L; ARTERIAL BLOOD H2CO3 1.03 mmol/L (1.05-1.35); ARTERIAL BLOOD HCO3 25.1 mmol/L (20-26); ARTERIAL BLOOD O2 SATURATION 88.9 % (94-98); ARTERIAL BLOOD PCO2 34.1 mmHg (35-45); ARTERIAL BLOOD PH 7.48 (7.35-7.45); ARTERIAL BLOOD PO2 50.8 mmHg (80-100); ARTERIAL BLOOD TOTAL CO2 26.1 mmol/L (21-25)
[2017-12-19 06:34] LABS: ARTERIAL BLOOD FIO2 ROOM AIR
[2017-12-19 06:44] LABS: ABSOLUTE LYMPHOCYTES# (MANUAL) 1.3 10^3/uL (0.5-4.7); ABSOLUTE MONOCYTES # (MANUAL) 0.8 10^3/uL (0.1-1.4); ABSOLUTE NEUTROPHILS# (MANUAL) 6.4 10^3/uL (1.7-8.2); BASOPHILS % (MANUAL) 1 % (0-2); EOSINOPHILS % (MANUAL) 1 % (0-6); LYMPHOCYTES % (MANUAL) 15 % (13-45); METAMYELOCYTES % (MANUAL) 1 % (0); MONOCYTES % (MANUAL) 9 % (3-13); SEGMENTED NEUTROPHILS % (MAN) 73 % (42-78); TOTAL CELLS COUNTED 100
[2017-12-19 06:46] LABS: TOXIC GRANULATION 1+
[2017-12-19 06:47] LABS: OVALOCYTES SLIGHT; PLATELET COMMENT ADEQUATE; PLATELET LARGE PRESENT; POIKILOCYTOSIS SLIGHT; SCHISTOCYTES SLIGHT; TEAR DROP CELLS 1+
[2017-12-19] MEDS ORDERED: POTASSIUM CHLORIDE 20 MEQ/15 ML UDCUP PO ONE (08:15)
[2017-12-19] MEDS: ENOXAPARIN SODIUM INJ 30 MG/0.3 ML DISP.SYRIN SUBCUT SCH (09:00)
[2017-12-19] MEDS: MEMANTINE HCL 10 MG TABLET PO SCH (09:01)
[2017-12-19] MEDS: BRIMONIDINE TARTRATE 0.2% OPH SOLN 5 ML OD SCH ×2 (09:01→21:59)
[2017-12-19] MEDS: BISACODYL 10 MG SUPP.RECT PR SCH ×2 (09:02→17:07)
[2017-12-19] MEDS: CEFTRIAXONE SODIUM 1,000 MG in NORMAL SALINE 50 ML IV SCH (09:02)
[2017-12-19] MEDS: LATANOPROST 0.005% OPH SOLN 2.5 ML OU SCH (17:06)
--- NOTE | 2017-12-19 20:28 | PDOC PROGRESS REPORT ---
Subjective Progress Note for:: 12/19/17 Subjective:: Patient noted to be much improved. Telemetry actually shows sinus rhythm. Review of systems: Rest review of systems negative. Medications: Medications have been reviewed. Reason For Visit: SMALL BOWEL OBSTRUCTION Physical Exam Vital Signs: Temp Pulse Resp BP Pulse Ox 98.6 F 97 16 120/59 L 94 12/19/17 15:46 12/19/17 16:04 12/19/17 16:04 12/19/17 15:46 12/19/17 16:04 Intake & Output 12/18/17 12/19/17 12/20/17 06:59 06:59 06:59 Intake Total 1160 428 663 Output Total 1050 1050 500 Balance 110 -622 163 Weight 64.3 kg 63.9 kg Exam: GENERAL: well-nourished and in no acute distress. Patient is alert. Patient is verbal and does answers appropriately to some questions. HEAD: Atraumatic, normocephalic. EYES: Pupils equal round and reactive to light, extraocular movements intact, sclera anicteric, conjunctiva are normal. ENT: TMs normal, nares patent, oropharynx clear without exudates. Moist mucous membranes. No oral ulcerations or bleeding gums noted NECK: supple without lymphadenopathy or JVD. Trachea is central. No cervical or axillary lymphadenopathy noted. Carotids are 2+ LUNGS: Breath sounds bibasilar fine crackles at bases. No significant dullness noted. CHEST: Palpation of chest wall shows no significant chest wall tenderness. 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 ABDOMEN: Soft, no significant tenderness appreciated, normoactive bowel sounds. No guarding, no rebound. No rigidity noted . No masses appreciated. EXTREMITIES: Pedal pulses are 1-2+, no calf tenderness noted, Trace + pedal edema noted. No clubbing or cyanosis. NEUROLOGICAL: Patient is alert but is not able to participate fully participate in neurological exam PSYCH: Patient cannot participate in a neurologic and psych exam because general debility and some underlying dementia. SKIN: No significant ecchymosis, rash, ulcerations or signs of pruritus noted. MUSCULOSKELETAL EXAM: No significant joint swelling noted. Results Laboratory Results: 12/19/17 04:55 12/19/17 04:55 12/19/17 12/19/17 12/19/17 04:55 04:55 06:15 WBC 8.7 RBC 3.29 L Hgb 10.6 L Hct 31.1 L MCV 95 MCH 32.2 MCHC 34.1 RDW 13.1 Plt Count 247 Seg Neutrophils % Not Reportable Lymphocytes % Not Reportable Monocytes % Not Reportable Eosinophils % Not Reportable Basophils % Not Reportable Absolute Neutrophils Not Reportable Absolute Lymphocytes Not Reportable Absolute Monocytes Not Reportable Absolute Eosinophils Not Reportable Absolute Basophils Not Reportable Carbonic Acid 1.03 L HCO3/H2CO3 Ratio 24:1 ABG pH 7.48 H ABG pCO2 34.1 L ABG pO2 50.8 L ABG HCO3 25.1 ABG O2 Saturation 88.9 L ABG Base Excess 1.9 FiO2 ROOM AIR Sodium 140.2 Potassium 3.5 L Chloride 110 H Carbon Dioxide 24 Anion Gap 6 BUN 10 Creatinine 0.61 Est GFR ( Amer) > 60 Est GFR (Non-Af Amer) > 60 Glucose 99 Calcium 8.2 L 12/13/17 12/13/17 12/14/17 12:33 18:36 00:30 Troponin I 0.021 0.018 0.020 NT-Pro-B Natriuret Pep 12/15/17 12/16/17 06:18 03:45 Troponin I NT-Pro-B Natriuret Pep 4580 H 4980 H Impressions: Abdomen/Pelvis CT 12/12/17 00:00 IMPRESSION: CT FINDINGS COMPATIBLE WITH HIGH GRADE DISTAL SMALL BOWEL OBSTRUCTION WITH TRANSITION POINT IN THE RIGHT LOWER QUADRANT. ADDITIONAL NOTE MADE OF INFLAMMATION INVOLVING THE TERMINAL ILEUM SUSPICIOUS FOR INFECTIOUS OR INFLAMMATORY BOWEL DISEASE. CORRELATE WITH PATIENT'S CLINICAL HISTORY. SMALL LEFT PLEURAL EFFUSION IN NODULAR INFLAMMATORY CHANGE INVOLVING THE OMENTUM PRESUMABLY REACTIVE TO OBSTRUCTION. Chest X-Ray 12/15/17 06:00 IMPRESSION: Left retrocardiac consolidation atelectasis versus pneumonia Assessment & Plan - Diagnosis (1) Atrial fibrillation Qualifiers: Atrial fibrillation type: persistent Qualified Code(s): I48.1 - Persistent atrial fibrillation Is this a current diagnosis for this admission?: Yes (2) Respiratory failure Is this a current diagnosis for this admission?: Yes (3) Small bowel obstruction Is this a current diagnosis for this admission?: Yes (4) Dementia Qualifiers: Dementia type: unspecified type Dementia behavioral disturbance: without behavioral disturbance Qualified Code(s): F03.90 - Unspecified dementia without behavioral disturbance Is this a current diagnosis for this admission?: Yes (5) Hypokalemia Is this a current diagnosis for this admission?: Yes (6) Pneumonia Qualifiers: Pneumonia type: due to unspecified organism Lung location: unspecified part of lung Is this a current diagnosis for this admission?: Yes - Notes Notes: Significantly improved today and is more alert today. Atrial fibrillation: Paroxysmal, patient is maintaining sinus rhythm. No need for chronic anticoagulation at this point. This is because of patient' s advanced age and has increased has blood risk factors. Patient has also been maintaining sinus rhythm and any A. fib was postop related. Respiratory failure: Much improved. Continue oxygen supplementation. Pneumonia: Continue antibiotic therapy. Hypokalemia: Resolved - Time Time with patient: 15-25 minutes Medications reviewed and adjusted accordingly: Yes
[2017-12-19] MEDS: LORAZEPAM 0.5 MG TABLET PO SCH (21:59)
[2017-12-19] MEDS: BENZONATATE 100 MG CAPSULE PO SCH (21:59)
--- NOTE | 2017-12-19 22:22 | PDOC PROGRESS REPORT ---
Subjective Progress Note for:: 12/19/17 Subjective:: Patient is a 87-year-old female with a history of dementia and glaucoma who presented with a 3 day history of abdominal pain, obstipation and nausea and vomiting and was found to have a significant small bowel mechanical obstruction. Patient taken to the OR and is status post ex-exploratory laparotomy with lysis of adhesions and bowel resection. Patient is awake but is starting to see worms again. Patient would like something for cough to prevent the pressure on her stomach. She is afraid that her sutures my burst open. Patient is otherwise doing well. Reason For Visit: SMALL BOWEL OBSTRUCTION Physical Exam Vital Signs: Temp Pulse Resp BP Pulse Ox 98.6 F 101 H 16 120/59 L 94 12/19/17 15:46 12/19/17 19:00 12/19/17 16:04 12/19/17 15:46 12/19/17 16:04 Intake & Output 12/18/17 12/19/17 12/20/17 06:59 06:59 06:59 Intake Total 1160 428 663 Output Total 1050 1050 500 Balance 110 -622 163 Weight 64.3 kg 63.9 kg General appearance: PRESENT: no acute distress, well-developed, well-nourished Head exam: PRESENT: normocephalic Eye exam: PRESENT: EOMI. ABSENT: scleral icterus Ear exam: PRESENT: normal external ear exam Mouth exam: PRESENT: moist Neck exam: ABSENT: carotid bruit, JVD, lymphadenopathy, thyromegaly Respiratory exam: PRESENT: clear to auscultation sacha. ABSENT: rales, rhonchi, wheezes Cardiovascular exam: PRESENT: RRR. ABSENT: diastolic murmur, rubs, systolic murmur GI/Abdominal exam: PRESENT: normal bowel sounds, soft, other - midline jennifer in place. ABSENT: distended, guarding, mass, organolmegaly, rebound, tenderness Rectal exam: PRESENT: deferred Extremities exam: PRESENT: full ROM. ABSENT: calf tenderness, clubbing, pedal edema Neurological exam: PRESENT: alert, awake, oriented to person, oriented to place , oriented to time, oriented to situation, CN II-XII grossly intact. ABSENT: motor sensory deficit Psychiatric exam: PRESENT: appropriate affect, normal mood. ABSENT: homicidal ideation, suicidal ideation Skin exam: PRESENT: dry, intact, warm. ABSENT: cyanosis, rash Results Laboratory Results: 12/19/17 04:55 12/19/17 04:55 12/19/17 12/19/17 12/19/17 04:55 04:55 06:15 WBC 8.7 RBC 3.29 L Hgb 10.6 L Hct 31.1 L MCV 95 MCH 32.2 MCHC 34.1 RDW 13.1 Plt Count 247 Seg Neutrophils % Not Reportable Lymphocytes % Not Reportable Monocytes % Not Reportable Eosinophils % Not Reportable Basophils % Not Reportable Absolute Neutrophils Not Reportable Absolute Lymphocytes Not Reportable Absolute Monocytes Not Reportable Absolute Eosinophils Not Reportable Absolute Basophils Not Reportable Carbonic Acid 1.03 L HCO3/H2CO3 Ratio 24:1 ABG pH 7.48 H ABG pCO2 34.1 L ABG pO2 50.8 L ABG HCO3 25.1 ABG O2 Saturation 88.9 L ABG Base Excess 1.9 FiO2 ROOM AIR Sodium 140.2 Potassium 3.5 L Chloride 110 H Carbon Dioxide 24 Anion Gap 6 BUN 10 Creatinine 0.61 Est GFR ( Amer) > 60 Est GFR (Non-Af Amer) > 60 Glucose 99 Calcium 8.2 L 12/13/17 12/13/17 12/14/17 12:33 18:36 00:30 Troponin I 0.021 0.018 0.020 NT-Pro-B Natriuret Pep 12/15/17 12/16/17 06:18 03:45 Troponin I NT-Pro-B Natriuret Pep 4580 H 4980 H Impressions: Abdomen/Pelvis CT 12/12/17 00:00 IMPRESSION: CT FINDINGS COMPATIBLE WITH HIGH GRADE DISTAL SMALL BOWEL OBSTRUCTION WITH TRANSITION POINT IN THE RIGHT LOWER QUADRANT. ADDITIONAL NOTE MADE OF INFLAMMATION INVOLVING THE TERMINAL ILEUM SUSPICIOUS FOR INFECTIOUS OR INFLAMMATORY BOWEL DISEASE. CORRELATE WITH PATIENT'S CLINICAL HISTORY. SMALL LEFT PLEURAL EFFUSION IN NODULAR INFLAMMATORY CHANGE INVOLVING THE OMENTUM PRESUMABLY REACTIVE TO OBSTRUCTION. Chest X-Ray 12/15/17 06:00 IMPRESSION: Left retrocardiac consolidation atelectasis versus pneumonia Assessment & Plan - Diagnosis (1) UTI (urinary tract infection) Is this a current diagnosis for this admission?: Yes Plan: E. coli UTI. Treatment completed with ceftriaxone. (2) Ambulatory dysfunction Is this a current diagnosis for this admission?: Yes Plan: PT OT consulted plan is for discharge to [facility]. Awaiting placement. (3) Atrial fibrillation Qualifiers: Atrial fibrillation type: persistent Qualified Code(s): I48.1 - Persistent atrial fibrillation Is this a current diagnosis for this admission?: Yes (4) Dementia Qualifiers: Dementia type: unspecified type Dementia behavioral disturbance: without behavioral disturbance Qualified Code(s): F03.90 - Unspecified dementia without behavioral disturbance Is this a current diagnosis for this admission?: Yes Plan: Patient now having some delirium along with her dementia. Patient restarted on her home Namenda. Patient normally takes benzos and SSRI scheduled. These should not be abruptly discontinued if possible. Patient withdrawaling again as she is seeing worms. Will put patient back on her SSRI and benzo. (5) Glaucoma Qualifiers: Open angle glaucoma type: unspecified type Laterality: unspecified laterality Glaucoma stage: stage unspecified Is this a current diagnosis for this admission?: Yes Plan: Continue medicated eyedrops. (6) Respiratory failure Is this a current diagnosis for this admission?: Yes Plan: Intubated for the procedure and extubated on 14 December. Patient has not had any further complications. Patient now with cough. Will start patient on anti tussive. (7) Small bowel obstruction Is this a current diagnosis for this admission?: Yes Plan: Patient is status post exploratory lap with lysis of adhesions and resection of bowel. Patient is currently doing well. Patient is having bowel movements without the use of suppositories. Patient also tolerating diet. Patient however is not eating very much however I do not believe patient was a big eater at baseline. (8) Volume overload Qualifiers: Hypervolemia type: unspecified Qualified Code(s): E87.70 - Fluid overload, unspecified Is this a current diagnosis for this admission?: Yes Plan: Resolved. - Time Time Spent with patient: Less than 15 minutes Anticipated discharge: SNF Within: when bed available
[2017-12-20] MEDS: DIPHENHYDRAMINE HCL 50 MG/ML VIAL IV PRN (00:15)
[2017-12-20] MEDS: DILTIAZEM HCL 60 MG TABLET PO SCH ×4 (00:15→21:08)
[2017-12-20] MEDS: LEVALBUTEROL HCL NEB 0.63 MG/3 ML AMPUL NEB SCH ×3 (00:42→15:49)
[2017-12-20] MEDS ORDERED: HALOPERIDOL LACTATE INJ 5 MG/1 ML VIAL IV PRN (01:17)
--- NOTE | 2017-12-20 01:31 | PDOC PROGRESS REPORT ---
Subjective Progress Note for:: 12/20/17 Subjective:: Patient is w/o c/o. has good bowel fx. Reason For Visit: SMALL BOWEL OBSTRUCTION Physical Exam Vital Signs: Temp Pulse Resp BP Pulse Ox 98.6 F 95 15 120/59 L 95 12/19/17 15:46 12/20/17 00:43 12/20/17 00:43 12/19/17 15:46 12/20/17 00:46 Intake & Output 12/18/17 12/19/17 12/20/17 06:59 06:59 06:59 Intake Total 1160 428 663 Output Total 1050 1050 500 Balance 110 -622 163 Weight 64.3 kg 63.9 kg General appearance: PRESENT: no acute distress Respiratory exam: PRESENT: clear to auscultation sacha Cardiovascular exam: PRESENT: RRR GI/Abdominal exam: PRESENT: normal bowel sounds, soft. ABSENT: guarding, rebound, tenderness Results Laboratory Results: 12/19/17 04:55 12/19/17 04:55 12/19/17 12/19/17 12/19/17 04:55 04:55 06:15 WBC 8.7 RBC 3.29 L Hgb 10.6 L Hct 31.1 L MCV 95 MCH 32.2 MCHC 34.1 RDW 13.1 Plt Count 247 Seg Neutrophils % Not Reportable Lymphocytes % Not Reportable Monocytes % Not Reportable Eosinophils % Not Reportable Basophils % Not Reportable Absolute Neutrophils Not Reportable Absolute Lymphocytes Not Reportable Absolute Monocytes Not Reportable Absolute Eosinophils Not Reportable Absolute Basophils Not Reportable Carbonic Acid 1.03 L HCO3/H2CO3 Ratio 24:1 ABG pH 7.48 H ABG pCO2 34.1 L ABG pO2 50.8 L ABG HCO3 25.1 ABG O2 Saturation 88.9 L ABG Base Excess 1.9 FiO2 ROOM AIR Sodium 140.2 Potassium 3.5 L Chloride 110 H Carbon Dioxide 24 Anion Gap 6 BUN 10 Creatinine 0.61 Est GFR ( Amer) > 60 Est GFR (Non-Af Amer) > 60 Glucose 99 Calcium 8.2 L 12/13/17 12/13/17 12/14/17 12:33 18:36 00:30 Troponin I 0.021 0.018 0.020 NT-Pro-B Natriuret Pep 01/22/18 01/23/18 06:18 03:45 Troponin I NT-Pro-B Natriuret Pep 4580 H 4980 H Impressions: Abdomen/Pelvis CT 12/12/17 00:00 IMPRESSION: CT FINDINGS COMPATIBLE WITH HIGH GRADE DISTAL SMALL BOWEL OBSTRUCTION WITH TRANSITION POINT IN THE RIGHT LOWER QUADRANT. ADDITIONAL NOTE MADE OF INFLAMMATION INVOLVING THE TERMINAL ILEUM SUSPICIOUS FOR INFECTIOUS OR INFLAMMATORY BOWEL DISEASE. CORRELATE WITH PATIENT'S CLINICAL HISTORY. SMALL LEFT PLEURAL EFFUSION IN NODULAR INFLAMMATORY CHANGE INVOLVING THE OMENTUM PRESUMABLY REACTIVE TO OBSTRUCTION. Chest X-Ray 12/15/17 06:00 IMPRESSION: Left retrocardiac consolidation atelectasis versus pneumonia Assessment & Plan - Diagnosis (1) Small bowel obstruction Is this a current diagnosis for this admission?: Yes - Plan Summary Plan Summary: Awaiting bed in [place] of family's choice.
[2017-12-20 05:36] LABS: HEMATOCRIT 30.9 % (36.0-47.0); HEMOGLOBIN 10.5 g/dL (12.0-15.5); MEAN CORPUSCULAR HEMOGLOBIN 32.3 pg (27.0-33.4); MEAN CORPUSCULAR HGB CONC 34.1 g/dL (32.0-36.0); MEAN CORPUSCULAR VOLUME 95 fl (80-97); PLATELET COUNT 254 10^3/uL (150-450); RED BLOOD COUNT 3.26 10^6/uL (3.72-5.28); RED CELL DISTRIBUTION WIDTH 13.1 % (11.5-14.0); WHITE BLOOD COUNT 8.5 10^3/uL (4.0-10.5)
[2017-12-20 05:55] LABS: ANION GAP 5 (5-19); BLOOD UREA NITROGEN 8 mg/dL (7-20); CARBON DIOXIDE 27 mmol/L (22-30); CHLORIDE 108 mmol/L (98-107); GLUCOSE 90 mg/dL (75-110); POTASSIUM 3.7 mmol/L (3.6-5.0); SODIUM 140.4 mmol/L (137-145)
[2017-12-20 06:19] LABS: ABSOLUTE MONOCYTES # (MANUAL) 1.2 10^3/uL (0.1-1.4); ABSOLUTE NEUTROPHILS# (MANUAL) 6.3 10^3/uL (1.7-8.2); BASOPHILS % (MANUAL) 0 % (0-2); EOSINOPHILS % (MANUAL) 0 % (0-6); LYMPHOCYTES % (MANUAL) 4 % (13-45); MONOCYTES % (MANUAL) 14 % (3-13); SEGMENTED NEUTROPHILS % (MAN) 74 % (42-78); TOTAL CELLS COUNTED 100; TOXIC GRANULATION SLIGHT
[2017-12-20 06:20] LABS: TOXIC VACUOLATION PRESENT
[2017-12-20 06:21] LABS: BURR CELLS SLIGHT; OVALOCYTES 1+; PLATELET COMMENT ADEQUATE; POIKILOCYTOSIS 1+
[2017-12-20] MEDS: BENZONATATE 100 MG CAPSULE PO SCH ×3 (06:24→21:08)
[2017-12-20] MEDS ORDERED: POTASSIUM CHLORIDE 20 MEQ/15 ML UDCUP PO ONE (07:52)
[2017-12-20] MEDS: SERTRALINE HCL 50 MG TABLET PO SCH (09:24)
[2017-12-20] MEDS: MEMANTINE HCL 10 MG TABLET PO SCH (09:24)
[2017-12-20] MEDS: BRIMONIDINE TARTRATE 0.2% OPH SOLN 5 ML OD SCH ×2 (09:25→21:08)
[2017-12-20] MEDS: ENOXAPARIN SODIUM INJ 30 MG/0.3 ML DISP.SYRIN SUBCUT SCH (09:25)
[2017-12-20] MEDS: BISACODYL 10 MG SUPP.RECT PR SCH (09:26)
[2017-12-20] MEDS ORDERED: LORAZEPAM 0.5 MG TABLET PO SCH (10:00)
--- NOTE | 2017-12-20 12:21 | PDOC PROGRESS REPORT ---
Subjective Progress Note for:: 12/20/17 Subjective:: Patient noted to be much improved. Telemetry actually shows sinus rhythm. Patient is more verbal. Review of systems: Rest review of systems negative. Medications: Medications have been reviewed. Reason For Visit: SMALL BOWEL OBSTRUCTION Physical Exam Vital Signs: Temp Pulse Resp BP Pulse Ox 98.3 F 87 18 139/65 H 91 L 12/20/17 07:47 12/20/17 07:58 12/20/17 07:58 12/20/17 07:47 12/20/17 07:58 Intake & Output 12/19/17 12/20/17 12/21/17 06:59 06:59 06:59 Intake Total 428 663 Output Total 1050 950 Balance -622 -287 Weight 63.9 kg Exam: GENERAL: well-nourished and in no acute distress. Patient is alert. Patient is verbal and does answers appropriately to some questions. HEAD: Atraumatic, normocephalic. EYES: Pupils equal round and reactive to light, extraocular movements intact, sclera anicteric, conjunctiva are normal. ENT: TMs normal, nares patent, oropharynx clear without exudates. Moist mucous membranes. No oral ulcerations or bleeding gums noted NECK: supple without lymphadenopathy or JVD. Trachea is central. No cervical or axillary lymphadenopathy noted. Carotids are 2+ LUNGS: Breath sounds bibasilar fine crackles at bases. No significant dullness noted. CHEST: Palpation of chest wall shows no significant chest wall tenderness. 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 ABDOMEN: Soft, no significant tenderness appreciated, normoactive bowel sounds. No guarding, no rebound. No rigidity noted . No masses appreciated. EXTREMITIES: Pedal pulses are 1-2+, no calf tenderness noted, Trace + pedal edema noted. No clubbing or cyanosis. NEUROLOGICAL: Patient is alert but is not able to participate fully participate in neurological exam PSYCH: Patient cannot participate in a neurologic and psych exam because general debility and some underlying dementia. SKIN: No significant ecchymosis, rash, ulcerations or signs of pruritus noted. MUSCULOSKELETAL EXAM: No significant joint swelling noted. Results Laboratory Results: 12/20/17 04:55 12/20/17 04:55 12/20/17 12/20/17 12/20/17 04:55 04:55 04:55 WBC 8.5 RBC 3.26 L Hgb 10.5 L Hct 30.9 L MCV 95 MCH 32.3 MCHC 34.1 RDW 13.1 Plt Count 254 Seg Neutrophils % Not Reportable Lymphocytes % Not Reportable Monocytes % Not Reportable Eosinophils % Not Reportable Basophils % Not Reportable Absolute Neutrophils Not Reportable Absolute Lymphocytes Not Reportable Absolute Monocytes Not Reportable Absolute Eosinophils Not Reportable Absolute Basophils Not Reportable Sodium 140.4 Potassium 3.7 Chloride 108 H Carbon Dioxide 27 Anion Gap 5 BUN 8 Creatinine 0.59 Est GFR ( Amer) > 60 Est GFR (Non-Af Amer) > 60 Glucose 90 Calcium 8.0 L Magnesium 1.7 12/13/17 12/13/17 12/14/17 12:33 18:36 00:30 Troponin I 0.021 0.018 0.020 NT-Pro-B Natriuret Pep 12/15/17 12/16/17 06:18 03:45 Troponin I NT-Pro-B Natriuret Pep 4580 H 4980 H Impressions: Abdomen/Pelvis CT 12/12/17 00:00 IMPRESSION: CT FINDINGS COMPATIBLE WITH HIGH GRADE DISTAL SMALL BOWEL OBSTRUCTION WITH TRANSITION POINT IN THE RIGHT LOWER QUADRANT. ADDITIONAL NOTE MADE OF INFLAMMATION INVOLVING THE TERMINAL ILEUM SUSPICIOUS FOR INFECTIOUS OR INFLAMMATORY BOWEL DISEASE. CORRELATE WITH PATIENT'S CLINICAL HISTORY. SMALL LEFT PLEURAL EFFUSION IN NODULAR INFLAMMATORY CHANGE INVOLVING THE OMENTUM PRESUMABLY REACTIVE TO OBSTRUCTION. Chest X-Ray 12/15/17 06:00 IMPRESSION: Left retrocardiac consolidation atelectasis versus pneumonia Assessment & Plan - Diagnosis (1) Atrial fibrillation Qualifiers: Atrial fibrillation type: persistent Qualified Code(s): I48.1 - Persistent atrial fibrillation Is this a current diagnosis for this admission?: Yes (2) Respiratory failure Is this a current diagnosis for this admission?: Yes (3) Small bowel obstruction Is this a current diagnosis for this admission?: Yes (4) Dementia Qualifiers: Dementia type: unspecified type Dementia behavioral disturbance: without behavioral disturbance Qualified Code(s): F03.90 - Unspecified dementia without behavioral disturbance Is this a current diagnosis for this admission?: Yes - Notes Notes: Patient hasPatient has maintained sinus rhythm for last several days. As regards to respiratory failure, patient noted to be stable and maintaining good oxygen saturation with some oxygen supplementation. Small bowel obstruction: Patient is status post surgery and has improved. Dementia, it is a chronic problem. Will sign off. Please reconsult if needed. - Time Time with patient: 15-25 minutes Medications reviewed and adjusted accordingly: Yes
--- NOTE | 2017-12-20 12:24 | PDOC PROGRESS REPORT ---
Subjective Progress Note for:: 12/18/17 Subjective:: Patient's at bedside. Patient noted to be in mild respiratory distress but maintaining good O2 sat. Pt is denying any chest arm or neck discomfort. Patient denying any PND, orthopnea. Patient denied any sustained palpitations, dizziness, syncope, near syncope. Patient denying any fever chills. Patient denying any other significant discomfort. Patient is maintaining atrial fibrillation heart rates somewhat on the high side , but reasonably well-controlled. Review of systems: Rest review of systems negative. Medications: Medications have been reviewed. Reason For Visit: SMALL BOWEL OBSTRUCTION Physical Exam Vital Signs: Temp Pulse Resp BP Pulse Ox 97.9 F 90 20 135/60 H 95 12/18/17 16:45 12/18/17 16:45 12/18/17 16:45 12/18/17 16:45 12/18/17 16:45 Intake & Output 12/17/17 12/18/17 12/19/17 06:59 06:59 06:59 Intake Total 1550 1160 200 Output Total 985 1050 650 Balance 565 110 -450 Weight 64 kg 64.3 kg Exam: GENERAL: Debilitated and mild respiratory distress. Patient is alert but not oriented to place time or person. HEAD: Atraumatic, normocephalic. EYES: Pupils equal round and reactive to light, extraocular movements intact, sclera anicteric, conjunctiva are normal. ENT: TMs normal, nares patent, oropharynx clear without exudates. Moist mucous membranes. No oral ulcerations or bleeding gums noted NECK: supple without lymphadenopathy or JVD. Trachea is central. No cervical or axillary lymphadenopathy noted. Carotids are 2+ LUNGS: Breath sounds bibasilar fine crackles at bases. No significant dullness noted. CHEST: Palpation of chest wall shows no significant chest wall tenderness. 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 ABDOMEN: Soft, no significant tenderness appreciated, normoactive bowel sounds. No guarding, no rebound. No rigidity noted . No masses appreciated. EXTREMITIES: Pedal pulses are 1-2+, no calf tenderness noted, Trace + pedal edema noted. No clubbing or cyanosis. NEUROLOGICAL: Patient is alert but is not able to participate in neurological exam because of patient's current mental status PSYCH: Patient cannot participate in a neurologic and psych exam because of the patient's current mental status SKIN: No significant ecchymosis, rash, ulcerations or signs of pruritus noted. MUSCULOSKELETAL EXAM: No significant joint swelling noted.. Results Laboratory Results: 12/18/17 04:55 12/18/17 04:55 12/18/17 12/18/17 04:55 04:55 WBC 9.0 RBC 3.30 L Hgb 10.7 L Hct 31.4 L MCV 95 MCH 32.4 MCHC 34.0 RDW 13.4 Plt Count 240 Seg Neutrophils % Not Reportable Lymphocytes % Not Reportable Monocytes % Not Reportable Eosinophils % Not Reportable Basophils % Not Reportable Absolute Neutrophils Not Reportable Absolute Lymphocytes Not Reportable Absolute Monocytes Not Reportable Absolute Eosinophils Not Reportable Absolute Basophils Not Reportable Sodium 142.8 Potassium 3.7 Chloride 113 H Carbon Dioxide 23 Anion Gap 7 BUN 8 Creatinine 0.60 Est GFR ( Amer) > 60 Est GFR (Non-Af Amer) > 60 Glucose 97 Calcium 7.9 L 12/13/17 12/13/17 12/14/17 12:33 18:36 00:30 Troponin I 0.021 0.018 0.020 NT-Pro-B Natriuret Pep 12/15/17 12/16/17 06:18 03:45 Troponin I NT-Pro-B Natriuret Pep 4580 H 4980 H Impressions: Abdomen/Pelvis CT 12/12/17 00:00 IMPRESSION: CT FINDINGS COMPATIBLE WITH HIGH GRADE DISTAL SMALL BOWEL OBSTRUCTION WITH TRANSITION POINT IN THE RIGHT LOWER QUADRANT. ADDITIONAL NOTE MADE OF INFLAMMATION INVOLVING THE TERMINAL ILEUM SUSPICIOUS FOR INFECTIOUS OR INFLAMMATORY BOWEL DISEASE. CORRELATE WITH PATIENT'S CLINICAL HISTORY. SMALL LEFT PLEURAL EFFUSION IN NODULAR INFLAMMATORY CHANGE INVOLVING THE OMENTUM PRESUMABLY REACTIVE TO OBSTRUCTION. Chest X-Ray 12/15/17 06:00 IMPRESSION: Left retrocardiac consolidation atelectasis versus pneumonia Assessment & Plan - Diagnosis (1) Atrial fibrillation Qualifiers: Atrial fibrillation type: persistent Qualified Code(s): I48.1 - Persistent atrial fibrillation Is this a current diagnosis for this admission?: Yes (2) Respiratory failure Is this a current diagnosis for this admission?: Yes (3) Small bowel obstruction Is this a current diagnosis for this admission?: Yes (4) Dementia Qualifiers: Dementia type: unspecified type Dementia behavioral disturbance: without behavioral disturbance Qualified Code(s): F03.90 - Unspecified dementia without behavioral disturbance Is this a current diagnosis for this admission?: Yes - Notes Notes: Patient noted to be in mild respiratory distress. Patient getting oxygen supplementation and some bronchodilator therapy. Patient however noted to be maintaining good O2 saturation. As regards small bowel obstruction this seems to have improved status post surgery. Dementia: This is a chronic problem. Pneumonia: Continue antibiotic therapy. Hypokalemia: Potassium improved. As regards atrial fibrillation, patient is maintaining sinus rhythm. Do not feel chronic anticoagulation is needed at this point. - Time Time with patient: 15-25 minutes - CODE STATUS was discussed, patient remains full code. Surrogate decision-maker unchanged. Multiple medical problems were addressed. More than 50% of the time spent coordinating care, discussing management plans with involved caregivers. Management plans discussed with involved personnels. Medical decision making was of moderate to high complexity , patient's has multiple comorbidities. Medications reviewed and adjusted accordingly: Yes
--- NOTE | 2017-12-20 13:44 | PDOC PROGRESS REPORT ---
Subjective Progress Note for:: 12/20/17 Subjective:: Patient is a 87-year-old female with a history of dementia and glaucoma who presented with a 3 day history of abdominal pain, obstipation and nausea and vomiting and was found to have a significant small bowel mechanical obstruction. Patient taken to the OR and is status post ex-exploratory laparotomy with lysis of adhesions and bowel resection. Patient is doing well. Sitting up in bed feeding herself. Patient complaining of neck pain. Reason For Visit: SMALL BOWEL OBSTRUCTION Physical Exam Vital Signs: Temp Pulse Resp BP Pulse Ox 98.3 F 87 18 139/65 H 91 L 12/20/17 07:47 12/20/17 07:58 12/20/17 07:58 12/20/17 07:47 12/20/17 07:58 Intake & Output 12/19/17 12/20/17 12/21/17 06:59 06:59 06:59 Intake Total 428 663 Output Total 1050 950 Balance -622 -287 Weight 63.9 kg General appearance: PRESENT: no acute distress, well-developed, other - elderly Head exam: PRESENT: normocephalic Eye exam: PRESENT: EOMI. ABSENT: scleral icterus Ear exam: PRESENT: normal external ear exam Mouth exam: PRESENT: moist Neck exam: ABSENT: carotid bruit, JVD, lymphadenopathy, thyromegaly Respiratory exam: PRESENT: clear to auscultation sacha. ABSENT: rales, rhonchi, wheezes Cardiovascular exam: PRESENT: RRR. ABSENT: diastolic murmur, rubs, systolic murmur GI/Abdominal exam: PRESENT: normal bowel sounds, soft, other - abdominal jennifer midline intact. ABSENT: distended, guarding, mass, organolmegaly, rebound, tenderness Rectal exam: PRESENT: deferred Gentrourinary exam: PRESENT: indwelling catheter Extremities exam: PRESENT: full ROM. ABSENT: calf tenderness, clubbing, pedal edema Neurological exam: PRESENT: alert, awake, oriented to person, oriented to place , oriented to time, oriented to situation, CN II-XII grossly intact. ABSENT: motor sensory deficit Psychiatric exam: PRESENT: appropriate affect, normal mood. ABSENT: homicidal ideation, suicidal ideation Skin exam: PRESENT: dry, intact, warm. ABSENT: cyanosis, rash Results Laboratory Results: 12/20/17 04:55 12/20/17 04:55 12/20/17 12/20/17 12/20/17 04:55 04:55 04:55 WBC 8.5 RBC 3.26 L Hgb 10.5 L Hct 30.9 L MCV 95 MCH 32.3 MCHC 34.1 RDW 13.1 Plt Count 254 Seg Neutrophils % Not Reportable Lymphocytes % Not Reportable Monocytes % Not Reportable Eosinophils % Not Reportable Basophils % Not Reportable Absolute Neutrophils Not Reportable Absolute Lymphocytes Not Reportable Absolute Monocytes Not Reportable Absolute Eosinophils Not Reportable Absolute Basophils Not Reportable Sodium 140.4 Potassium 3.7 Chloride 108 H Carbon Dioxide 27 Anion Gap 5 BUN 8 Creatinine 0.59 Est GFR ( Amer) > 60 Est GFR (Non-Af Amer) > 60 Glucose 90 Calcium 8.0 L Magnesium 1.7 12/13/17 12/13/17 12/14/17 12:33 18:36 00:30 Troponin I 0.021 0.018 0.020 NT-Pro-B Natriuret Pep 12/15/17 12/16/17 06:18 03:45 Troponin I NT-Pro-B Natriuret Pep 4580 H 4980 H Impressions: Abdomen/Pelvis CT 12/12/17 00:00 IMPRESSION: CT FINDINGS COMPATIBLE WITH HIGH GRADE DISTAL SMALL BOWEL OBSTRUCTION WITH TRANSITION POINT IN THE RIGHT LOWER QUADRANT. ADDITIONAL NOTE MADE OF INFLAMMATION INVOLVING THE TERMINAL ILEUM SUSPICIOUS FOR INFECTIOUS OR INFLAMMATORY BOWEL DISEASE. CORRELATE WITH PATIENT'S CLINICAL HISTORY. SMALL LEFT PLEURAL EFFUSION IN NODULAR INFLAMMATORY CHANGE INVOLVING THE OMENTUM PRESUMABLY REACTIVE TO OBSTRUCTION. Chest X-Ray 12/15/17 06:00 IMPRESSION: Left retrocardiac consolidation atelectasis versus pneumonia Assessment & Plan - Diagnosis (1) UTI (urinary tract infection) Is this a current diagnosis for this admission?: Yes Plan: E. coli UTI. Treatment completed with ceftriaxone. (2) Ambulatory dysfunction Is this a current diagnosis for this admission?: Yes Plan: PT OT consulted plan is for discharge to [facility]. Awaiting placement. (3) Atrial fibrillation Qualifiers: Atrial fibrillation type: persistent Qualified Code(s): I48.1 - Persistent atrial fibrillation Is this a current diagnosis for this admission?: Yes Plan: Appears to be new onset. Cardiology consulted. Now in sinus rhythm. Continue oral diltiazem 60 mg every 6 by cardiology. Agree with cardiology that patient is not a good candidate for anticoagulation due to her dementia and marked debility and risk of fall. HR in the 80s. (4) Dementia Qualifiers: Dementia type: unspecified type Dementia behavioral disturbance: without behavioral disturbance Qualified Code(s): F03.90 - Unspecified dementia without behavioral disturbance Is this a current diagnosis for this admission?: Yes Plan: Patient now having some delirium along with her dementia. Patient restarted on her home Namenda. Patient normally takes benzos and SSRI scheduled. These should not be abruptly discontinued if possible. Patient withdrawaling again as she is seeing worms. Will put patient back on her SSRI and benzo. (5) Glaucoma Qualifiers: Open angle glaucoma type: unspecified type Laterality: unspecified laterality Glaucoma stage: stage unspecified Is this a current diagnosis for this admission?: Yes Plan: Continue medicated eyedrops. (6) Respiratory failure Is this a current diagnosis for this admission?: Yes Plan: Intubated for the procedure and extubated on 14 December. Patient has not had any further complications. Patient now with cough. Will start patient on anti tussive. (7) Small bowel obstruction Is this a current diagnosis for this admission?: Yes Plan: Patient is status post exploratory lap with lysis of adhesions and resection of bowel. Patient is currently doing well. Patient is having bowel movements without the use of suppositories. Patient also tolerating diet. (8) Volume overload Qualifiers: Hypervolemia type: unspecified Qualified Code(s): E87.70 - Fluid overload, unspecified Is this a current diagnosis for this admission?: Yes Plan: Resolved. (9) Neck pain Is this a current diagnosis for this admission?: Yes Plan: PRN NSAID and heating pad. - Time Time Spent with patient: Less than 15 minutes Anticipated discharge: SNF Within: when bed available
[2017-12-20] MEDS ORDERED: LORAZEPAM 0.5 MG TABLET PO ONE (14:00)
[2017-12-20] MEDS: LATANOPROST 0.005% OPH SOLN 2.5 ML OU SCH (18:41)
[2017-12-20] MEDS: HALOPERIDOL LACTATE INJ 5 MG/1 ML VIAL IV PRN (18:43)
[2017-12-20] MEDS: LORAZEPAM 0.5 MG TABLET PO SCH (21:08)
[2017-12-21] MEDS: LEVALBUTEROL HCL NEB 0.63 MG/3 ML AMPUL NEB SCH ×3 (00:15→16:01)
[2017-12-21] MEDS: DILTIAZEM HCL 60 MG TABLET PO SCH ×5 (00:43→23:22)
[2017-12-21] MEDS: BENZONATATE 100 MG CAPSULE PO SCH ×3 (10:33→21:14)
[2017-12-21] MEDS: SERTRALINE HCL 50 MG TABLET PO SCH (10:51)
[2017-12-21] MEDS: BRIMONIDINE TARTRATE 0.2% OPH SOLN 5 ML OD SCH ×2 (10:52→21:19)
[2017-12-21] MEDS: ENOXAPARIN SODIUM INJ 30 MG/0.3 ML DISP.SYRIN SUBCUT SCH (10:52)
[2017-12-21] MEDS: MEMANTINE HCL 10 MG TABLET PO SCH (10:52)
[2017-12-21] MEDS: IBUPROFEN 400 MG TABLET PO PRN (11:05)
--- NOTE | 2017-12-21 12:41 | PDOC PROGRESS REPORT ---
Subjective Progress Note for:: 12/21/17 Subjective:: No complaints. Eating regular diet. BM positive. Reason For Visit: SMALL BOWEL OBSTRUCTION Post op day # 9. Patient seen with and son. Awaiting placement. Return of bowel function. Physical Exam Vital Signs: Temp Pulse Resp BP Pulse Ox 98.7 F 91 16 133/52 H 92 12/21/17 07:43 12/21/17 07:54 12/21/17 07:54 12/21/17 07:43 12/21/17 07:54 Intake & Output 12/20/17 12/21/17 12/22/17 06:59 06:59 06:59 Intake Total 663 338 Output Total 950 1500 Balance -287 -1162 Weight 64.2 kg 64.3 kg General appearance: PRESENT: no acute distress Respiratory exam: PRESENT: clear to auscultation sacha. ABSENT: accessory muscle use Cardiovascular exam: PRESENT: RRR GI/Abdominal exam: PRESENT: normal bowel sounds, other - Incison is clean, dry and intact. ABSENT: distended, guarding, tenderness Extremities exam: ABSENT: tenderness Results Laboratory Results: 12/20/17 04:55 12/20/17 04:55 12/13/17 12/13/17 12/14/17 12:33 18:36 00:30 Troponin I 0.021 0.018 0.020 NT-Pro-B Natriuret Pep 12/15/17 12/16/17 06:18 03:45 Troponin I NT-Pro-B Natriuret Pep 4580 H 4980 H Impressions: Abdomen/Pelvis CT 12/12/17 00:00 IMPRESSION: CT FINDINGS COMPATIBLE WITH HIGH GRADE DISTAL SMALL BOWEL OBSTRUCTION WITH TRANSITION POINT IN THE RIGHT LOWER QUADRANT. ADDITIONAL NOTE MADE OF INFLAMMATION INVOLVING THE TERMINAL ILEUM SUSPICIOUS FOR INFECTIOUS OR INFLAMMATORY BOWEL DISEASE. CORRELATE WITH PATIENT'S CLINICAL HISTORY. SMALL LEFT PLEURAL EFFUSION IN NODULAR INFLAMMATORY CHANGE INVOLVING THE OMENTUM PRESUMABLY REACTIVE TO OBSTRUCTION. Chest X-Ray 12/15/17 06:00 IMPRESSION: Left retrocardiac consolidation atelectasis versus pneumonia Assessment & Plan - Diagnosis (1) Small bowel obstruction due to adhesions Is this a current diagnosis for this admission?: Yes - Plan Summary Plan Summary: [place] regular diet pending placement.
--- NOTE | 2017-12-21 12:47 | PDOC PROGRESS REPORT ---
Subjective Progress Note for:: 12/21/17 Subjective:: The patient is an 87-year-old female admitted for small bowel obstruction. She is doing well and we are waiting to place the patient in a skilled facility. Reason For Visit: SMALL BOWEL OBSTRUCTION Physical Exam Vital Signs: Temp Pulse Resp BP Pulse Ox 98.7 F 91 16 133/52 H 92 12/21/17 07:43 12/21/17 07:54 12/21/17 07:54 12/21/17 07:43 12/21/17 07:54 Intake & Output 12/20/17 12/21/17 12/22/17 06:59 06:59 06:59 Intake Total 663 338 Output Total 950 1500 Balance -287 -1162 Weight 64.2 kg 64.3 kg Additional comments: The patient is an elderly and frail female. She was not very cooperative with me this morning. She was awake but did not answer my questions appropriately and asked me to stop examining her because my hands were too cold. Her lungs were noted to be clear to auscultation bilaterally. Her cardiac exam is regular without murmurs, gallops or rubs. The abdomen is soft and flat. Bowel sounds are noted in the lower quadrants. Her lower extremities were unremarkable. She has trace edema. Skin is warm dry and intact without lesions or rashes. Results Laboratory Results: 12/20/17 04:55 12/20/17 04:55 12/13/17 12/13/17 12/14/17 12:33 18:36 00:30 Troponin I 0.021 0.018 0.020 NT-Pro-B Natriuret Pep 12/15/17 12/16/17 06:18 03:45 Troponin I NT-Pro-B Natriuret Pep 4580 H 4980 H Impressions: Abdomen/Pelvis CT 12/12/17 00:00 IMPRESSION: CT FINDINGS COMPATIBLE WITH HIGH GRADE DISTAL SMALL BOWEL OBSTRUCTION WITH TRANSITION POINT IN THE RIGHT LOWER QUADRANT. ADDITIONAL NOTE MADE OF INFLAMMATION INVOLVING THE TERMINAL ILEUM SUSPICIOUS FOR INFECTIOUS OR INFLAMMATORY BOWEL DISEASE. CORRELATE WITH PATIENT'S CLINICAL HISTORY. SMALL LEFT PLEURAL EFFUSION IN NODULAR INFLAMMATORY CHANGE INVOLVING THE OMENTUM PRESUMABLY REACTIVE TO OBSTRUCTION. Chest X-Ray 12/15/17 06:00 IMPRESSION: Left retrocardiac consolidation atelectasis versus pneumonia Assessment & Plan - Diagnosis (1) Ambulatory dysfunction Is this a current diagnosis for this admission?: Yes Plan: Continue physical therapy. Plans are placement into skilled facility to regain strength. (2) Atrial fibrillation Qualifiers: Atrial fibrillation type: persistent Qualified Code(s): I48.1 - Persistent atrial fibrillation Is this a current diagnosis for this admission?: Yes Plan: Cardiology has been following. Goal is for rate control. Patient is not a good candidate for anticoagulation. (3) Dementia Qualifiers: Dementia type: unspecified type Dementia behavioral disturbance: without behavioral disturbance Qualified Code(s): F03.90 - Unspecified dementia without behavioral disturbance Is this a current diagnosis for this admission?: Yes Plan: The patient's Namenda has been restarted. In addition, she had evidence of withdrawal when SSRI therapy and benzodiazepines were stopped. These have been restarted. Please note that patient's to chronically use benzodiazepines are at risk of seizures if these medications are abruptly discontinued. Would continue these medications indefinitely. (4) Glaucoma Qualifiers: Open angle glaucoma type: unspecified type Laterality: unspecified laterality Glaucoma stage: stage unspecified Is this a current diagnosis for this admission?: Yes Plan: Continue medicated eyedrops. (5) Respiratory failure Is this a current diagnosis for this admission?: Yes Plan: Resolved. Patient extubated 12/14/2017. (6) Small bowel obstruction Is this a current diagnosis for this admission?: Yes Plan: Status post ex lap with lysis of adhesions and doing well. (7) UTI (urinary tract infection) Is this a current diagnosis for this admission?: Yes Plan: Patient has completed therapy with ceftriaxone. (8) Volume overload Qualifiers: Hypervolemia type: unspecified Qualified Code(s): E87.70 - Fluid overload, unspecified Is this a current diagnosis for this admission?: Yes Plan: Resolved. - Time Time Spent with patient: 15-24 minutes
[2017-12-21] MEDS: LATANOPROST 0.005% OPH SOLN 2.5 ML OU SCH (17:59)
[2017-12-21] MEDS: HALOPERIDOL LACTATE INJ 5 MG/1 ML VIAL IV PRN (21:14)
[2017-12-21] MEDS: LORAZEPAM 0.5 MG TABLET PO SCH (21:14)
[2017-12-22] MEDS: LEVALBUTEROL HCL NEB 0.63 MG/3 ML AMPUL NEB SCH ×4 (00:23→23:55)
[2017-12-22] MEDS: BENZONATATE 100 MG CAPSULE PO SCH ×3 (05:52→22:32)
[2017-12-22] MEDS: DIPHENHYDRAMINE HCL 50 MG/ML VIAL IV PRN ×2 (05:52→22:32)
[2017-12-22] MEDS: DILTIAZEM HCL 60 MG TABLET PO SCH ×3 (05:53→18:24)
[2017-12-22] MEDS: IBUPROFEN 400 MG TABLET PO PRN (05:53)
[2017-12-22] MEDS ORDERED: IPRATROPIUM/ALBUTEROL 0.5-2.5 MG/3 ML AMPUL NEB ONE (10:00)
--- NOTE | 2017-12-22 11:23 | PDOC PROGRESS REPORT ---
Subjective Progress Note for:: 12/22/17 Subjective:: The patient is an 87-year-old female admitted for small bowel obstruction. She is doing well and we are waiting to place the patient in a skilled facility. She had an episode of coughing this morning. I was notified by nursing staff. I ordered a stat portable chest x-ray and 1 DuoNeb. When I got to the patient' s bedside she said that she had a bad coughing episode but when she coughed up some phlegm she felt better. She was not in any distress. Reason For Visit: SMALL BOWEL OBSTRUCTION Physical Exam Vital Signs: Temp Pulse Resp BP Pulse Ox 99.2 F 84 16 142/59 H 97 12/22/17 07:18 12/22/17 08:59 12/22/17 08:59 12/22/17 07:18 12/22/17 08:59 Intake & Output 12/21/17 12/22/17 12/23/17 06:59 06:59 06:59 Intake Total 338 668 Output Total 1500 1300 Balance -1162 -632 Weight 64.3 kg 64.4 kg Additional comments: The patient is an elderly, frail-appearing female. She was not in any distress this morning. She was answering some of my questions very appropriately today. Her facial appearance is unremarkable. Her lungs did demonstrate a few crackles. Her cardiac exam was noted to be regular without murmurs, gallops or rubs. The abdomen is noted to be soft. Bowel sounds are present in the lower quadrants. She does not have guarding rebound noted and there are no hernias or masses present. The lower extremities demonstrate trace to 1+ edema. This is symmetrical. Skin is somewhat dry but otherwise warm and intact without lesions or rashes. Results Laboratory Results: 12/20/17 04:55 12/20/17 04:55 12/13/17 12/13/17 12/14/17 12:33 18:36 00:30 Troponin I 0.021 0.018 0.020 NT-Pro-B Natriuret Pep 12/15/17 12/16/17 06:18 03:45 Troponin I NT-Pro-B Natriuret Pep 4580 H 4980 H Impressions: Abdomen/Pelvis CT 12/12/17 00:00 IMPRESSION: CT FINDINGS COMPATIBLE WITH HIGH GRADE DISTAL SMALL BOWEL OBSTRUCTION WITH TRANSITION POINT IN THE RIGHT LOWER QUADRANT. ADDITIONAL NOTE MADE OF INFLAMMATION INVOLVING THE TERMINAL ILEUM SUSPICIOUS FOR INFECTIOUS OR INFLAMMATORY BOWEL DISEASE. CORRELATE WITH PATIENT'S CLINICAL HISTORY. SMALL LEFT PLEURAL EFFUSION IN NODULAR INFLAMMATORY CHANGE INVOLVING THE OMENTUM PRESUMABLY REACTIVE TO OBSTRUCTION. Assessment & Plan - Diagnosis (1) Ambulatory dysfunction Is this a current diagnosis for this admission?: Yes Plan: Continue physical therapy. Plans are placement into skilled facility to regain strength. (2) Atrial fibrillation Qualifiers: Atrial fibrillation type: persistent Qualified Code(s): I48.1 - Persistent atrial fibrillation Is this a current diagnosis for this admission?: Yes Plan: Cardiology has been following. Goal is for rate control. Patient is not a good candidate for anticoagulation. (3) Dementia Qualifiers: Dementia type: unspecified type Dementia behavioral disturbance: without behavioral disturbance Qualified Code(s): F03.90 - Unspecified dementia without behavioral disturbance Is this a current diagnosis for this admission?: Yes Plan: The patient's Namenda has been restarted. In addition, she had evidence of withdrawal when SSRI therapy and benzodiazepines were stopped. These have been restarted. Please note that patient's to chronically use benzodiazepines are at risk of seizures if these medications are abruptly discontinued. Would continue these medications indefinitely. (4) Glaucoma Qualifiers: Open angle glaucoma type: unspecified type Laterality: unspecified laterality Glaucoma stage: stage unspecified Is this a current diagnosis for this admission?: Yes Plan: Continue medicated eyedrops. (5) Respiratory failure Is this a current diagnosis for this admission?: Yes Plan: Resolved. Patient extubated 12/14/2017. Today's chest x-ray has not yet been interpreted by radiology but does not appear to have any significant pneumonia. There are some pleural effusions at the bases, which is not expected, but the patient does not appear to be volume overloaded at this time. She did respond very well to one DuoNeb. We will continue this as needed and I will look into her swallowing function if needed. (6) Small bowel obstruction Is this a current diagnosis for this admission?: Yes Plan: Status post ex lap with lysis of adhesions and doing well. (7) UTI (urinary tract infection) Is this a current diagnosis for this admission?: Yes Plan: Patient has completed therapy with ceftriaxone. (8) Volume overload Qualifiers: Hypervolemia type: unspecified Qualified Code(s): E87.70 - Fluid overload, unspecified Is this a current diagnosis for this admission?: Yes Plan: Resolved. - Time Time Spent with patient: 15-24 minutes - Plan Summary Plan Summary: The patient is currently admitted to the surgical hospitalist. Plans are underway for placement to a skilled facility.
[2017-12-22] MEDS ORDERED: IPRATROPIUM/ALBUTEROL 0.5-2.5 MG/3 ML AMPUL NEB PRN (11:24)
[2017-12-22] MEDS: SERTRALINE HCL 50 MG TABLET PO SCH (11:25)
[2017-12-22] MEDS: MEMANTINE HCL 10 MG TABLET PO SCH (11:26)
[2017-12-22] MEDS: BRIMONIDINE TARTRATE 0.2% OPH SOLN 5 ML OD SCH ×2 (11:26→22:32)
[2017-12-22] MEDS: ENOXAPARIN SODIUM INJ 30 MG/0.3 ML DISP.SYRIN SUBCUT SCH (11:26)
--- NOTE | 2017-12-22 12:56 | RADIOLOGY REPORT (SQ) ---
EXAM DESCRIPTION: CHEST SINGLE VIEW COMPLETED DATE/TIME: 12/22/2017 9:28 am REASON FOR STUDY: Shortness of Breath COMPARISON: Chest x-ray 12/15/2017. EXAM PARAMETERS: NUMBER OF VIEWS: One view. TECHNIQUE: Single frontal radiographic view of the chest acquired. RADIATION DOSE: NA LIMITATIONS: Patient positioning. FINDINGS: LUNGS AND PLEURA: The patient is rotated and the patient's chin is obscuring the lung apic es. There is blunting of the bilateral costophrenic angle suggestive of small pleural effusions. Th ere is mild diffuse ground-glass opacity in the left lung. No large pneumothorax MEDIASTINUM AND HILAR STRUCTURES: Stable. HEART AND VASCULAR STRUCTURES: The heart is upper normal limit in size. No overt vascular congestion . BONES: Degenerative changes in the spine. HARDWARE: None in the chest. IMPRESSION: Small bilateral pleural effusions. Mild diffuse ground-glass opacity in the left lung, may represent pneumonia or asymmetric edema. TECHNICAL DOCUMENTATION: JOB ID: [id number] [employer]- All Rights Reserved
--- NOTE | 2017-12-22 15:54 | PDOC PROGRESS REPORT ---
Subjective Progress Note for:: 12/22/17 Subjective:: It is postoperative day 10 status post exploratory laparotomy, lysis of adhesions, slow progress, started with physical therapy, tolerating diet Reason For Visit: SMALL BOWEL OBSTRUCTION Physical Exam Vital Signs: Temp Pulse Resp BP Pulse Ox 99.2 F 84 16 142/59 H 97 12/22/17 07:18 12/22/17 08:59 12/22/17 08:59 12/22/17 07:18 12/22/17 08:59 Intake & Output 12/21/17 12/22/17 12/23/17 06:59 06:59 06:59 Intake Total 338 668 357 Output Total 1500 1300 400 Balance -1162 -632 -43 Weight 64.3 kg 64.4 kg General appearance: PRESENT: no acute distress GI/Abdominal exam: PRESENT: other - Soft, nontender; one third of jennifer removed. Results Laboratory Results: 12/20/17 04:55 12/20/17 04:55 12/13/17 12/13/17 12/14/17 12:33 18:36 00:30 Troponin I 0.021 0.018 0.020 NT-Pro-B Natriuret Pep 12/15/17 12/16/17 06:18 03:45 Troponin I NT-Pro-B Natriuret Pep 4580 H 4980 H Impressions: Abdomen/Pelvis CT 12/12/17 00:00 IMPRESSION: CT FINDINGS COMPATIBLE WITH HIGH GRADE DISTAL SMALL BOWEL OBSTRUCTION WITH TRANSITION POINT IN THE RIGHT LOWER QUADRANT. ADDITIONAL NOTE MADE OF INFLAMMATION INVOLVING THE TERMINAL ILEUM SUSPICIOUS FOR INFECTIOUS OR INFLAMMATORY BOWEL DISEASE. CORRELATE WITH PATIENT'S CLINICAL HISTORY. SMALL LEFT PLEURAL EFFUSION IN NODULAR INFLAMMATORY CHANGE INVOLVING THE OMENTUM PRESUMABLY REACTIVE TO OBSTRUCTION. Chest X-Ray 12/22/17 08:49 IMPRESSION: Small bilateral pleural effusions. Mild diffuse ground-glass opacity in the left lung, may represent pneumonia or asymmetric edema. Assessment & Plan - Diagnosis (1) Small bowel obstruction Is this a current diagnosis for this admission?: Yes (2) Small bowel obstruction due to adhesions Is this a current diagnosis for this admission?: Yes Plan: Patient is 10 days status post oratory laparotomy, lysis of adhesions for small bowel obstruction, doing well, slow progress due to advanced age and multiple chronic comorbidities Recommendations: 1. Advance diet as tolerated 2. Discontinue one third of jennifer as discussed above 3. We will transfer patient to care [facility] 4. Patient may follow-up with [facility] in approximately 1 week for lead staple removal.
[2017-12-22] MEDS: LATANOPROST 0.005% OPH SOLN 2.5 ML OU SCH (18:24)
[2017-12-22] MEDS: LORAZEPAM 0.5 MG TABLET PO SCH (22:32)
[2017-12-23] MEDS: DILTIAZEM HCL 60 MG TABLET PO SCH ×4 (00:17→17:55)
[2017-12-23] MEDS: BENZONATATE 100 MG CAPSULE PO SCH ×3 (05:15→21:12)
[2017-12-23] MEDS: IBUPROFEN 400 MG TABLET PO PRN (07:13)
[2017-12-23] MEDS: LEVALBUTEROL HCL NEB 0.63 MG/3 ML AMPUL NEB SCH ×2 (09:24→17:04)
[2017-12-23] MEDS: BRIMONIDINE TARTRATE 0.2% OPH SOLN 5 ML OD SCH ×2 (09:50→21:14)
[2017-12-23] MEDS: SERTRALINE HCL 50 MG TABLET PO SCH (09:50)
[2017-12-23] MEDS: ENOXAPARIN SODIUM INJ 30 MG/0.3 ML DISP.SYRIN SUBCUT SCH (09:50)
[2017-12-23] MEDS: MEMANTINE HCL 10 MG TABLET PO SCH (09:50)
[2017-12-23] MEDS: LATANOPROST 0.005% OPH SOLN 2.5 ML OU SCH (17:55)
[2017-12-23] MEDS: LORAZEPAM 0.5 MG TABLET PO SCH (21:12)
[2017-12-23] MEDS: DIPHENHYDRAMINE HCL 50 MG/ML VIAL IV PRN (21:15)
[2017-12-24] MEDS: DILTIAZEM HCL 60 MG TABLET PO SCH ×5 (00:07→23:40)
[2017-12-24] MEDS: LEVALBUTEROL HCL NEB 0.63 MG/3 ML AMPUL NEB SCH ×4 (00:51→23:44)
[2017-12-24] MEDS: BENZONATATE 100 MG CAPSULE PO SCH ×3 (05:09→21:46)
[2017-12-24] MEDS: BRIMONIDINE TARTRATE 0.2% OPH SOLN 5 ML OD SCH ×2 (10:11→21:46)
[2017-12-24] MEDS: MEMANTINE HCL 10 MG TABLET PO SCH (10:11)
[2017-12-24] MEDS: ENOXAPARIN SODIUM INJ 30 MG/0.3 ML DISP.SYRIN SUBCUT SCH (10:11)
[2017-12-24] MEDS: SERTRALINE HCL 50 MG TABLET PO SCH (10:11)
--- NOTE | 2017-12-24 11:53 | PDOC PROGRESS REPORT ---
Subjective Progress Note for:: 12/24/17 Subjective:: The patient is an 87-year-old female admitted for small bowel obstruction. She is doing well and we are waiting to place the patient in a skilled facility. Her surgery was 12/12/2017. Please note that [facility] hospitalist services were initially the consultants. Now, we are the primary service. At this point time the patient is stable for discharge to skilled facility. Arrangements are being made. Reason For Visit: SMALL BOWEL OBSTRUCTION Physical Exam Vital Signs: Temp Pulse Resp BP Pulse Ox 98.8 F 91 20 133/65 H 96 12/24/17 08:29 12/24/17 09:24 12/24/17 09:24 12/24/17 08:29 12/24/17 09:24 Intake & Output 12/23/17 12/24/17 12/25/17 06:59 06:59 06:59 Intake Total 864 331 Output Total 1050 900 Balance -186 -569 Weight 65.6 kg 63.3 kg Additional comments: The patient appeared to be doing well this morning. She was wide awake. She is talkative, but, does not always make sense. She was eating her breakfast with minimal assistance. The patient was noted to have a few scattered crackles in her lung brizuela. Her cardiac exam is regular without murmurs, gallops or rubs. The abdomen is soft and flat. Bowel sounds are present in the lower quadrants. She does not have guarding or rebound present and there are no hernias or masses present. The lower extremities are warm to touch without edema. The skin is warm, dry and intact without lesions or rashes. Results Laboratory Results: 12/20/17 04:55 12/20/17 04:55 12/13/17 12/13/17 12/14/17 12:33 18:36 00:30 Troponin I 0.021 0.018 0.020 NT-Pro-B Natriuret Pep 12/15/17 12/16/17 06:18 03:45 Troponin I NT-Pro-B Natriuret Pep 4580 H 4980 H Impressions: Abdomen/Pelvis CT 12/12/17 00:00 IMPRESSION: CT FINDINGS COMPATIBLE WITH HIGH GRADE DISTAL SMALL BOWEL OBSTRUCTION WITH TRANSITION POINT IN THE RIGHT LOWER QUADRANT. ADDITIONAL NOTE MADE OF INFLAMMATION INVOLVING THE TERMINAL ILEUM SUSPICIOUS FOR INFECTIOUS OR INFLAMMATORY BOWEL DISEASE. CORRELATE WITH PATIENT'S CLINICAL HISTORY. SMALL LEFT PLEURAL EFFUSION IN NODULAR INFLAMMATORY CHANGE INVOLVING THE OMENTUM PRESUMABLY REACTIVE TO OBSTRUCTION. Chest X-Ray 12/22/17 08:49 IMPRESSION: Small bilateral pleural effusions. Mild diffuse ground-glass opacity in the left lung, may represent pneumonia or asymmetric edema. Assessment & Plan - Diagnosis (1) Ambulatory dysfunction Is this a current diagnosis for this admission?: Yes Plan: Continue physical therapy. Plans are placement into skilled facility to regain strength. (2) Atrial fibrillation Qualifiers: Atrial fibrillation type: persistent Qualified Code(s): I48.1 - Persistent atrial fibrillation Is this a current diagnosis for this admission?: Yes Plan: Cardiology had been following. Goal is for rate control. Patient is not a good candidate for anticoagulation. (3) Dementia Qualifiers: Dementia type: unspecified type Dementia behavioral disturbance: without behavioral disturbance Qualified Code(s): F03.90 - Unspecified dementia without behavioral disturbance Is this a current diagnosis for this admission?: Yes Plan: The patient's Namenda has been restarted. In addition, she had evidence of withdrawal when SSRI therapy and benzodiazepines were stopped. These have been restarted. Would continue these medications indefinitely. (4) Glaucoma Qualifiers: Open angle glaucoma type: unspecified type Laterality: unspecified laterality Glaucoma stage: stage unspecified Is this a current diagnosis for this admission?: Yes Plan: Continue medicated eyedrops. (5) Respiratory failure Is this a current diagnosis for this admission?: Yes Plan: Resolved. Patient extubated 12/14/2017. Chest x-ray yesterday did demonstrate bilateral pleural effusions. However, clinically the patient does not appear volume overloaded. Will follow her exam and treat with diuretic therapy if needed. (6) Small bowel obstruction Is this a current diagnosis for this admission?: Yes Plan: Status post ex lap with lysis of adhesions and doing well. Date of surgery was 12/12/2017. (7) UTI (urinary tract infection) Is this a current diagnosis for this admission?: Yes Plan: Patient has completed therapy with ceftriaxone. (8) Volume overload Qualifiers: Hypervolemia type: unspecified Qualified Code(s): E87.70 - Fluid overload, unspecified Is this a current diagnosis for this admission?: Yes Plan: Resolved. - Time Time Spent with patient: 15-24 minutes - Plan Summary Plan Summary: The patient is stable for discharge. Once a bed has been obtained she will be discharged.
[2017-12-24] MEDS: LATANOPROST 0.005% OPH SOLN 2.5 ML OU SCH (18:30)
[2017-12-24] MEDS: LORAZEPAM 0.5 MG TABLET PO SCH (21:46)
[2017-12-25] MEDS: DILTIAZEM HCL 60 MG TABLET PO SCH ×3 (06:49→17:28)
[2017-12-25] MEDS: BENZONATATE 100 MG CAPSULE PO SCH ×3 (06:50→21:07)
[2017-12-25] MEDS: LEVALBUTEROL HCL NEB 0.63 MG/3 ML AMPUL NEB SCH ×2 (07:49→16:04)
[2017-12-25] MEDS: ENOXAPARIN SODIUM INJ 30 MG/0.3 ML DISP.SYRIN SUBCUT SCH (10:59)
[2017-12-25] MEDS: BRIMONIDINE TARTRATE 0.2% OPH SOLN 5 ML OD SCH ×2 (11:00→21:07)
[2017-12-25] MEDS: SERTRALINE HCL 50 MG TABLET PO SCH (11:00)
[2017-12-25] MEDS: MEMANTINE HCL 10 MG TABLET PO SCH (11:01)
[2017-12-25] MEDS: LATANOPROST 0.005% OPH SOLN 2.5 ML OU SCH (17:29)
--- NOTE | 2017-12-25 18:01 | PDOC PROGRESS REPORT ---
Subjective Progress Note for:: 12/25/17 Subjective:: No complaints Review of systems All organ systems evaluated and negative except as in subjective All laboratories and significant diagnostics have been reviewed Reason For Visit: SMALL BOWEL OBSTRUCTION Physical Exam Vital Signs: Temp Pulse Resp BP Pulse Ox 98.4 F 92 16 128/53 H 91 L 12/25/17 09:39 12/25/17 08:16 12/25/17 09:39 12/25/17 08:16 12/25/17 08:16 Intake & Output 12/24/17 12/25/17 12/26/17 06:59 06:59 06:59 Intake Total 331 547 Output Total 900 800 Balance -569 -253 Weight 63.3 kg 61.9 kg General appearance: PRESENT: no acute distress, cooperative, well-developed, well-nourished Head exam: PRESENT: atraumatic, normocephalic Eye exam: PRESENT: EOMI, PERRLA Ear exam: PRESENT: normal external ear exam Mouth exam: PRESENT: moist Neck exam: PRESENT: full ROM. ABSENT: JVD, lymphadenopathy, tenderness Respiratory exam: PRESENT: clear to auscultation sacha Cardiovascular exam: PRESENT: RRR. ABSENT: diastolic murmur, systolic murmur Vascular exam: PRESENT: normal capillary refill GI/Abdominal exam: PRESENT: normal bowel sounds, soft. ABSENT: tenderness Extremities exam: PRESENT: full ROM, joint swelling Musculoskeletal exam: PRESENT: ambulatory, full ROM Neurological exam: PRESENT: alert, awake, oriented to person, oriented to place , oriented to time, oriented to situation, CN II-XII grossly intact Psychiatric exam: PRESENT: appropriate affect, normal mood Skin exam: PRESENT: intact, normal color Results Laboratory Results: 12/20/17 04:55 12/20/17 04:55 12/13/17 12/13/17 12/14/17 12:33 18:36 00:30 Troponin I 0.021 0.018 0.020 NT-Pro-B Natriuret Pep 12/15/17 12/16/17 06:18 03:45 Troponin I NT-Pro-B Natriuret Pep 4580 H 4980 H Impressions: Abdomen/Pelvis CT 12/12/17 00:00 IMPRESSION: CT FINDINGS COMPATIBLE WITH HIGH GRADE DISTAL SMALL BOWEL OBSTRUCTION WITH TRANSITION POINT IN THE RIGHT LOWER QUADRANT. ADDITIONAL NOTE MADE OF INFLAMMATION INVOLVING THE TERMINAL ILEUM SUSPICIOUS FOR INFECTIOUS OR INFLAMMATORY BOWEL DISEASE. CORRELATE WITH PATIENT'S CLINICAL HISTORY. SMALL LEFT PLEURAL EFFUSION IN NODULAR INFLAMMATORY CHANGE INVOLVING THE OMENTUM PRESUMABLY REACTIVE TO OBSTRUCTION. Chest X-Ray 12/22/17 08:49 IMPRESSION: Small bilateral pleural effusions. Mild diffuse ground-glass opacity in the left lung, may represent pneumonia or asymmetric edema. Assessment & Plan - Diagnosis (1) Ambulatory dysfunction Is this a current diagnosis for this admission?: Yes Plan: Will be transferred to assisted facility and I am (2) Small bowel obstruction due to adhesions Is this a current diagnosis for this admission?: Yes Plan: Recuperating well (3) UTI (urinary tract infection) Is this a current diagnosis for this admission?: Yes Plan: Fully treated with Rocephin. Discontinue Snider to avoid recurrence - Time Time Spent with patient: 15-24 minutes Medications reviewed and adjusted accordingly: Yes Within: within 24 hours - Inpatient Certification Based on my medical assessment, after consideration of the patient's comorbidities, presenting symptoms, or acuity I expect that the services needed warrant INPATIENT care.: Yes I certify that my determination is in accordance with my understanding of Medicare's requirements for reasonable and necessary INPATIENT services [42 CFR 412.3e].: Yes Medical Necessity: Need Close Monitoring Due to Risk of Patient Decompensation
[2017-12-25] MEDS: LORAZEPAM 0.5 MG TABLET PO SCH (20:23)
[2017-12-26] MEDS: LEVALBUTEROL HCL NEB 0.63 MG/3 ML AMPUL NEB SCH ×2 (00:16→08:17)
[2017-12-26] MEDS: DILTIAZEM HCL 60 MG TABLET PO SCH ×3 (00:55→12:00)
[2017-12-26] MEDS: HALOPERIDOL LACTATE INJ 5 MG/1 ML VIAL IV PRN (01:01)
[2017-12-26] MEDS: BENZONATATE 100 MG CAPSULE PO SCH ×2 (07:07→13:21)
[2017-12-26 08:11] VITALS: BP 132/63
[2017-12-26] MEDS: ENOXAPARIN SODIUM INJ 30 MG/0.3 ML DISP.SYRIN SUBCUT SCH (10:25)
[2017-12-26] MEDS: SERTRALINE HCL 50 MG TABLET PO SCH (10:25)
[2017-12-26] MEDS: BRIMONIDINE TARTRATE 0.2% OPH SOLN 5 ML OD SCH (10:25)
[2017-12-26] MEDS: MEMANTINE HCL 10 MG TABLET PO SCH (10:26)
--- NOTE | 2017-12-26 12:38 | PDOC DISCHARGE SUMMARY ---
General - Admit/Disc Date/PCP Admission Date/Primary Care Provider: 12/12/17 21:01 DARRICK MONAHAN Discharge Date: 12/26/17 - Discharge Diagnosis (1) Small bowel obstruction due to adhesions Is this a current diagnosis for this admission?: Yes (2) UTI (urinary tract infection) Is this a current diagnosis for this admission?: Yes (3) Ambulatory dysfunction Is this a current diagnosis for this admission?: Yes (4) Atrial fibrillation Is this a current diagnosis for this admission?: Yes (5) Dementia Is this a current diagnosis for this admission?: Yes (6) Glaucoma Is this a current diagnosis for this admission?: Yes (7) Hypokalemia Is this a current diagnosis for this admission?: Yes (8) Respiratory failure Is this a current diagnosis for this admission?: Yes (9) Volume overload Is this a current diagnosis for this admission?: Yes - Additional Information Resuscitation Status: Full Code Prescriptions: Diltiazem HCl [Diltiazem 24Hr Cd] 240 mg PO DAILY PRN #5 cap.er.24h PRN Reason: Lorazepam [Ativan 0.5 mg Tablet] 0.5 mg PO BIDP PRN #5 tablet PRN Reason: Anxiety Home Medications: Brimonidine Tartrate [Alphagan P] 1 drop OD BID 12/13/17 Latanoprost [Xalatan] 1 drop OU QHS 12/13/17 Memantine HCl [Namenda 10 mg Tablet] 10 mg PO DAILY 12/13/17 Sertraline HCl [Zoloft 50 mg Tablet] 75 mg PO DAILY 12/13/17 Spironolactone [Aldactone] 50 mg PO QAMP PRN 12/13/17 Diltiazem HCl [Diltiazem 24Hr Cd] 240 mg PO DAILY PRN #5 cap.er.24h 12/26/17 Lorazepam [Ativan 0.5 mg Tablet] 0.5 mg PO BIDP PRN #5 tablet 12/26/17 History of Present Illness History of Present Illness: BENJAMIN PRAJAPATI is a 87 year old female wo presented to ED with 3 day hx of nausea and emesis, bilious, progressive abdominal discomfort, and obstipation for several days. A CT scan was obtained and it was significant for small bowel mechanical obstruction. Patient was admitted under the surgicalist service for further management Hospital Course Hospital Course: Patient was admitted initially under the surgical list service. She underwent laparoscopic surgery of adhesions on December 12 and tolerated procedure well. Patient was extubated on December 14, 2017. Postoperatively patient got complicated with atrial fibrillation which was managed by cardiology service. Patient responded to Cardizem and at the time of discharge she has been discharged on Cardizem extended release 240 mg 1 p.o. daily anticoagulation was not contemplated since patient was deemed to be high risk for bleeding. When she initially presented to our facility on admission patient presented with an incidental finding of 100,000 colonies of E. coli which was treated. Patient still requiring oxygen supplementation and recommend incoming facility to try to wean patient off as tolerated. Since patient had ambulatory dysfunction she is referred to a group home facility for rehab purposes. All electrolyte abnormalities were replaced and trended. Patient suffers from dementia and has been stable from that stand point of view. Patient had achieved maximum benefit of hospitalization stay and will proceed to discharge under stable condition. Physical Exam Vital Signs: Temp Pulse Resp BP Pulse Ox 98.4 F 95 14 132/63 H 90 L 12/26/17 08:07 12/26/17 08:16 12/26/17 08:16 12/26/17 08:07 12/26/17 08:16 Intake & Output 12/25/17 12/26/17 12/27/17 06:59 06:59 06:59 Intake Total 547 477 Output Total 800 200 Balance -253 277 Weight 61.9 kg 62.2 kg General appearance: PRESENT: no acute distress, cooperative, thin Head exam: PRESENT: atraumatic Eye exam: PRESENT: EOMI, PERRLA Ear exam: PRESENT: normal external ear exam Mouth exam: PRESENT: moist Neck exam: PRESENT: full ROM. ABSENT: JVD, lymphadenopathy, tenderness Respiratory exam: PRESENT: clear to auscultation sacha Cardiovascular exam: PRESENT: RRR, systolic murmur. ABSENT: diastolic murmur Vascular exam: PRESENT: normal capillary refill GI/Abdominal exam: PRESENT: normal bowel sounds, soft. ABSENT: tenderness Extremities exam: PRESENT: full ROM. ABSENT: joint swelling, pedal edema Neurological exam: PRESENT: alert, awake, oriented to person, oriented to place Psychiatric exam: PRESENT: appropriate affect, normal mood Skin exam: PRESENT: intact, normal color Results Laboratory Results: 12/20/17 04:55 12/20/17 04:55 12/13/17 12/13/17 12/14/17 12:33 18:36 00:30 Troponin I 0.021 0.018 0.020 NT-Pro-B Natriuret Pep 12/15/17 12/16/17 06:18 03:45 Troponin I NT-Pro-B Natriuret Pep 4580 H 4980 H Impressions: Abdomen/Pelvis CT 12/12/17 00:00 IMPRESSION: CT FINDINGS COMPATIBLE WITH HIGH GRADE DISTAL SMALL BOWEL OBSTRUCTION WITH TRANSITION POINT IN THE RIGHT LOWER QUADRANT. ADDITIONAL NOTE MADE OF INFLAMMATION INVOLVING THE TERMINAL ILEUM SUSPICIOUS FOR INFECTIOUS OR INFLAMMATORY BOWEL DISEASE. CORRELATE WITH PATIENT'S CLINICAL HISTORY. SMALL LEFT PLEURAL EFFUSION IN NODULAR INFLAMMATORY CHANGE INVOLVING THE OMENTUM PRESUMABLY REACTIVE TO OBSTRUCTION. Chest X-Ray 12/22/17 08:49 IMPRESSION: Small bilateral pleural effusions. Mild diffuse ground-glass opacity in the left lung, may represent pneumonia or asymmetric edema. Plan Discharge Plan: Transfer to SNF Time Spent: Less than 30 Minutes
== END 2017-12-26 16:04 | DRG 335 ==
LOC: ER 15:03 → EH 21:01 → ICU 23:23 → 3N 12-16 20:15
PROVIDERS: ADMIT Surgery; ATTEND Surgery
PROC: 0DN80ZZ Release Small Intestine, Open Approach (ICD-10-PCS; 2017-12-12)
PROC: 0DNB0ZZ Release Ileum, Open Approach (ICD-10-PCS; principal; 2017-12-12 22:00)
PROC: 0W9G0ZZ Drainage of Peritoneal Cavity, Open Approach (ICD-10-PCS; 2017-12-13)
PROC: 5A1945Z Respiratory Ventilation, 24-96 Consecutive Hours (ICD-10-PCS; 2017-12-13)
DX: K56.50 Intestinal adhesions [bands], unspecified as to partial versus complete obstruction (principal); J96.90 Respiratory failure, unspecified, unspecified whether with hypoxia or hypercapnia; J18.9 Pneumonia, unspecified organism; I48.1 Persistent atrial fibrillation; N39.0 Urinary tract infection, site not specified; R18.8 Other ascites; F05 Delirium due to known physiological condition; E87.70 Fluid overload, unspecified; R11.10 Vomiting, unspecified; H40.9 Unspecified glaucoma; E87.6 Hypokalemia; I27.20 Pulmonary hypertension, unspecified; R26.9 Unspecified abnormalities of gait and mobility; B96.20 Unspecified Escherichia coli [E. coli] as the cause of diseases classified elsewhere; F03.90 Unspecified dementia, unspecified severity, without behavioral disturbance, psychotic disturbance, mood disturbance, and anxiety; Z79.82 Long term (current) use of aspirin; Z79.899 Other long term (current) drug therapy
CPT/HCPCS: 00790; 36415; 71045; 74177; 80048; 80053; 81001; 82803; 83605; 83690; 83735; 83880; 84100; 84132; 84484; 85025; 85027; 86850; 86870; 86900; 86901; 87086; 87088; 87186; 87493; 87804; 93005; 93010; 93306; 94002; 94003; 96361; 96374; 99285; C9290; G8978-GP; G8979-GP; G8987-GO; G8988-GO; J0131; J0330; J0694; J0696; J1160; J1170; J1200; J1630; J1650; J1956; J2060; J2250; J2270; J2405; J2704; J3010; J3480; J3490; J7030; J7040; J7614; J7620; S0028